=== PATIENT | female | born 1975 | race Caucasian/White ===

== ENCOUNTER 2018-05-22 18:12 | Observation (INO) | payer OTHER ==
--- OUTSIDE RECORDS SUMMARY | 2018-05-22 18:15 | XMS REPORT | Clinical Summary ---
:1975 Author Organization [facility] Address [address] [place] [address] Care Team Providers Name Role Phone Houston Sahu MD Primary Care Provider Allergies Active Allergy Reactions Severity Noted Date Comments Amoxicillin-Pot Clavulanate 01/27/2016 Clindamycin Hcl 01/27/2016 Codeine 01/27/2016 Current Medications Prescription Sig. Disp. Refills Start Date End Date Status nadolol (CORGARD) 40 Take 40 mg by 01/13/2016 Active MG tablet mouth daily. cholecalciferol, Take 2,000 Active vitamin D3, (VITAMIN Units by D3) 2,000 unit mouth daily. capsule capsule B complex with Take by mouth Active C#20-folic acid 1 mg daily. capsule levothyroxine 07/02/2017 Active (SYNTHROID, LEVOXYL) 125 mcg tablet rosuvastatin 07/04/2017 Active (CRESTOR) 10 MG tablet methotrexate 2.5 MG Take 8 32 tablet 2 08/27/2017 08/27/2018 Active tablet tablets (20 mg total) by mouth once a week. folic acid (FOLVITE) Take 1 tablet 30 tablet 1 09/10/2017 09/10/2018 Active 1 MG tablet (1 mg total) by mouth daily. meloxicam (MOBIC) 15 Take 1 tablet 30 tablet 3 10/31/2017 10/31/2018 Active mg tablet (15 mg total) by mouth daily. folic acid (FOLVITE) Take 1 tablet 30 tablet 2 06/16/2016 06/05/2017 Discontinued 1 MG tablet (1 mg total) by mouth daily. simvastatin (ZOCOR) Take 10 mg by 07/24/2017 Discontinued 10 MG tablet mouth nightly. levothyroxine Take 25 mcg 07/24/2017 Discontinued (SYNTHROID, LEVOXYL) by mouth 25 mcg tablet every morning. meloxicam (MOBIC) 15 Take 1 tablet 30 tablet 2 03/14/2017 06/27/2017 Discontinued mg tablet (15 mg total) by mouth daily. methotrexate 2.5 MG Take 8 24 tablet 5 03/14/2017 08/27/2017 Discontinued tablet tablets (20 mg total) by mouth once a week for 180 days. folic acid (FOLVITE) Take 1 tablet 30 tablet 2 06/05/2017 09/10/2017 Discontinued 1 MG tablet (1 mg total) by mouth daily. meloxicam (MOBIC) 15 Take 1 tablet 30 tablet 1 06/27/2017 09/03/2017 Discontinued mg tablet (15 mg total) by mouth daily. sulfaSALAzine Take 1 tablet 60 tablet 1 07/24/2017 09/10/2017 Discontinued (AZULFIDINE EN-TAB) ([address] tablet total) by mouth 2 (two) times a day for 90 days. meloxicam (MOBIC) 15 Take 1 tablet 30 tablet 1 09/03/2017 10/31/2017 Discontinued mg tablet (15 mg total) by mouth daily. sulfaSALAzine Take 1 tablet 60 tablet 1 09/10/2017 12/09/2017 (AZULFIDINE EN-TAB) ([address] tablet total) by mouth 2 (two) times a day for 90 days. 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 Hypothyroidism 01/27/2016 Migraines 01/27/2016 Fatigue Visual impairment Menstrual disorder Encounters Date Type Specialty Care Team Description 03/11/2018 Refill Rheumatology Angela Kent MD 11/01/2017 Refill Rheumatology Fallon Hernandez MA 10/31/2017 Refill Rheumatology Fallon Hernandez MA 09/10/2017 Refill Rheumatology Russel Brown MA 09/03/2017 Refill Rheumatology Russel Brown MA 08/27/2017 Refill Rheumatology Russel Brown MA 08/07/2017 Orders Only Rheumatology Provider, MD Art 07/24/2017 Office Visit Rheumatology Elizabeth Olivo Spondyloarthritis ( Primary Dx); MD Ritu Follow-up examination following treatment with high-risk medication; Hypothyroidism, unspecified type 06/27/2017 Refill Rheumatology Russel Brown MA 06/05/2017 Refill Rheumatology BrownRussel MA after 05/21/2017 Family History Medical History Relation Name Comments Multiple sclerosis Father Other Father vascular disease Hyperlipidemia Maternal Aunt Hypertension Maternal Aunt Psoriasis Maternal Aunt Breast cancer Maternal Grandmother Hyperlipidemia Maternal Grandmother Stroke Maternal Grandmother Lung cancer Mother Other Mother MGF, CAD Thyroid disease Mother Alzheimer's disease Paternal Aunt Diabetes Paternal Aunt Heart disease Paternal Grandfather Heart attack Sister age 42 Relation Name Status Comments Father Maternal Aunt Maternal Grandmother Mother Paternal Aunt Paternal Grandfather Sister Social History Tobacco Use Types Packs/Day Years Used Date Former Smoker Cigarettes Quit: 1995 Smokeless Tobacco: Never Used Alcohol Use Drinks/Week oz/Week Comments Yes 2 Glasses of wine 1.2 month Sex Assigned at Date Recorded Not on file Last Filed Vital Signs Vital Sign Reading Time Taken Blood Pressure 137/94 07/24/2017 2:25 PM [employer]EL[employer] Pulse 81 07/24/2017 2:25 PM [employer] INTER[employer]EL[employer] Temperature - - Respiratory Rate - - Oxygen Saturation - - Inhaled Oxygen Concentration - - Weight 114 kg (251 lb) 07/24/2017 2:25 PM [employer]EL[employer] Height 169.5 cm (5' 6.75") 07/24/2017 2:25 PM [employer] INTER[employer] DEVELOPER Body Mass Index 39.61 07/24/2017 2:25 PM 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 after 05/21/2017 Results Miscellaneous Lab Result (08/01/2017) Specimen Blood Narrative Performed At Comprehensive metabolic panel (06/02/2017 8:30 AM) Glucose 127 (H) 65 - 99 mg/dL [facility] Comment: [facility] Fasting reference interval For someone without known diabetes, a glucose value >125 mg/dL indicates that they may have diabetes and this should be confirmed with a follow-up test. BUN, whole blood 9 7 - 25 mg/dL [facility] Creatinine 0.67 0.50 - 1.10 mg/dL [facility] EGFR Non-Afr. Nauruan 107 > OR=60 [facility] mL/min/1.73m2 [facility] EGFR 124 > OR=60 [facility] mL/min/1.73m2 [facility] BUN/creatinine ratio NOT APPLICABLE 6 - 22 (calc) [facility] Sodium 139 135 - 146 mmol/L [facility] Potassium 4.6 3.5 - 5.3 mmol/L [facility] Chloride 101 98 - 110 mmol/L [facility] CO2 29 20 - 31 mmol/L [facility] Calcium 9.0 8.6 - 10.2 mg/dL [facility] Protein 6.3 6.1 - 8.1 g/dL [facility] Albumin, S 4.2 3.6 - 5.1 g/dL [facility] Globulin, total 2.1 1.9 - 3.7 g/dL [facility] (calc) [facility] Albumin/globulin ratio 2.0 1.0 - 2.5 (calc) [facility] Total bilirubin 0.5 0.2 - 1.2 mg/dL [facility] Alkaline phosphatase 51 33 - 115 U/L [facility] AST 25 10 - 30 U/L [facility] ALT 29 6 - 29 U/L [facility] Specimen Blood Narrative Performed At FASTING:[facility] Other Results Text Performing Organization Information: Site ID: [id number] Name: [facility] Address: [address] [place] [address] Director: Eulalia Alvarado MD Performing Organization Address City/State/Zipcode Phone Number [facility] [facility] [address] [phone] after 05/21/2017 Insurance Payer Benefit Plan / Group Subscriber ID Type Phone Address [facility] xxxxxxxxxxx Commercial AETNA AETNA HMO,POS,EPO, MC/EC xxxxxxxxx HMO [phone] [place] [address]
[2018-05-22] MEDS ORDERED: ONDANSETRON 4 MG/2 ML VIAL ONE ×2 (19:08→21:02)
[2018-05-22] MEDS ORDERED: MORPHINE 4 MG/ML SYR ONE ×2 (19:08→22:07)
[2018-05-22] MEDS ORDERED: NA CHLORIDE 0.9% 1,000 ML ONE (19:08)
[2018-05-22 19:26] LABS: Absolute Neutrophil 7.8 K/uL (1.8-8.0); Basophils % 0.9 % (0-1.3); Eosinophils % 2.2 % (0-4.4); Hematocrit 39.2 % (36.0-45.0); Lymphocytes % 24.5 % (15.3-44.8); MCH 31.9 pg (27.0-35.0); MCV 95.4 fL (80-100); MPV 8.8 fL (7.6-11.3); Monocytes % 7.8 % (3.3-12.3); RBC Red Blood Cell Count 4.11 M/uL (3.86-4.86)
--- NOTE | 2018-05-22 20:10 | RAD REPORT ---
EXAM DESCRIPTION: CT - Abdomen Pelvis W Contrast - 05/22/2018 7:56 pm CLINICAL HISTORY: Abdominal pain, left lower quadrant pain COMPARISON: CT imaging December 14, 2017 TECHNIQUE: Biphasic, helical CT imaging of the abdomen and pelvis was performed following 100 ml non -ionic IV contrast. Oral contrast was given. All CT scans are performed using dose optimization technique as appropriate and may include automated exposure control or mA/KV adjustment according to patient size. FINDINGS: No suspicious findings in the lung bases. Diffuse fatty infiltration of the liver is present. No focal liver lesion. Spleen and pancreas are un remarkable. Cholecystectomy clips are present. No biliary tree dilatation. Symmetric renal function is seen with no hydronephrosis or suspicious renal mass. No pyelonephritis o r acute renal parenchymal process. No adrenal abnormality. Contracted urinary bladder shows no suspic ious findings. Uterus is absent. No ovarian abnormality seen. No stomach or small bowel abnormality. Appendix is normal. Colon from cecum through mid descending co aspen shows no suspicious finding. In the proximal sigmoid colon left lower quadrant there is wall thic kening and edematous/inflammatory stranding present over a 4 centimeter long segment. There is additi onal sigmoid diverticulosis. No abscess, free air or surgically emergent finding. No free air or pne umatosis. No other inflammatory stranding. No mass or bulky lymphadenopathy. A 6 centimeter diameter infraumbilical hernia is present. Neck is 4 cm. Hernia size has enlarged minimally since December. No suspicious bony findings. IMPRESSION: Moderate acute diverticulitis proximal sigmoid colon. No abscess, free air or surgically emergent component. Diffuse fatty infiltration of the liver. Fat only infraumbilical hernia slightly enlarged from May examination.
[2018-05-22 20:44] LABS: Urine Blood TRACE (NEG); Urine Glucose 1+ (NEG); Urine Protein NEGATIVE (NEG)
[2018-05-22] MEDS ORDERED: CIPROFLOXACIN 400mg IV 400 MG/200 ML BAG IV ONE (21:02)
[2018-05-22] MEDS ORDERED: METRONIDAZOLE 500mg IVPB 500 MG/100 ML BAG IV ONE (21:02)
[2018-05-22 21:23] LABS: ALT/SGPT 70 U/L (12-78); AST/SGOT 49 U/L (15-37); Albumin 3.8 g/dL (3.4-5.0); Alkaline Phosphatase 68 U/L (45-117); BUN Blood Urea Nitrogen 9 mg/dL (7-18); Bicarbonate 28 mmol/L (21-32); Bilirubin Direct 0.2 mg/dL (0-0.2); Bilirubin Total 0.9 mg/dL (0.2-1.0); Glucose Level 98 mg/dL (74-106); Lipase 116 U/L (73-393); Potassium 3.8 mmol/L (3.5-5.1); Protein, Total 7.4 g/dL (6.4-8.2); Sodium Level 139 mmol/L (136-145)
--- NOTE | 2018-05-22 21:59 | ER ---
Nurse's Notes [facility] Name: Niki Martino Age: 43 yrs Sex: Female : 1975 Arrival Date: 05/22/2018 Time: 18:14 Bed 23 Private MD: Houston Sahu Diagnosis: Diverticulitis of large intestine without perforation or abscess without bleeding Presentation: 05/22 18:20 Presenting complaint: Patient states: Reports LLQ pain for 3-4 days with loose stools. aj Patient denies blood in stool. Transition of care: patient was not received from another setting of care. Onset of symptoms was May 22, 2018. Risk Assessment: Do you want to hurt yourself or someone else? Patient reports no desire to harm self or others. Initial Sepsis Screen: Does the patient meet any 2 criteria? No. Patient's initial sepsis screen is negative. Does the patient have a suspected source of infection? No. Patient's initial sepsis screen is negative. Care prior to arrival: None. 18:20 Method Of Arrival: Ambulatory aj 18:20 Acuity: LUZMARIA 3 aj Triage Assessment: 18:24 General: Appears in no apparent distress. comfortable, Behavior is calm, cooperative, aj appropriate for age. Pain: Complains of pain in left lower quadrant. Neuro: Level of Consciousness is awake, alert, obeys commands, Oriented to person, place, time, situation, Appropriate for age. Respiratory: Airway is patent Respiratory effort is even, unlabored, Respiratory pattern is regular, symmetrical. GI: Reports lower abdominal pain. Derm: Skin is intact, is healthy with good turgor, Skin is pink, warm \T\ dry. normal. 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:24 LMP N/A - Hysterectomy aj Historical: - Allergies: 18:24 Augmentin; aj 18:24 Cleocin; aj 18:24 Codeine; aj 18:24 BENZOYL PEROXIDE; aj - Home Meds: 18:24 Trulicity 0.75 mg/0.5 mL subcutaneous pnij 0.5 mL once wkly [Active]; Synjardy oral aj oral [Active]; levothyroxine 125 mcg tab 1 tab once daily [Active]; Crestor 10 mg oral tab 1 tab once daily [Active]; folic acid 1 mg Oral tab 1 tab once daily [Active]; nadolol oral oral [Active]; meloxicam 15 mg oral tab 1 tab once daily [Active]; Belsomra 15 mg oral tab 1 tab [Active]; methotrexate sodium 2.5 mg Oral tab 1 tab once wkly [Active]; - PMHx: 18:24 Migraines; Hyperlipidemia; Diabetes - NIDDM; Arthritis; Hypothyroidism; aj - PSHx: 18:24 Cholecystectomy; abdominal surgery; Tubal ligation; ablation; aj - Immunization history:: Adult Immunizations up to date. - Social history:: Smoking status: Patient/guardian denies using tobacco. - Ebola Screening: : Patient negative for fever greater than or equal to 101.5 degrees Fahrenheit, and additional compatible Ebola Virus Disease symptoms Patient denies exposure to infectious person Patient denies travel to an Ebola-affected area in the 21 days before illness onset No symptoms or risks identified at this time. Screenin:30 Abuse screen: Denies threats or abuse. Nutritional screening: No deficits noted. tl3 Tuberculosis screening: No symptoms or risk factors identified. Fall Risk None identified. Assessment: 18:30 General: Appears uncomfortable, well groomed, well developed, well nourished, Behavior tl3 is calm, cooperative, appropriate for age. Pain: Complains of pain in abdomen and left lower quadrant Pain currently is 6 out of 10 on a pain scale. at worst was 10 out of 10 on a pain scale. Neuro: No deficits noted. Level of Consciousness is awake, alert, obeys commands, Oriented to person, place, time, situation, Appropriate for age. Cardiovascular: Patient's skin is warm and dry. Respiratory: Airway is patent Respiratory effort is even, unlabored, Respiratory pattern is regular, symmetrical. GI: Bowel sounds present X 4 quads. Abdomen is tender to palpation. : No signs and/or symptoms were reported regarding the genitourinary system. EENT: No signs and/or symptoms were reported regarding the EENT system. Derm: No signs and/or symptoms reported regarding the dermatologic system. Musculoskeletal: No signs and/or symptoms reported regarding the musculoskeletal system. 19:38 Reassessment: Patient appears in no apparent distress at this time. Patient and/or tl3 family updated on plan of care and expected duration. Pain level reassessed. Patient is alert, oriented x 3, equal unlabored respirations, skin warm/dry/pink. pillow offered and pt position changed, pain has decreased. 21:06 Reassessment: Patient appears in no apparent distress at this time. Patient and/or tl3 family updated on plan of care and expected duration. Pain level reassessed. Patient is alert, oriented x 3, equal unlabored respirations, skin warm/dry/pink. pillow offered for comfort. Vital Signs: 18:24 BP 134 / 83; Pulse 74; Resp 18; Temp 97.2; Pulse Ox 99% on R/A; Weight 108.86 kg; aj Height 5 ft. 5 in. (165.10 cm); 18:30 BP 128 / 80; Pulse 68; Resp 18; Pulse Ox 98% on R/A; tl3 19:38 BP 112 / 58; Pulse 58; Resp 18; Pulse Ox 98% on R/A; tl3 21:06 BP 113 / 63; Pulse 62; Resp 18; Pulse Ox 99% on R/A; tl3 18:24 Body Mass Index 39.94 (108.86 kg, 165.10 cm) aj ED Course: 18:14 Patient arrived in ED. mr 18:15 Houston Sahu MD is Private Physician. mr 18:21 Triage completed. aj 18:24 Arm band placed on left wrist. Patient placed in an exam room. aj 18:26 Lia Barnes, [place] is Primary Nurse. tl3 18:30 Khai Dawson NP is PHCP. pm1 18:30 Jose Francisco Michaud MD is Attending Physician. pm1 18:30 Patient has correct armband on for positive identification. tl3 18:30 No provider procedures requiring assistance completed. tl3 19:23 Radiology exam delayed due to lab results not completed at this time. (BUN/Creatinine) mw3 test not completed at this time. 19:[address] mw3 19:55 CT completed. Patient tolerated procedure well. Patient moved back from CT. mw3 19:56 CT Abd/Pelvis - W/Contrast: IV contrast only In Process Unspecified. EDMS 21:58 Beto Jhaveri MD is Hospitalizing Provider. pm1 23:48 Patient admitted, IV remains in place. tl3 Administered Medications: 19:10 Drug: NS 0.9% 1000 ml Route: IV; Rate: 1000 ml; Site: left antecubital; Delivery: tl3 Primary tubing; 21:07 Follow up: IV Status: Completed infusion; IV Intake: 1000ml tl3 19:10 Drug: morphine 4 mg Route: IVP; Infused Over: 2 mins; Site: left antecubital; tl3 19:41 Follow up: Response: No adverse reaction; Pain is decreased tl3 19:10 Drug: Zofran 4 mg Route: IVP; Infused Over: 2 mins; Site: left antecubital; tl3 19:41 Follow up: Response: No adverse reaction tl3 21:05 Drug: Cipro 500 mg Route: PO; tl3 22:08 Follow up: Response: No adverse reaction tl3 21:05 Drug: Flagyl 500 mg Volume: 100 ml; Route: IVPB; Rate: 200 ml/hr; Infused Over: 30 tl3 mins; Site: left antecubital; 22:08 Follow up: IV Status: Completed infusion; IV Intake: 100ml tl3 21:34 Drug: Zofran 4 mg Route: IVP; Infused Over: 2 mins; Site: left antecubital; tl3 22:07 Follow up: Response: No adverse reaction tl3 22:07 Drug: morphine 4 mg Route: IVP; Infused Over: 2 mins; Site: left antecubital; tl3 23:49 Follow up: Response: No adverse reaction; Pain is decreased tl3 Intake: 21:07 IV: 1000ml; Total: 1000ml. tl3 22:08 IV: 100ml; Total: 1100ml. tl3 Outcome: 21:59 Decision to Hospitalize by Provider. pm1 23:47 Admitted to Med/surg accompanied by tech, via wheelchair, with chart, Report called to luis Garza RN 23:47 Condition: stable 23:47 Instructed on the need for admit, Demonstrated understanding of instructions. 05/23 00:41 Patient left the ED. tl3 Signatures: Dispatcher [employer] EDMS Cassia White RN RN aj Rivera, Khai Ho, [employer]OOFING PLANT SUPERVISOR [employer]OO[employer]ING PLANT SUPERVISOR pm1 Lia Barnes RN RN tl3 Nena Rodriguez mw3
--- NOTE | 2018-05-22 21:59 | EDPHYS ---
Physician Documentation [facility] Name: Niki Martino Age: 43 yrs Sex: Female : 1975 Arrival Date: 05/22/2018 Time: 18:14 Bed 23 Private MD: Houston Sahu ED Physician Jose Francisco Michaud HPI: 05/22 19:00 This 43 yrs old Female presents to ER via Ambulatory with complaints of pm1 Abdominal Pain, Nausea, Diarrhea. 19:00 The patient presents with abdominal pain in the left lower quadrant. Onset: The pm1 symptoms/episode began/occurred 5 day(s) ago. The symptoms do not radiate. Associated signs and symptoms: Pertinent positives: diarrhea, nausea, Pertinent negatives: chest pain, dysuria, fever, shortness of breath. The symptoms are described as achy, constant. Modifying factors: The symptoms are alleviated by nothing, the symptoms are aggravated by positioning. Severity of pain: in the emergency department the pain is actually worse. The patient has not experienced similar symptoms in the past. The patient has not recently seen a physician, the patient's primary care provider is Dr. Sona Wilcox, Dr. Jhaveri. 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 LMP N/A - Hysterectomy aj Historical: - Allergies: 18:24 Augmentin; aj 18:24 Cleocin; aj 18:24 Codeine; aj 18:24 BENZOYL PEROXIDE; aj - Home Meds: 18:24 Trulicity 0.75 mg/0.5 mL subcutaneous pnij 0.5 mL once wkly [Active]; Synjardy oral aj oral [Active]; levothyroxine 125 mcg tab 1 tab once daily [Active]; Crestor 10 mg oral tab 1 tab once daily [Active]; folic acid 1 mg Oral tab 1 tab once daily [Active]; nadolol oral oral [Active]; meloxicam 15 mg oral tab 1 tab once daily [Active]; Belsomra 15 mg oral tab 1 tab [Active]; methotrexate sodium 2.5 mg Oral tab 1 tab once wkly [Active]; - PMHx: 18:24 Migraines; Hyperlipidemia; Diabetes - NIDDM; Arthritis; Hypothyroidism; aj - PSHx: 18:24 Cholecystectomy; abdominal surgery; Tubal ligation; ablation; aj - Immunization history:: Adult Immunizations up to date. - Social history:: Smoking status: Patient/guardian denies using tobacco. - Ebola Screening: : Patient negative for fever greater than or equal to 101.5 degrees Fahrenheit, and additional compatible Ebola Virus Disease symptoms Patient denies exposure to infectious person Patient denies travel to an Ebola-affected area in the 21 days before illness onset No symptoms or risks identified at this time. ROS: 19:00 Constitutional: Negative for fever, chills, and weight loss, Eyes: Negative for injury, pm1 pain, redness, and discharge, ENT: Negative for injury, pain, and discharge, Neck: Negative for injury, pain, and swelling, Cardiovascular: Negative for chest pain, palpitations, and edema, Respiratory: Negative for shortness of breath, cough, wheezing, and pleuritic chest pain. 19:00 Back: Negative for injury and pain, : Negative for injury, bleeding, discharge, and swelling, MS/Extremity: Negative for injury and deformity, Skin: Negative for injury, rash, and discoloration, Neuro: Negative for headache, weakness, numbness, tingling, and seizure. 19:00 Abdomen/GI: Positive for abdominal pain, nausea, diarrhea, Negative for vomiting, rectal bleeding. Exam: 19:00 Constitutional: This is a well developed, well nourished patient who is awake, alert, pm1 and in no acute distress. Head/Face: Normocephalic, atraumatic. Eyes: Pupils equal round and reactive to light, extra-ocular motions intact. Lids and lashes normal. Conjunctiva and sclera are non-icteric and not injected. Cornea within normal limits. Periorbital areas with no swelling, redness, or edema. ENT: Nares patent. No nasal discharge, no septal abnormalities noted. Tympanic membranes are normal and external auditory canals are clear. Oropharynx with no redness, swelling, or masses, exudates, or evidence of obstruction, uvula midline. Mucous membranes moist. Neck: Trachea midline, no thyromegaly or masses palpated, and no cervical lymphadenopathy. Supple, full range of motion without nuchal rigidity, or vertebral point tenderness. No Meningismus. Chest/axilla: Normal chest wall appearance and motion. Nontender with no deformity. No lesions are appreciated. Cardiovascular: Regular rate and rhythm with a normal S1 and S2. No gallops, murmurs, or rubs. Normal PMI, no JVD. No pulse deficits. Respiratory: Lungs have equal breath sounds bilaterally, clear to auscultation and percussion. No rales, rhonchi or wheezes noted. No increased work of breathing, no retractions or nasal flaring. 19:00 Back: No spinal tenderness. No costovertebral tenderness. Full range of motion. Skin: Warm, dry with normal turgor. Normal color with no rashes, no lesions, and no evidence of cellulitis. MS/ Extremity: Pulses equal, no cyanosis. Neurovascular intact. Full, normal range of motion. 19:00 Abdomen/GI: Inspection: abdomen appears normal, Bowel sounds: normal, Palpation: soft, moderate abdominal tenderness, in the left lower quadrant, mass, is not appreciated, rebound tenderness, is not appreciated. 19:00 Neuro: Orientation: is normal, Motor: is normal, moves all fours, Sensation: is normal, no obvious gross deficits. Vital Signs: 18:24 BP 134 / 83; Pulse 74; Resp 18; Temp 97.2; Pulse Ox 99% on R/A; Weight 108.86 kg; aj Height 5 ft. 5 in. (165.10 cm); 18:30 BP 128 / 80; Pulse 68; Resp 18; Pulse Ox 98% on R/A; tl3 19:38 BP 112 / 58; Pulse 58; Resp 18; Pulse Ox 98% on R/A; tl3 21:06 BP 113 / 63; Pulse 62; Resp 18; Pulse Ox 99% on R/A; tl3 18:24 Body Mass Index 39.94 (108.86 kg, 165.10 cm) aj MDM: 18:30 Patient medically screened. pm1 21:46 Data reviewed: vital signs. Data interpreted: Pulse oximetry: on room air is 99 %. pm1 Interpretation: normal. Counseling: I had a detailed discussion with the patient and/or guardian regarding: the historical points, exam findings, and any diagnostic results supporting the discharge/admit diagnosis, lab results, radiology results. 21:47 Physician consultation: Beto Jhaveri MD was called at 21:48, left message. pm1 22:14 Physician consultation: Beto Jhaveri MD was called at 22:14, no answer. pm1 22:30 Physician consultation: Beto Jhaveri MD was called at 22:30, was contacted at 22:30, pm1 regarding admission, patient's condition, and will see patient Will admit patient to observation status if the patient desires to stay in the hospital versus outpatient therapy. 22:51 ED course: Patient wants to stay in the hospital for observation. pm1 05/22 18:41 Order name: Basic Metabolic Panel; Complete Time: 21:25 pm1 05/22 18:41 Order name: CBC with Diff; Complete Time: 19:58 pm1 05/22 18:41 Order name: Creatinine for Radiology; Complete Time: 19:58 pm1 05/22 18:41 Order name: Hepatic Function; Complete Time: 21:25 pm1 05/22 18:41 Order name: Lipase; Complete Time: 21:25 pm1 05/22 19:21 Order name: Urine Dipstick--Ancillary (enter results); Complete Time: 21:25 ms 05/22 18:41 Order name: CT Abd/Pelvis - W/Contrast: IV contrast only; Complete Time: 20:17 pm1 05/22 19:21 Order name: Urine --Ancillary (enter results); Complete Time: 21:25 ms 05/22 18:41 Order name: IV Saline Lock; Complete Time: 19:00 pm1 05/22 18:41 Order name: Labs collected and sent; Complete Time: 19:00 pm1 05/22 18:41 Order name: Urine Dipstick-Ancillary (obtain specimen); Complete Time: 19:20 pm1 05/22 18:41 Order name: Urine Test (obtain specimen); Complete Time: 19:20 pm1 Administered Medications: 19:10 Drug: NS 0.9% 1000 ml Route: IV; Rate: 1000 ml; Site: left antecubital; Delivery: tl3 Primary tubing; 21:07 Follow up: IV Status: Completed infusion; IV Intake: 1000ml tl3 19:10 Drug: morphine 4 mg Route: IVP; Infused Over: 2 mins; Site: left antecubital; tl3 19:41 Follow up: Response: No adverse reaction; Pain is decreased tl3 19:10 Drug: Zofran 4 mg Route: IVP; Infused Over: 2 mins; Site: left antecubital; tl3 19:41 Follow up: Response: No adverse reaction tl3 21:05 Drug: Cipro 500 mg Route: PO; tl3 22:08 Follow up: Response: No adverse reaction tl3 21:05 Drug: Flagyl 500 mg Volume: 100 ml; Route: IVPB; Rate: 200 ml/hr; Infused Over: 30 tl3 mins; Site: left antecubital; 22:08 Follow up: IV Status: Completed infusion; IV Intake: 100ml tl3 21:34 Drug: Zofran 4 mg Route: IVP; Infused Over: 2 mins; Site: left antecubital; tl3 22:07 Follow up: Response: No adverse reaction tl3 22:07 Drug: morphine 4 mg Route: IVP; Infused Over: 2 mins; Site: left antecubital; tl3 23:49 Follow up: Response: No adverse reaction; Pain is decreased tl3 Disposition: 05/23 07:20 Co-signature as Attending Physician, Jose Francisco Michaud MD. rn Disposition: 05/22/18 21:59 Hospitalization ordered by Beto Jhaveri for Observation. Preliminary diagnosis is Diverticulitis of large intestine without perforation or abscess without bleeding. - Bed requested for Telemetry/MedSurg (observation). - Status is Observation. tl3 - Condition is Stable. - Problem is new. - Symptoms have improved. UTI on Admission? No Signatures: Dispatcher [employer] EDMS Dayana Krishnamurthy RN RN mw Myers, Amanda RN Jose Francisco Bacon MD MD rn Marinas, Patrick, MARYA HARDWOOD FLOOR FINISHER pm1 Lia Barnes RN RN tl3 Corrections: (The following items were deleted from the chart) 05/22 22:32 21:59 Hospitalization Ordered by Beto Jhaveri MD for Observation. Preliminary diagnosis mw is Diverticulitis of large intestine without perforation or abscess without bleeding. Bed requested for Telemetry/MedSurg (observation). Status is Observation. Condition is Stable. Problem is new. Symptoms have improved. UTI on Admission? No. pm1 05/23 00:41 05/22 22:32 05/22/2018 21:59 Hospitalization Ordered by Beto Jhaveri MD for tl3 Observation. Preliminary diagnosis is Diverticulitis of large intestine without perforation or abscess without bleeding. Bed requested for Telemetry/MedSurg (observation). Status is Observation. Condition is Stable. Problem is new. Symptoms have improved. UTI on Admission? No. mw
[2018-05-23] MEDS ORDERED: MORPHINE 4 MG/ML SYR IV PRN (00:32)
[2018-05-23] MEDS ORDERED: ACETAMINOPHEN 500 MG TAB PO PRN (00:32)
[2018-05-23] MEDS: NA CHLORIDE 0.9% 1,000 ML IV SCH ×2 (00:49→10:51)
[2018-05-23] MEDS: ONDANSETRON 4 MG/2 ML VIAL IV PRN ×3 (00:59→09:51)
[2018-05-23] MEDS: METRONIDAZOLE 500mg IVPB 500 MG/100 ML BAG IV SCH ×2 (05:00→09:00)
[2018-05-23 05:16] LABS: Absolute Lymphocytes (CBC) 1.7 K/uL (0.7-4.9); Absolute Monocytes 0.8 K/uL (0.1-1.3); Absolute Neutrophil 8.1 K/uL (1.8-8.0); Basophils % 0.6 % (0-1.3); Eosinophils % 0.5 % (0-4.4); Hematocrit 37.3 % (36.0-45.0); Lymphocytes % 15.6 % (15.3-44.8); MCH 31.9 pg (27.0-35.0); MCV 94.9 fL (80-100); MPV 8.7 fL (7.6-11.3); Monocytes % 7.4 % (3.3-12.3); RBC Red Blood Cell Count 3.92 M/uL (3.86-4.86)
[2018-05-23 05:34] LABS: ALT/SGPT 77 U/L (12-78); AST/SGOT 66 U/L (15-37); Albumin 3.3 g/dL (3.4-5.0); Alkaline Phosphatase 73 U/L (45-117); BUN Blood Urea Nitrogen 7 mg/dL (7-18); Bicarbonate 28 mmol/L (21-32); Bilirubin Direct 0.3 mg/dL (0-0.2); Bilirubin Total 0.9 mg/dL (0.2-1.0); Glucose Level 117 mg/dL (74-106); Lipase 108 U/L (73-393); Potassium 3.9 mmol/L (3.5-5.1); Protein, Total 6.5 g/dL (6.4-8.2); Sodium Level 142 mmol/L (136-145)
[2018-05-23] MEDS ORDERED: CIPROFLOXACIN HCL 500 MG TAB PO SCH (09:00)
--- NOTE | 2018-05-23 09:40 | P.SSS ---
Patient History Date of Service: 05/23/18 Primary Care Provider: Sona Wilcox Reason for admission: Diverticulosis Allergies amoxicillin trihydrate [From Augmentin] Allergy (Verified 05/23/18 00:40) Unknown benzoyl peroxide Allergy (Verified 05/23/18 00:40) Rash clindamycin HCl [From Cleocin] Allergy (Verified 05/23/18 00:40) Rash clindamycin palmitate HCl [From Cleocin] Allergy (Verified 05/23/18 00:40) Rash clindamycin phosphate [From Cleocin] Allergy (Verified 05/23/18 00:40) Rash codeine Allergy (Verified 05/23/18 00:40) hallucination potassium clavulanate [From Augmentin] Allergy (Verified 05/23/18 00:40) Rash Home Medications: Dulaglutide [Trulicity] 0.75 mg SQ EVERY 7TH DAY 05/23/18 Empagliflozin/Metformin HCl [Synjardy 5-500 mg Tablet] 1 tab PO DAILY 05/23/18 Folic Acid 1 mg PO DAILY 05/23/18 Levothyroxine [Synthroid*] 1 tab PO DAILY 05/23/18 Meloxicam 15 mg PO BEDTIME 05/23/18 Methotrexate Sodium [Methotrexate] 8 tab PO EVERY 7TH DAY 05/23/18 Nadolol [Corgard*] 40 mg PO BEDTIME 05/23/18 Rosuvastatin [Crestor*] 20 mg PO BEDTIME 05/23/18 Suvorexant [Belsomra] 15 mg PO BEDTIME 05/23/18 - Past Medical/Surgical History Has patient received pneumonia vaccine in the past: Yes Diabetic: Yes -: DM -: HLD -: migraine -: hypothyroidism -: arthritis -: elisabeth -: abd sx -: tubal ligation -: ablation -: hysterectomy - Social History Smoking Status: Never smoker Alcohol use: Yes Place of Residence: Home Review of Systems 10-point ROS is otherwise unremarkable Gastrointestinal: Nausea, Abdominal Pain (left lower quadrant) Physical Examination - Vital Signs Temperature: 97.6 F Blood Pressure: 115/59 Pulse: 65 Respirations: 18 Pulse Ox (%): 96 - Physical Exam General: Alert, In no apparent distress HEENT: Atraumatic, PERRLA, Mucous membr. moist/pink, EOMI, Sclerae nonicteric Neck: Supple, 2+ carotid pulse no bruit, No LAD, Without JVD or thyroid abnormality Respiratory: Clear to auscultation bilaterally, Normal air movement Cardiovascular: Regular rate/rhythm, Normal S1 S2 Gastrointestinal: Normal bowel sounds, No tenderness Musculoskeletal: No tenderness Integumentary: No rashes Neurological: Normal gait, Normal speech, Normal strength at 5/5 x4 extr, Normal tone, Normal affect Lymphatics: No axilla or inguinal lymphadenopathy - Studies Laboratory Data (last 24 hrs) 05/22/18 18:50: Creatinine 0.70 05/22/18 18:50: WBC 12.1 H, Hgb 13.1, Hct 39.2, Plt Count 303 05/22/18 18:50: Sodium 139, Potassium 3.8, BUN 9, Creatinine 0.70, Glucose 98, Total Bilirubin 0.9, AST 49 H, ALT 70, Alkaline Phosphatase 68, Lipase 116 - Diagnosis (Problem(s)) (1) Diabetes 1.5, managed as type 2 Current Visit: Yes Status: Acute Plan: patient is not on insulin. Will need to hold her medications. Will see how she does when she starts using a normal diet (2) Rheumatoid arthritis Current Visit: Yes Status: Acute Plan: Patient can hold the meloxicam for now. Advised regular scheduled dosages of tylenol. She can resume her mtx when her improvement of symptoms Qualifiers: Rheumatoid arthritis location: unspecified site Rheumatoid factor presence : unspecified presence Qualified Code(s): M06.9 - Rheumatoid arthritis, unspecified (3) Diverticulitis Onset Date: 05/23/18 Current Visit: Yes Status: Acute Plan: mild symptoms. She is tolerating orals. Will advance her diet. If she can tolerate a soft diet. Will discharge her on oral antibiotics. - Disposition Disposition: ROUTINE DISCHARGE Diet: Big Bar Activity: Ad osman Physician Review: Patient Assessed, Agree with Above Assessment and Plan Critical Care: No Time Spent Managing Pts Care (In Minutes): 50
[2018-05-23] MEDS ORDERED: metroNIDAZOLE 500 MG TABLET PO SCH (14:00)
[2018-05-23] MEDS ORDERED: NADOLOL 40 MG TAB PO SCH (21:00)
[2018-05-24] MEDS ORDERED: LEVOTHYROXINE SOD 0.125 MG TAB PO SCH (06:30)
[2018-05-24] MEDS ORDERED: FOLIC ACID 1 MG TABLET PO SCH (09:00)
== END 2018-05-23 12:50 | disposition home or self-care (01) ==
LOC: ER 18:12 → ERHOLD 23:13 → 2ND 23:55
PROVIDERS: ADMIT Internal Medicine; ATTEND Internal Medicine
DX: K57.92 Diverticulitis of intestine, part unspecified, without perforation or abscess without bleeding (principal); E11.9 Type 2 diabetes mellitus without complications; E78.5 Hyperlipidemia, unspecified; E03.9 Hypothyroidism, unspecified; M06.9 Rheumatoid arthritis, unspecified; Z88.0 Allergy status to penicillin
CPT/HCPCS: 36415; 74177; 80048; 80076; 81003; 81025; 83690; 85025; 96361; 96365; 96375; 99285; G0378; J0744; J2405; J7030; Q9967

== ENCOUNTER 2018-09-17 13:31 | Emergency (ER) | payer OTHER ==
--- OUTSIDE RECORDS SUMMARY | 2018-09-17 13:41 | XMS REPORT | Clinical Summary ---
:1975 Author Organization [facility] Address [address] [place] [address] Care Team Providers Name Role Phone Houston Sahu MD Primary Care Provider Allergies Active Allergy Reactions Severity Noted Date Comments Amoxicillin-Pot Clavulanate 01/27/2016 Clindamycin Hcl 01/27/2016 Codeine 01/27/2016 Medications Medication Sig Dispensed Refills Start Date End Date Status nadolol (CORGARD) 40 Take 40 mg by 0 01/13/2016 Active MG tablet mouth daily. cholecalciferol, Take 2,000 0 Active vitamin D3, (VITAMIN Units by D3) 2,000 unit mouth daily. capsule capsule B complex with Take by mouth 0 Active C#20-folic acid 1 mg daily. capsule levothyroxine 0 07/02/2017 Active (SYNTHROID, LEVOXYL) 125 mcg tablet rosuvastatin 0 07/04/2017 Active (CRESTOR) 10 MG tablet meloxicam (MOBIC) 15 TAKE 1 TABLET 30 tablet 2 08/30/2018 Active mg tablet BY MOUTH DAILY methotrexate 2.5 MG Take 8 32 tablet 2 08/27/2017 08/27/2018 tablet tablets (20 mg total) by mouth once a week. meloxicam (MOBIC) 15 Take 1 tablet 30 tablet 1 09/03/2017 10/31/2017 Discontinued mg tablet (15 mg total) by mouth daily. sulfaSALAzine Take 1 tablet 60 tablet 1 09/10/2017 12/09/2017 (AZULFIDINE EN-TAB) ([address] tablet total) by mouth 2 (two) times a day for 90 days. folic acid (FOLVITE) Take 1 tablet 30 tablet 1 09/10/2017 09/10/2018 1 MG tablet (1 mg total) by mouth daily. meloxicam (MOBIC) 15 Take 1 tablet 30 tablet 3 10/31/2017 06/25/2018 Discontinued mg tablet (15 mg total) by mouth daily. 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 Hypothyroidism 01/27/2016 Migraines 01/27/2016 Fatigue Visual impairment Menstrual disorder Encounters Date Type Specialty Care Team Description 08/29/2018 Refill Rheumatology Angela Kent MD 07/01/2018 Telephone Rheumatology Angela Kent MD 06/25/2018 Refill Rheumatology Angela Kent MD 03/11/2018 Refill Rheumatology Angela Kent MD 11/01/2017 Refill Rheumatology Fallon Hernandez MA 10/31/2017 Refill Rheumatology Fallon Hernandez MA after 09/16/2017 Family History Medical History Relation Name Comments [...] Assigned at Date Recorded Not on file Job Start Date Occupation Industry Not on file Not on file Not on file Travel History Travel Start Travel End No recent travel history available. Last Filed Vital Signs Not on file Plan of Treatment Health Maintenance Due Date Last Done Comments CERVICAL CANCER SCREENING 1994 INFLUENZA VACCINE 03/06/2018 Results Not on fileafter 09/16/2017 Insurance Payer Benefit Plan / Group Subscriber ID Type Phone Address [facility] xxxxxxxxxxx Commercial AETNA AETNA HMO,POS,EPO, MC/EC xxxxxxxxx HMO Advance Directives Patient has advance care planning documents on file. For more information, please contact:Sahil Malin[address] [place] [address]
--- NOTE | 2018-09-17 14:37 | RAD REPORT ---
EXAM DESCRIPTION: CT - Head Brain Wo Cont - 09/17/2018 2:32 pm CLINICAL HISTORY: Headache;Numbness Headache COMPARISON: Sinus Wo Cont dated 09/03/2018; Sinuses W/Wo Cont dated 07/02/2018 TECHNIQUE: All CT scans are performed using dose optimization technique as appropriate and may inclu de automated exposure control or mA/KV adjustment according to patient size. FINDINGS: No intracranial hemorrhage, hydrocephalus or extra-axial fluid collection.No areas of brai n edema or evidence of midline shift. The paranasal sinuses and mastoids are clear. The calvarium is intact. IMPRESSION: No acute intracranial abnormality.
[2018-09-17] MEDS ORDERED: KETOROLAC 30 MG/ML INJ ONE (14:40)
[2018-09-17] MEDS ORDERED: NA CHLORIDE 0.9% 1,000 ML ONE (14:40)
[2018-09-17] MEDS ORDERED: METOCLOPRAMIDE 10 MG/2mL INJ ONE (14:40)
[2018-09-17] MEDS ORDERED: DIPHENHYDRAMINE 50 MG/ML VIAL ONE (14:40)
--- NOTE | 2018-09-17 15:52 | ER ---
Nurse's Notes [facility] Name: Niki Martino Age: 43 yrs Sex: Female : 1975 Arrival Date: 09/17/2018 Time: 13:33 Bed 26 Private MD: EDNA CASTRO Diagnosis: Migraine without aura, intractable, with status migrainosus Presentation: 09/17 13:38 Presenting complaint: Migraine and nausea x 1 week. Transition of care: patient was not hb received from another setting of care. Onset of symptoms was September 12, 2018. Risk Assessment: Do you want to hurt yourself or someone else? Patient reports no desire to harm self or others. Initial Sepsis Screen: Does the patient meet any 2 criteria? No. Patient's initial sepsis screen is negative. Does the patient have a suspected source of infection? No. Patient's initial sepsis screen is negative. Care prior to arrival: None. 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:36 LMP N/A - Hysterectomy hb Historical: - Allergies: 13:39 Augmentin; hb 13:39 BENZOYL PEROXIDE; hb 13:39 Cleocin; hb 13:39 Codeine; hb - Home Meds: 13:39 Belsomra 15 mg Oral tab 1 tab [Active]; Crestor 10 mg Oral tab 1 tab once daily hb [Active]; folic acid 1 mg Oral tab 1 tab once daily [Active]; levothyroxine 125 mcg tab 1 tab once daily [Active]; meloxicam 15 mg Oral tab 1 tab once daily [Active]; methotrexate sodium 2.5 mg Oral tab 1 tab once wkly [Active]; nadolol Oral [Active]; Synjardy Oral [Active]; Trulicity 0.75 mg/0.5 mL subcutaneous pnij 0.5 mL once wkly [Active]; - PMHx: 13:39 Arthritis; Diabetes - NIDDM; Hyperlipidemia; Hypothyroidism; Migraines; hb - PSHx: 13:39 Cholecystectomy; abdominal surgery; Tubal ligation; ablation; Hysterectomy; hb - Immunization history:: Adult Immunizations up to date. - Social history:: Smoking status: Patient/guardian denies using tobacco. - Ebola Screening: : No symptoms or risks identified at this time. Screenin:52 Abuse screen: Denies threats or abuse. Nutritional screening: No deficits noted. tl3 Tuberculosis screening: No symptoms or risk factors identified. Fall Risk None identified. Assessment: 13:52 General: Appears uncomfortable, slender, well groomed, well developed, Behavior is tl3 calm, cooperative, appropriate for age. Pain: Complains of pain in right side of head. 13:52 Neuro: Level of Consciousness is awake, alert, obeys commands, Oriented to person, tl3 place, time, situation, Appropriate for age. Cardiovascular: Patient's skin is warm and dry. Respiratory: Airway is patent Respiratory effort is even, unlabored, Respiratory pattern is regular, symmetrical. GI: No signs and/or symptoms were reported involving the gastrointestinal system. 14:50 Reassessment: No changes from previously documented assessment. Patient and/or family tl3 updated on plan of care and expected duration. Pain level reassessed. Patient is alert, oriented x 3, equal unlabored respirations, skin warm/dry/pink. lights dimmed and door closed for pt comfort. 15:58 Reassessment: Patient appears in no apparent distress at this time. No changes from tl3 previously documented assessment. Patient and/or family updated on plan of care and expected duration. Pain level reassessed. Patient is alert, oriented x 3, equal unlabored respirations, skin warm/dry/pink. pt being discharged. Vital Signs: 13:36 BP 140 / 86; Pulse 61; Resp 16; Temp 98.2; Pulse Ox 100% ; Pain 10/10; hb 14:50 BP 115 / 80; Pulse 57; Resp 18; Pulse Ox 100% ; tl3 15:58 BP 120 / 75; Pulse 53; Resp 18; Pulse Ox 99% ; tl3 ED Course: 13:33 Patient arrived in ED. sb2 13:34 EDNA CASTRO is Private Physician. sb2 13:38 Triage completed. hb 13:39 Arm band placed on. hb 13:45 Lia Barnes, [place] is Primary Nurse. tl3 13:52 Patient has correct armband on for positive identification. tl3 13:52 No provider procedures requiring assistance completed. tl3 14:06 Saman Garcia PA is PHCP. jr8 14:06 Jose Francisco Michaud MD is Attending Physician. jr8 14:20 Urine collected: clean catch specimen, clear, dalila colored, Amount Voided: 80mL. jp3 14:[address] via wheelchair. tl3 14:32 CT Head Brain wo Cont In Process Unspecified. EDMS 14:50 Inserted saline lock: 22 gauge in right hand, using aseptic technique. tl3 15:50 Adrian Quick MD is Referral Physician. jr8 15:58 IV discontinued, intact, bleeding controlled, No redness/swelling at site. Pressure tl3 dressing applied. Administered Medications: 14:45 Drug: Reglan 10 mg Route: IVP; Infused Over: 2 mins; Site: right hand; tl3 15:44 Follow up: Response: No adverse reaction tl3 14:45 Drug: Benadryl 25 mg Route: IVP; Infused Over: 2 mins; Site: right hand; tl3 15:44 Follow up: Response: No adverse reaction tl3 14:45 Drug: TORadol 30 mg Route: IVP; Infused Over: 1 mins; Site: right hand; tl3 15:44 Follow up: Response: No adverse reaction tl3 14:45 Drug: NS 0.9% 1000 ml Route: IV; Rate: 1000 ml; Site: right hand; Delivery: Primary tl3 tubing; 15:43 Follow up: IV Status: Completed infusion; IV Intake: 1000ml tl3 Intake: 15:43 IV: 1000ml; Total: 1000ml. tl3 Outcome: 15:51 Discharge ordered by . jr8 15:58 Discharged to home ambulatory. tl3 15:58 Condition: improved 15:58 Discharge instructions given to patient, Instructed on discharge instructions, follow up and referral plans. Demonstrated understanding of instructions, follow-up care. 16:00 Patient left the ED. tl3 Signatures: Dispatcher [employer] EDMS Saman Garcia PA PA jr8 Feli Montes De Oca RN RN Kim Cuellar sb2 Lia Barnes RN RN tl3 Roberto Sosa jp3
--- NOTE | 2018-09-17 15:53 | EDPHYS ---
Physician Documentation [facility] Name: Niki Martino Age: 43 yrs Sex: Female : 1975 Arrival Date: 09/17/2018 Time: 13:33 Bed 26 Private MD: EDNA CASTRO ED Physician Jose Francisco Michaud HPI: 09/17 14:41 This 43 yrs old Female presents to ER via Ambulatory with complaints of jr8 MIGRAINE. 14:41 The patient complains of pain to the right side of the back of head and right occipital jr8 area. The patient describes the headache as constant. Onset: The symptoms/episode began/occurred acutely, 1 week(s) ago. Associated signs and symptoms: Pertinent positives: nausea, Photophobia blurred vision. Severity of symptoms: At its worst the pain was moderate, in the emergency department the pain is unchanged. Headache History: The patient has had previous headaches and this one is different than previous episodes. The symptoms are alleviated by nothing. the symptoms are aggravated by lights, movement, noise, stress. The patient has not experienced similar symptoms in the past. The patient has not recently seen a physician. Patient with history of migraines and is on abortive and preventative. Stated that she has had a migraine that has continued for over a week now. Saw PCP and was given a Toradol shot with some relief but then came back after it wore off. Has never had a migraine last this long in past. [place] some numbness to lower lip. Denies any other s/s or deficits . 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:36 LMP N/A - Hysterectomy hb Historical: - Allergies: 13:39 Augmentin; hb 13:39 BENZOYL PEROXIDE; hb 13:39 Cleocin; hb 13:39 Codeine; hb - Home Meds: 13:39 Belsomra 15 mg Oral tab 1 tab [Active]; Crestor 10 mg Oral tab 1 tab once daily hb [Active]; folic acid 1 mg Oral tab 1 tab once daily [Active]; levothyroxine 125 mcg tab 1 tab once daily [Active]; meloxicam 15 mg Oral tab 1 tab once daily [Active]; methotrexate sodium 2.5 mg Oral tab 1 tab once wkly [Active]; nadolol Oral [Active]; Synjardy Oral [Active]; Trulicity 0.75 mg/0.5 mL subcutaneous pnij 0.5 mL once wkly [Active]; - PMHx: 13:39 Arthritis; Diabetes - NIDDM; Hyperlipidemia; Hypothyroidism; Migraines; hb - PSHx: 13:39 Cholecystectomy; abdominal surgery; Tubal ligation; ablation; Hysterectomy; hb - Immunization history:: Adult Immunizations up to date. - Social history:: Smoking status: Patient/guardian denies using tobacco. - Ebola Screening: : No symptoms or risks identified at this time. ROS: 14:41 Eyes: Negative for injury, pain, redness, and discharge, ENT: Negative for injury, jr8 pain, and discharge, Neck: Negative for injury, pain, and swelling, Cardiovascular: Negative for chest pain, palpitations, and edema, Respiratory: Negative for shortness of breath, cough, wheezing, and pleuritic chest pain, Abdomen/GI: Negative for abdominal pain, nausea, vomiting, diarrhea, and constipation, Back: Negative for injury and pain, MS/Extremity: Negative for injury and deformity, Skin: Negative for injury, rash, and discoloration. 14:41 Neuro: Positive for headache, visual changes. Exam: 14:41 Eyes: Pupils equal round and reactive to light, extra-ocular motions intact. Lids and jr8 lashes normal. Conjunctiva and sclera are non-icteric and not injected. Cornea within normal limits. Periorbital areas with no swelling, redness, or edema. ENT: Nares patent. No nasal discharge, no septal abnormalities noted. Tympanic membranes are normal and external auditory canals are clear. Oropharynx with no redness, swelling, or masses, exudates, or evidence of obstruction, uvula midline. Mucous membranes moist. Neck: Trachea midline, no thyromegaly or masses palpated, and no cervical lymphadenopathy. Supple, full range of motion without nuchal rigidity, or vertebral point tenderness. No Meningismus. Cardiovascular: Regular rate and rhythm with a normal S1 and S2. No gallops, murmurs, or rubs. Normal PMI, no JVD. No pulse deficits. Respiratory: Lungs have equal breath sounds bilaterally, clear to auscultation and percussion. No rales, rhonchi or wheezes noted. No increased work of breathing, no retractions or nasal flaring. Abdomen/GI: Soft, non-tender, with normal bowel sounds. No distension or tympany. No guarding or rebound. No evidence of tenderness throughout. Back: No spinal tenderness. No costovertebral tenderness. Full range of motion. Skin: Warm, dry with normal turgor. Normal color with no rashes, no lesions, and no evidence of cellulitis. MS/ Extremity: Pulses equal, no cyanosis. Neurovascular intact. Full, normal range of motion. Neuro: Awake and alert, GCS 15, oriented to person, place, time, and situation. Cranial nerves II-XII grossly intact. Motor strength 5/5 in all extremities. Sensory grossly intact. Cerebellar exam normal. Normal gait. Vital Signs: 13:36 BP 140 / 86; Pulse 61; Resp 16; Temp 98.2; Pulse Ox 100% ; Pain 10/10; hb 14:50 BP 115 / 80; Pulse 57; Resp 18; Pulse Ox 100% ; tl3 15:58 BP 120 / 75; Pulse 53; Resp 18; Pulse Ox 99% ; tl3 MDM: 14:15 Patient medically screened. [facility] 15:50 Data reviewed: vital signs, nurses notes, radiologic studies, CT scan, and as a result, [facility] I will discharge patient. Data interpreted: Pulse oximetry: on room air is 100 %. Interpretation: normal. Counseling: I had a detailed discussion with the patient and/or guardian regarding: the historical points, exam findings, and any diagnostic results supporting the discharge/admit diagnosis, radiology results, the need for outpatient follow up, a neurologist, to return to the emergency department if symptoms worsen or persist or if there are any questions or concerns that arise at home. Response to treatment: the patient's symptoms have markedly improved after treatment. 09/17 15:48 Order name: Urine Dipstick--Ancillary (enter results) 09/17 15:48 Order name: Urine --Ancillary (enter results) 09/17 14:16 Order name: CT Head Brain wo Cont; Complete Time: 14:40 8 09/17 14:16 Order name: IV; Complete Time: 15:06 8 Administered Medications: 14:45 Drug: Reglan 10 mg Route: IVP; Infused Over: 2 mins; Site: right hand; tl3 15:44 Follow up: Response: No adverse reaction tl3 14:45 Drug: Benadryl 25 mg Route: IVP; Infused Over: 2 mins; Site: right hand; tl3 15:44 Follow up: Response: No adverse reaction tl3 14:45 Drug: TORadol 30 mg Route: IVP; Infused Over: 1 mins; Site: right hand; tl3 15:44 Follow up: Response: No adverse reaction tl3 14:45 Drug: NS 0.9% 1000 ml Route: IV; Rate: 1000 ml; Site: right hand; Delivery: Primary tl3 tubing; 15:43 Follow up: IV Status: Completed infusion; IV Intake: 1000ml tl3 Disposition: 18:21 Co-signature as Attending Physician, Jose Francisco Michaud MD. rn Disposition: 09/17/18 15:51 Discharged to Home. Impression: Migraine without aura, intractable, with status migrainosus. - Condition is Stable. - Discharge Instructions: Migraine Headache, Recurrent Migraine Headache. - Medication Reconciliation Form, Thank You Letter, Antibiotic Education, Prescription Opioid Use form. - Follow up: Adrian Quick MD; When: 2 - 3 days; Reason: Recheck today's complaints, Continuance of care, Re-evaluation by your physician. - Problem is new. - Symptoms have improved. Signatures: Dispatcher [employer] EDMS Jose Francisco Michaud MD MD rn Roszak, Josh, PA PA jr8 Feli Montes De Oca RN RN hb Lowrey, Tammy, RN RN tl3 Corrections: (The following items were deleted from the chart) 16:00 15:51 09/17/2018 15:51 Discharged to Home. Impression: Migraine without aura, tl3 intractable, with status migrainosus. Condition is Stable. Forms are Medication Reconciliation Form, Thank You Letter, Antibiotic Education, Prescription Opioid Use. Follow up: Adrian Quick; When: 2 - 3 days; Reason: Recheck today's complaints, Continuance of care, Re-evaluation by your physician. Problem is new. Symptoms have improved. jr8
[2018-09-17 16:35] LABS: Urine Blood NEGATIVE (NEG); Urine Glucose 2+ (NEG); Urine Protein NEGATIVE (NEG); Urine pH 5.5 (5.0-7.0)
== END 2018-09-17 16:00 | disposition home or self-care (01) ==
LOC: ER 13:31
DX: G43.011 Migraine without aura, intractable, with status migrainosus (principal); E11.9 Type 2 diabetes mellitus without complications; E78.5 Hyperlipidemia, unspecified; E03.9 Hypothyroidism, unspecified; Z88.1 Allergy status to other antibiotic agents; Z88.5 Allergy status to narcotic agent; Z88.0 Allergy status to penicillin
CPT/HCPCS: 70450; 81003; 81025; 96361; 96374; 96375; 99284; J2765; J7030

== ENCOUNTER 2019-06-20 11:57 | Emergency (ER) | payer OTHER ==
--- OUTSIDE RECORDS SUMMARY | 2019-06-20 11:58 | XMS REPORT ---
:1975 [facility] Address [address] [place] [address] Care Team Providers Name Role Phone Unavailable Unavailable Unavailable Problems This patient has no known problems. Allergies, Adverse Reactions, Alerts This patient has no known allergies or adverse reactions. Medications This patient has no known medications.
[2019-06-20 12:35] LABS: Absolute Lymphocytes (CBC) 2.7 K/uL (0.7-4.9); Basophils % 1.3 % (0-1.3); Hematocrit 41.2 % (36.0-45.0); Lymphocytes % 34.9 % (15.3-44.8); MPV 8.1 fL (7.6-11.3); RBC Red Blood Cell Count 4.36 M/uL (3.86-4.86)
[2019-06-20 12:40] LABS: Protime INR 1.05
[2019-06-20] MEDS ORDERED: NA CHLORIDE 0.9% 1,000 ML ONE ×2 (13:27→15:48)
[2019-06-20] MEDS ORDERED: DIAZEPAM 10 MG/2 ML INJ SYRINGE ONE (13:27)
[2019-06-20 13:35] LABS: ALT/SGPT 30 U/L (12-78); AST/SGOT 21 U/L (15-37); Albumin 4.1 g/dL (3.4-5.0); Alkaline Phosphatase 64 U/L (45-117); BUN Blood Urea Nitrogen 9 mg/dL (7-18); Bicarbonate 30 mmol/L (21-32); Bilirubin Direct 0.2 mg/dL (0-0.2); Bilirubin Total 0.7 mg/dL (0.2-1.0); Glucose Level 111 mg/dL (74-106); Magnesium 2.1 mg/dL (1.8-2.4); NT PRO-BNP 190 pg/mL (<125); Potassium 4.3 mmol/L (3.5-5.1); Protein, Total 7.4 g/dL (6.4-8.2); Sodium Level 140 mmol/L (136-145); Thyroid Stimulating Hormone 0.065 uIU/mL (0.360-3.740); Troponin (Emerg Dept Use Only) < 0.02 ng/mL (0.0-0.045)
--- NOTE | 2019-06-20 14:07 | RAD REPORT ---
EXAM DESCRIPTION: RAD - Chest Single View - 06/20/2019 2:00 pm CLINICAL HISTORY: CHEST PAIN Chest pain. COMPARISON: CHEST SINGLE VIEW dated 09/04/2014 FINDINGS: Portable technique limits examination quality. The lungs are grossly clear. The heart is normal in size. No displaced fractures. IMPRESSION: No acute intrathoracic process suspected.
--- NOTE | 2019-06-20 16:50 | EKG ---
Test Date: 2019-06-20 Test Time: 12:07:12 Tumblers Supervisor: ANDREAS MEASUREMENT RESULTS: Intervals: Rate: 89 VT: 158 QRSD: 80 QT: 350 QTc: 425 [place]: P: 60 VT: 158 QRS: 67 T: 54 INTERPRETIVE STATEMENTS: Normal sinus rhythm Normal ECG Compared to ECG 12/16/2018 12:37:03 No significant changes Electronically Signed On 06-20-19 16:49:30 ACCOUNTS EXECUTIVE by Kenny Philip
--- NOTE | 2019-06-20 17:21 | EDPHYS ---
Physician Documentation [facility] Name: Niki Martino Age: 44 yrs Sex: Female : 1975 Arrival Date: 06/20/2019 Time: 11:57 Bed 25 Private MD: ED Physician Alex Watts HPI: 06/20 13:55 This 44 yrs old Female presents to ER via Ambulatory with complaints of Chest snw Pain. 13:55 Onset: The symptoms/episode began/occurred suddenly. Associated signs and symptoms: snw Pertinent positives: shortness of breath. Modifying factors: The patient symptoms are alleviated by nothing. It is unknown whether or not the patient has had similar symptoms in the past. The patient has been recently seen by a physician:. 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: 12:06 LMP N/A - Hysterectomy tw2 Historical: - Allergies: 12:06 Augmentin; tw2 12:06 BENZOYL PEROXIDE; tw2 12:06 Cleocin; tw2 12:06 Codeine; tw2 - Home Meds: 12:06 folic acid 1 mg Oral tab 1 tab once daily [Active]; escitalopram oxalate 10 mg oral tab tw2 1 tab once daily [Active]; nadolol 40 mg oral tab [Active]; rosuvastatin 10 mg oral tab 1 tab once daily [Active]; magnesium oxide 400 mg Oral tab [Active]; montelukast 10 mg oral tab 1 tab once daily [Active]; Trulicity 0.75 mg/0.5 mL subcutaneous pnij 0.5 mL once wkly [Active]; methotrexate sodium 20 mg Oral tab 1 tab once wkly [Active]; alprazolam 0.5 mg Oral tab 1 tab 3 times per day [Active]; emgality [Active]; Vyvanse 40 mg oral cap 1 cap once daily [Active]; Synthroid 125 mcg Oral tab 1 tab once daily [Active]; - PMHx: 12:06 Migraines; Hypothyroidism; Hyperlipidemia; Arthritis; Diabetes - NIDDM; tw2 - PSHx: 12:06 Cholecystectomy; Tubal ligation; abdominal surgery; ablation; Hysterectomy; Uterine tw2 ablation; - Immunization history:: Adult Immunizations. - Social history:: Smoking status: . - Ebola Screening: : Patient denies exposure to infectious person. ROS: 13:53 Eyes: Negative for injury, pain, redness, and discharge, ENT: Negative for injury, snw pain, and discharge, Neck: Negative for injury, pain, and swelling, Cardiovascular: Positive for chest pain, palpitations, negative for edema. 13:53 Back: Negative for injury and pain, : Negative for injury, bleeding, discharge, and swelling, MS/Extremity: Negative for injury and deformity, Skin: Negative for injury, rash, and discoloration. 13:53 Constitutional: Positive for poor sleep, hyperventilating, palpitations. 13:53 Respiratory: Positive for shortness of breath, at rest. 13:53 Abdomen/GI: Positive for nausea. 13:53 Neuro: Positive for lightheadedness. 13:53 Psych: Positive for insomnia. Exam: 13:52 Head/Face: Normocephalic, atraumatic. Eyes: Pupils equal round and reactive to light, snw extra-ocular motions intact. Lids and lashes normal. Conjunctiva and sclera are non-icteric and not injected. Cornea within normal limits. Periorbital areas with no swelling, redness, or edema. ENT: Nares patent. No nasal discharge, no septal abnormalities noted. Tympanic membranes are normal and external auditory canals are clear. Oropharynx with no redness, swelling, or masses, exudates, or evidence of obstruction, uvula midline. Mucous membranes moist. Neck: Trachea midline, no thyromegaly or masses palpated, and no cervical lymphadenopathy. Supple, full range of motion without nuchal rigidity, or vertebral point tenderness. No Meningismus. Chest/axilla: Normal chest wall appearance and motion. Nontender with no deformity. No lesions are appreciated. Cardiovascular: Regular rate and rhythm with a normal S1 and S2. No gallops, murmurs, or rubs. Normal PMI, no JVD. No pulse deficits. 13:52 Abdomen/GI: Soft, non-tender, with normal bowel sounds. No distension or tympany. No guarding or rebound. No evidence of tenderness throughout. Back: No spinal tenderness. No costovertebral tenderness. Full range of motion. Skin: Warm, dry with normal turgor. Normal color with no rashes, no lesions, and no evidence of cellulitis. MS/ Extremity: Pulses equal, no cyanosis. Neurovascular intact. Full, normal range of motion. Neuro: Awake and alert, GCS 15, oriented to person, place, time, and situation. Cranial nerves II-XII grossly intact. Motor strength 5/5 in all extremities. Sensory grossly intact. Cerebellar exam normal. Normal gait. 13:52 Constitutional: The patient appears alert, awake, anxious, restless, dry appearing, + hyperventilation 13:52 Respiratory: the patient does not display signs of respiratory distress, Respirations: normal, shallow respirations, tachypnea, Breath sounds: are clear throughout, hyperventilating. 13:52 Psych: Behavior/mood is pleasant, anxious, Affect is animated, Oriented to person, place, time, Patient has no thoughts/intents to harm self or others. Vital Signs: 12:06 BP 143 / 105; Pulse 93; Resp 17; Temp 97.7(O); Pulse Ox 100% on R/A; Weight 90.26 kg tw2 (R); Pain 8/10; 13:30 BP 150 / 96; Pulse 54; Resp 18; Pulse Ox 96% on R/A; wh 15:17 BP 134 / 82; Pulse 52; Resp 16; Pulse Ox 100% on R/A; wh 16:45 BP 157 / 86; Pulse 49; Resp 18; Pulse Ox 100% on R/A; wh MDM: 12:37 Patient medically screened. snw 17:22 Data reviewed: vital signs, nurses notes. Data interpreted: Pulse oximetry: on room air snw is 100 %. Interpretation: normal. Counseling: I had a detailed discussion with the patient and/or guardian regarding: the historical points, exam findings, and any diagnostic results supporting the discharge/admit diagnosis, the presence of at least one elevated blood pressure reading (>120/80) during this emergency department visit, lab results, radiology results, the need for outpatient follow up, to return to the emergency department if symptoms worsen or persist or if there are any questions or concerns that arise at home. Special discussion: I have referred the patient to see his PCP for further evaluation of high blood pressure. Based on the history and exam findings, there is no indication for further emergent testing or inpatient evaluation. I discussed with the patient/guardian the need to see the primary care provider for further evaluation of the symptoms. 06/20 12:11 Order name: Basic Metabolic Panel; Complete Time: 13:36 06/20 12:11 Order name: CBC with Diff; Complete Time: 12:42 06/20 12:11 Order name: LFT's; Complete Time: 13:36 06/20 12:11 Order name: Magnesium; Complete Time: 13:36 06/20 12:11 Order name: NT PRO-BNP; Complete Time: 13:36 06/20 12:11 Order name: PT-INR; Complete Time: 12:42 06/20 12:11 Order name: Troponin (emerg Dept Use Only); Complete Time: 13:36 06/20 12:11 Order name: XRAY Chest (1 view); Complete Time: 14:16 06/20 12:11 Order name: EKG; Complete Time: 12:19 06/20 12:55 Order name: Add On-Lab snw 06/20 13:14 Order name: Thyroid Stimulating Hormone; Complete Time: 13:36 EDMS 06/20 12:11 Order name: Cardiac monitoring; Complete Time: 12:24 06/20 12:11 Order name: EKG - Nurse/Tech; Complete Time: 12:24 06/20 12:11 Order name: IV Saline Lock; Complete Time: 12:24 06/20 12:11 Order name: Labs collected and sent; Complete Time: 12:24 06/20 12:11 Order name: O2 Per Protocol; Complete Time: 12:24 06/20 12:11 Order name: O2 Sat Monitoring; Complete Time: 12:24 Administered Medications: 13:30 Drug: NS 0.9% 1000 ml Route: IV; Rate: 1 bolus; Site: right antecubital; 15:07 Follow up: Response: No adverse reaction; IV Status: Completed infusion 13:31 Drug: Valium 5 mg Route: IVP; Site: right antecubital; 15:08 Follow up: Response: No adverse reaction; Anxiety decreased; RASS: Alert and Calm (0) 15:53 Drug: NS 0.9% 1000 ml Route: IV; Rate: 1 bolus; Site: right antecubital; 17:30 Follow up: Response: No adverse reaction; IV Status: Completed infusion Disposition: 06/20/19 17:21 Discharged to Home. Impression: Thyrotoxicosis [hyperthyroidism]. - Condition is Stable. - Discharge Instructions: Hyperthyroidism, Palpitations, Rehydration, Adult. - Work release form, Medication Reconciliation Form, Thank You Letter, Antibiotic Education, Prescription Opioid Use form. - Follow up: Private Physician; When: 2 - 3 days; Reason: Recheck today's complaints, Continuance of care, Re-evaluation by your physician. Follow up: Emergency Department; When: As needed; Reason: Worsening of condition. - Notes: Please do not take Levothyroxine x 3 days. Addendum: 06/24/2019 06:39 Co-signature as Attending Physician, Alex Watts MD I agree with the assessment and k dr plan of care. Signatures: Dispatcher [employer] EDMS Alex Watts MD MD [facility] Lois Borden, PHYSICIAN SUPPORT COORDINATOR-C PHYSICIAN SUPPORT COORDINATOR-Csnw Bharati Saldaña RN RN tw2 Scotty Fitzgerald Corrections: (The following items were deleted from the chart) 06/20 17:31 17:21 06/20/2019 17:21 Discharged to Home. Impression: Thyrotoxicosis wh [hyperthyroidism]. Condition is Stable. Forms are Medication Reconciliation Form, Thank You Letter, Antibiotic Education, Prescription Opioid Use. Follow up: Private Physician; When: 2 - 3 days; Reason: Recheck today's complaints, Continuance of care, Re-evaluation by your physician. Follow up: Emergency Department; When: As needed; Reason: Worsening of condition. snw
--- NOTE | 2019-06-20 17:21 | ER ---
Nurse's Notes [facility] Name: Niki Martino Age: 44 yrs Sex: Female : 1975 Arrival Date: 06/20/2019 Time: 11:57 Bed 25 Private MD: Diagnosis: Thyrotoxicosis [hyperthyroidism] Presentation: 06/20 12:01 Presenting complaint: Patient states: i woke up at 1 am with my heart beating fast and tw2 a headache, i took a xanax at 3, i havent slept since then, i came to work, i felt like i couldn't breathe and my chest is hurting. Transition of care: patient was not received from another setting of care. Onset of symptoms was June 20, 2019. Risk Assessment: Do you want to hurt yourself or someone else? Patient reports no desire to harm self or others. Initial Sepsis Screen: Does the patient meet any 2 criteria? No. Patient's initial sepsis screen is negative. Does the patient have a suspected source of infection? No. Patient's initial sepsis screen is negative. Care prior to arrival: None. 12:01 Method Of Arrival: Ambulatory tw2 12:01 Acuity: LUZMARIA 3 tw2 Triage Assessment: 12:07 General: Appears in no apparent distress. Behavior is crying. Pain: Complains of pain tw2 in chest. Cardiovascular: Reports chest pain, shortness of breath. COMMERCIAL COORDINATOR: 12:06 LMP N/A - Hysterectomy tw2 Historical: - Allergies: 12:06 Augmentin; tw2 12:06 BENZOYL PEROXIDE; tw2 12:06 Cleocin; tw2 12:06 Codeine; tw2 - Home Meds: 12:06 folic acid 1 mg Oral tab 1 tab once daily [Active]; escitalopram oxalate 10 mg oral tab tw2 1 tab once daily [Active]; nadolol 40 mg oral tab [Active]; rosuvastatin 10 mg oral tab 1 tab once daily [Active]; magnesium oxide 400 mg Oral tab [Active]; montelukast 10 mg oral tab 1 tab once daily [Active]; Trulicity 0.75 mg/0.5 mL subcutaneous pnij 0.5 mL once wkly [Active]; methotrexate sodium 20 mg Oral tab 1 tab once wkly [Active]; alprazolam 0.5 mg Oral tab 1 tab 3 times per day [Active]; emgality [Active]; Vyvanse 40 mg oral cap 1 cap once daily [Active]; Synthroid 125 mcg Oral tab 1 tab once daily [Active]; - PMHx: 12:06 Migraines; Hypothyroidism; Hyperlipidemia; Arthritis; Diabetes - NIDDM; tw2 - PSHx: 12:06 Cholecystectomy; Tubal ligation; abdominal surgery; ablation; Hysterectomy; Uterine tw2 ablation; - Immunization history:: Adult Immunizations. - Social history:: Smoking status: . - Ebola Screening: : Patient denies exposure to infectious person. Screenin:38 Abuse screen: Denies threats or abuse. Denies injuries from another. Nutritional wh screening: No deficits noted. Tuberculosis screening: No symptoms or risk factors identified. Fall Risk None identified. Assessment: 12:20 General: Appears in no apparent distress. Behavior is cooperative, anxious, crying. wh Pain: Complains of pain in chest Pain radiates to right arm Pain currently is 8 out of 10 on a pain scale. Quality of pain is described as squeezing, Pain began this morning. Neuro: Level of Consciousness is awake, alert, obeys commands, Oriented to person, place, time, situation, Appropriate for age. Cardiovascular: Heart tones S1 S2 Rhythm is regular. Respiratory: Airway is patent Respiratory effort is even, unlabored, Respiratory pattern is regular, symmetrical, Breath sounds are clear bilaterally. GI: Abdomen is flat, non-distended. : No signs and/or symptoms were reported regarding the genitourinary system. EENT: No signs and/or symptoms were reported regarding the EENT system. Derm: Skin is intact, is healthy with good turgor, Skin is pink, warm \T\ dry. normal. Musculoskeletal: Circulation, motion, and sensation intact. 13:30 Reassessment: Patient appears in no apparent distress at this time. No changes from previously documented assessment. Patient and/or family updated on plan of care and expected duration. Pain level reassessed. Patient is alert, oriented x 3, equal unlabored respirations, skin warm/dry/pink. 14:25 Reassessment: Patient appears in no apparent distress at this time. No changes from previously documented assessment. Patient and/or family updated on plan of care and expected duration. Pain level reassessed. Patient is alert, oriented x 3, equal unlabored respirations, skin warm/dry/pink. 15:15 Reassessment: Patient appears in no apparent distress at this time. No changes from previously documented assessment. Patient and/or family updated on plan of care and expected duration. Pain level reassessed. Patient is alert, oriented x 3, equal unlabored respirations, skin warm/dry/pink. Patient states feeling better. Patient states symptoms have improved. 16:45 Reassessment: Patient appears in no apparent distress at this time. No changes from previously documented assessment. Patient and/or family updated on plan of care and expected duration. Pain level reassessed. Patient is alert, oriented x 3, equal unlabored respirations, skin warm/dry/pink. Patient states feeling better. Patient states symptoms have improved. Vital Signs: 12:06 BP 143 / 105; Pulse 93; Resp 17; Temp 97.7(O); Pulse Ox 100% on R/A; Weight 90.26 kg tw2 (R); Pain 8/10; 13:30 BP 150 / 96; Pulse 54; Resp 18; Pulse Ox 96% on R/A; wh 15:17 BP 134 / 82; Pulse 52; Resp 16; Pulse Ox 100% on R/A; wh 16:45 BP 157 / 86; Pulse 49; Resp 18; Pulse Ox 100% on R/A; ED Course: 11:57 Patient arrived in ED. as 12:02 Triage completed. tw2 12:07 Scotty Fitzgerald is Primary Nurse. 12:07 Arm band placed on. EKG completed in triage. Results shown to MD. tw2 12:14 EKG done, by technical marketing engineer. reviewed by Luanne SHIN. tc 12:20 Patient has correct armband on for positive identification. Placed in gown. Bed in low wh position. Call light in reach. Side rails up X 1. private tutor on. Pulse ox on. NIBP on. 12:20 Inserted saline lock: 20 gauge in right antecubital area, using aseptic technique. Blood collected. Patient maintains SpO2 saturation greater than 95% on room air. 12:37 [facility]C [facility]. snw 12:37 Alex Watts MD is Attending Physician. snw 14:01 XRAY Chest (1 view) In Process Unspecified. EDMS 17:29 No provider procedures requiring assistance completed. IV discontinued, intact, bleeding controlled, No redness/swelling at site. Administered Medications: 13:30 Drug: NS 0.9% 1000 ml Route: IV; Rate: 1 bolus; Site: right antecubital; 15:07 Follow up: Response: No adverse reaction; IV Status: Completed infusion 13:31 Drug: Valium 5 mg Route: IVP; Site: right antecubital; 15:08 Follow up: Response: No adverse reaction; Anxiety decreased; RASS: Alert and Calm (0) 15:53 Drug: NS 0.9% 1000 ml Route: IV; Rate: 1 bolus; Site: right antecubital; 17:30 Follow up: Response: No adverse reaction; IV Status: Completed infusion Outcome: 17:21 Discharge ordered by MD. snw 17:29 Discharged to home ambulatory, with family. 17:29 Condition: stable 17:29 Discharge instructions given to patient, Instructed on discharge instructions, follow up and referral plans. POC Hyperthyroidism and Palpitations Demonstrated understanding of instructions, follow-up care, POC 17:31 Patient left the ED. Signatures: Dispatcher [employer] EDMS Lois Borden, STRAP CUTTING MACHINE OPERATOR-C STRAP CUTTING MACHINE OPERATOR-Csnw Isabela Weber Tiffany, merchandise handler EKG Ttc Bharati Saldaña RN RN tw2 Scotty Fitzgerald
[2019-06-20 17:47] VITALS: TEMP 97.7
[2019-06-20 17:49] VITALS: O2SAT 100
[2019-06-20 17:50] VITALS: BP 157/86
== END 2019-06-20 17:31 | disposition home or self-care (01) ==
LOC: ER 11:57
DX: E05.90 Thyrotoxicosis, unspecified without thyrotoxic crisis or storm (principal); Z88.6 Allergy status to analgesic agent; Z88.1 Allergy status to other antibiotic agents; Z88.8 Allergy status to other drugs, medicaments and biological substances; E03.9 Hypothyroidism, unspecified; E11.9 Type 2 diabetes mellitus without complications; E78.5 Hyperlipidemia, unspecified; G43.909 Migraine, unspecified, not intractable, without status migrainosus
CPT/HCPCS: 93005; 85025; 80048; 36415; 83735; 85610; 80076; 84443; 84484; 83880; 71045; J3360; J7030 ×2

== ENCOUNTER 2019-09-14 15:50 | Emergency (ER) | payer OTHER ==
--- OUTSIDE RECORDS SUMMARY | 2019-09-14 15:52 | XMS REPORT ---
:1975 [facility] Address [address] [place] [address] Care Team Providers Name Role Phone Unavailable Unavailable Unavailable Problems This patient has no known problems. Allergies, Adverse Reactions, Alerts This patient has no known allergies or adverse reactions. Medications This patient has no known medications.
[2019-09-14 16:50] LABS: Absolute Lymphocytes (CBC) 3.1 K/uL (0.7-4.9); Hematocrit 38.7 % (36.0-45.0); Lymphocytes % 29.9 % (15.3-44.8); MPV 7.7 fL (7.6-11.3); RBC Red Blood Cell Count 4.02 M/uL (3.86-4.86)
[2019-09-14 16:59] LABS: Protime INR 0.93
[2019-09-14 17:07] LABS: Urine Glucose NEGATIVE (NEG)
[2019-09-14 17:08] LABS: Urine Blood NEGATIVE (NEG); Urine Protein NEGATIVE (NEG); Urine pH 5.5 (5.0-7.0)
[2019-09-14 17:18] LABS: ALT/SGPT 23 U/L (12-78); AST/SGOT 14 U/L (15-37); Albumin 3.2 g/dL (3.4-5.0); Alkaline Phosphatase 67 U/L (45-117); BUN Blood Urea Nitrogen 9 mg/dL (7-18); Bicarbonate 30 mmol/L (21-32); Bilirubin Direct < 0.1 mg/dL (0-0.2); Bilirubin Total 0.4 mg/dL (0.2-1.0); Glucose Level 126 mg/dL (74-106); Magnesium 2.1 mg/dL (1.8-2.4); NT PRO-BNP 60 pg/mL (<125); Potassium 3.5 mmol/L (3.5-5.1); Protein, Total 6.4 g/dL (6.4-8.2); Sodium Level 143 mmol/L (136-145); Troponin (Emerg Dept Use Only) < 0.02 ng/mL (0.0-0.045)
--- NOTE | 2019-09-14 17:58 | ER ---
Nurse's Notes [facility] Name: Niki Martino Age: 44 yrs Sex: Female : 1975 Arrival Date: 09/14/2019 Time: 15:51 Bed 13 Private MD: Diagnosis: Palpitations Presentation: 09/14 16:00 Presenting complaint: Patient states: Left chest pain x 1 week, and palpitations. rb1 Denies fever. Transition of care: patient was not received from another setting of care. Onset of symptoms was September 07, 2019. Risk Assessment: Do you want to hurt yourself or someone else? Patient reports no desire to harm self or others. 16:00 Method Of Arrival: Ambulatory rb1 16:00 Acuity: LUZMARIA 3 rb1 16:00 Initial Sepsis Screen: Does the patient meet any 2 criteria? No. Patient's initial vc sepsis screen is negative. Does the patient have a suspected source of infection? No. Patient's initial sepsis screen is negative. Care prior to arrival: None. Triage Assessment: 16:00 General: Reports fatigue for Denies fever. Pain: Complains of pain in anterior aspect rb1 of left upper chest. Neuro: Level of Consciousness is awake, alert, obeys commands, Oriented to person, place, time, situation. Neuro: Reports dizziness. Cardiovascular: Reports palpitations. Respiratory: Reports shortness of breath at rest on exertion Airway is patent Respiratory effort is even, unlabored, Respiratory pattern is regular, symmetrical. Derm: Skin is pink, warm \T\ dry. Historical: - Allergies: 16:07 Augmentin; rb1 16:07 BENZOYL PEROXIDE; rb1 16:07 Cleocin; rb1 16:07 Codeine; rb1 - PMHx: 16:07 Arthritis; Diabetes - NIDDM; Hyperlipidemia; Hypothyroidism; Migraines; rb1 - PSHx: 16:07 Cholecystectomy; Tubal ligation; abdominal surgery; ablation; Hysterectomy; Uterine rb1 ablation; - Immunization history:: Adult Immunizations up to date. - Coronavirus screen:: The patient has NOT traveled to [place], [place], or [place] in the past 14 days. The patient has NOT had contact with known/suspected case of Coronavirus?. - Social history:: Smoking status: Patient/guardian denies using. - Ebola Screening: : Patient negative for fever greater than or equal to 101.5 degrees Fahrenheit, and additional compatible Ebola Virus Disease symptoms. Screenin:00 Abuse screen: Denies threats or abuse. Nutritional screening: No deficits noted. vc Tuberculosis screening: No symptoms or risk factors identified. Fall Risk None identified. Assessment: 16:30 General: Appears in no apparent distress. uncomfortable, Behavior is calm, cooperative, vc appropriate for age. Pain: Complains of pain in chest and anterior aspect of left upper chest Pain does not radiate. Pain began gradually, 2-3 days ago. Neuro: Level of Consciousness is awake, alert, obeys commands, Oriented to person, place, time, situation, Appropriate for age. Cardiovascular: Patient's skin is warm and dry. Respiratory: Respiratory effort is even, unlabored, Respiratory pattern is regular, symmetrical. Respiratory: Reports shortness of breath. GI: No signs and/or symptoms were reported involving the gastrointestinal system. : No signs and/or symptoms were reported regarding the genitourinary system. EENT: No signs and/or symptoms were reported regarding the EENT system. Derm: Skin temperature is warm. Musculoskeletal: Circulation, motion, and sensation intact. Range of motion: intact in all extremities. 17:30 Reassessment: Patient and/or family updated on plan of care and expected duration. Pain vc level reassessed. Patient is alert, oriented x 3, equal unlabored respirations, skin warm/dry/pink. 18:00 Reassessment: Patient and/or family updated on plan of care and expected duration. Pain vc level reassessed. Patient is alert, oriented x 3, equal unlabored respirations, skin warm/dry/pink. Patient states feeling better. Vital Signs: 16:00 BP 121 / 87; Pulse 86; Resp 18; Temp 98.1(TE); Pulse Ox 100% on R/A; Weight 92.99 kg rb1 (R); Height 5 ft. 6 in. (167.64 cm) (R); Pain 5/10; 17:00 BP 107 / 61; Pulse 76; Resp 12; Pulse Ox 97% on R/A; vc 17:30 BP 111 / 69; Pulse 77; Resp 16; Pulse Ox 95% on R/A; vc 16:00 Body Mass Index 33.09 (92.99 kg, 167.64 cm) rb1 ED Course: 15:51 Patient arrived in ED. as 16:00 Arm band placed on right wrist. rb1 16:00 Patient has correct armband on for positive identification. Placed in gown. Call light vc in reach. Side rails up X 1. website project manager on. Pulse ox on. NIBP on. 16:00 No provider procedures requiring assistance completed. Patient maintains SpO2 vc saturation greater than 95% on room air. 16:03 Triage completed. rb1 16:17 Khai Dawson NP is PHCP. pm1 16:17 Jose Francisco Michaud MD is Attending Physician. pm1 16:33 Natasha Marks, RN is Primary Nurse. vc 18:12 IV discontinued, intact, bleeding controlled, No redness/swelling at site. Pressure vc dressing applied. Administered Medications: No medications were administered Outcome: 17:57 Discharge ordered by . pm1 18:12 Discharged to home ambulatory, with family. vc 18:12 Condition: good 18:12 Discharge instructions given to patient, Instructed on discharge instructions, follow up and referral plans. Demonstrated understanding of instructions, follow-up care. 18:14 Patient left the ED. vc Signatures: Isabela Weber Rebecca, RN RN rb1 Khai Dawson, MARYA DRIER HELPER pm1 Natasha Marks RN RN vc
--- NOTE | 2019-09-14 17:59 | EDPHYS ---
Physician Documentation [facility] Name: Niki Martino Age: 44 yrs Sex: Female : 1975 Arrival Date: 09/14/2019 Time: 15:51 Bed 13 Private MD: ED Physician Jose Francisco Michaud HPI: 09/14 16:25 This 44 yrs old Female presents to ER via Ambulatory with complaints of Chest pm1 Pain. 16:25 The patient presents with a history of irregular heart beat. Context: The symptoms pm1 occur without known cause. Onset: The symptoms/episode began/occurred 1 week(s) ago. Duration: The patient or guardian reports multiple episodes. Modifying factors: The symptoms are aggravated by nothing. The symptoms are alleviated by nothing. Associated signs and symptoms: Pertinent positives: chest pain. Severity of symptoms: in the emergency department the symptoms are unchanged. The patient has experienced similar episodes in the past, a few times. Patient with palpitations, sensation of irregular beat for the past 1 week. Reports sensation of chest pain when the irregular beat occurs. No shortness of breath. She has had a recent cold and was taking cough and cold medications with pseudoephedrine and she stopped taking it due to it being a possible cause for her palpitations. Also stopped taking her Vyvanse as a possible cause. 16:25 Patient is due to see Dr. Diallo for lab draw for her TSH. pm1 Historical: - Allergies: 16:07 Augmentin; rb1 16:07 BENZOYL PEROXIDE; rb1 16:07 Cleocin; rb1 16:07 Codeine; rb1 - PMHx: 16:07 Arthritis; Diabetes - NIDDM; Hyperlipidemia; Hypothyroidism; Migraines; rb1 - PSHx: 16:07 Cholecystectomy; Tubal ligation; abdominal surgery; ablation; Hysterectomy; Uterine rb1 ablation; - Immunization history:: Adult Immunizations up to date. - Coronavirus screen:: The patient has NOT traveled to [place], [place], or [place] in the past 14 days. The patient has NOT had contact with known/suspected case of Coronavirus?. - Social history:: Smoking status: Patient/guardian denies using. - Ebola Screening: : Patient negative for fever greater than or equal to 101.5 degrees Fahrenheit, and additional compatible Ebola Virus Disease symptoms. ROS: 16:25 Constitutional: Negative for fever, chills, and weight loss, Eyes: Negative for injury, pm1 pain, redness, and discharge, ENT: Negative for injury, pain, and discharge, Neck: Negative for injury, pain, and swelling. 16:25 Respiratory: Negative for shortness of breath, cough, wheezing, and pleuritic chest pain, Abdomen/GI: Negative for abdominal pain, nausea, vomiting, diarrhea, and constipation, Back: Negative for injury and pain, MS/Extremity: Negative for injury and deformity, Skin: Negative for injury, rash, and discoloration, Neuro: Negative for headache, weakness, numbness, tingling, and seizure. 16:25 Cardiovascular: Positive for chest pain, palpitations, Negative for edema, orthopnea. Exam: 16:25 Constitutional: This is a well developed, well nourished patient who is awake, alert, pm1 and in no acute distress. Head/Face: Normocephalic, atraumatic. Neck: Trachea midline, no thyromegaly or masses palpated, and no cervical lymphadenopathy. Supple, full range of motion without nuchal rigidity, or vertebral point tenderness. No Meningismus. Chest/axilla: Normal chest wall appearance and motion. Nontender with no deformity. No lesions are appreciated. 16:25 Respiratory: Lungs have equal breath sounds bilaterally, clear to auscultation and percussion. No rales, rhonchi or wheezes noted. No increased work of breathing, no retractions or nasal flaring. Abdomen/GI: Soft, non-tender, with normal bowel sounds. No distension or tympany. No guarding or rebound. No evidence of tenderness throughout. Back: No spinal tenderness. No costovertebral tenderness. Full range of motion. Skin: Warm, dry with normal turgor. Normal color with no rashes, no lesions, and no evidence of cellulitis. MS/ Extremity: Pulses equal, no cyanosis. Neurovascular intact. Full, normal range of motion. 16:25 Cardiovascular: Rate: normal, Rhythm: regular, Pulses: no pulse deficits are appreciated, Heart sounds: normal, Edema: is not appreciated. 16:25 Neuro: Orientation: is normal, Motor: is normal, moves all fours. Vital Signs: 16:00 BP 121 / 87; Pulse 86; Resp 18; Temp 98.1(TE); Pulse Ox 100% on R/A; Weight 92.99 kg rb1 (R); Height 5 ft. 6 in. (167.64 cm) (R); Pain 5/10; 17:00 BP 107 / 61; Pulse 76; Resp 12; Pulse Ox 97% on R/A; vc 17:30 BP 111 / 69; Pulse 77; Resp 16; Pulse Ox 95% on R/A; vc 16:00 Body Mass Index 33.09 (92.99 kg, 167.64 cm) rb1 MDM: 16:18 Patient medically screened. pm1 17:56 Data reviewed: vital signs. Data interpreted: Pulse oximetry: on room air is 97 %. pm1 Interpretation: normal. Counseling: I had a detailed discussion with the patient and/or guardian regarding: the historical points, exam findings, and any diagnostic results supporting the discharge/admit diagnosis, lab results, radiology results, the need for outpatient follow up, for definitive care, a molder setter, to return to the emergency department if symptoms worsen or persist or if there are any questions or concerns that arise at home. 09/14 16:25 Order name: Basic Metabolic Panel; Complete Time: 17:42 pm1 09/14 16:25 Order name: CBC with Diff; Complete Time: 17:02 pm09/14 16:25 Order name: LFT's; Complete Time: 17:42 pm1 09/14 16:25 Order name: Magnesium; Complete Time: 17:42 pm09/14 16:25 Order name: NT PRO-BNP; Complete Time: 17:42 pm1 09/14 16:25 Order name: PT-INR; Complete Time: 17:22 pm09/14 16:25 Order name: Troponin (emerg Dept Use Only); Complete Time: 17:42 pm09/14 16:25 Order name: XRAY Chest (1 view) pm1 09/14 16:25 Order name: EKG; Complete Time: 16:29 pm1 09/14 16:25 Order name: Cardiac monitoring; Complete Time: 18:00 pm1 09/14 16:25 Order name: TSH; Complete Time: 17:42 pm1 09/14 16:42 Order name: Urine Dipstick--Ancillary (enter results); Complete Time: 17:22 ms 09/14 16:42 Order name: Urine --Ancillary (enter results); Complete Time: 17:22 ms 09/14 17:19 Order name: T4 Free; Complete Time: 17:42 EDMS 09/14 16:25 Order name: EKG - Nurse/Tech; Complete Time: 17:59 pm1 09/14 16:25 Order name: IV Saline Lock; Complete Time: 17:59 pm1 09/14 16:25 Order name: Labs collected and sent; Complete Time: 17:59 pm1 09/14 16:25 Order name: O2 Per Protocol; Complete Time: 17:59 pm1 09/14 16:25 Order name: O2 Sat Monitoring; Complete Time: 17:59 pm1 Administered Medications: No medications were administered Disposition: 18:31 Co-signature as Attending Physician, Jose Francisco Michaud MD. rn Disposition: 09/14/19 17:57 Discharged to Home. Impression: Palpitations. - Condition is Stable. - Discharge Instructions: Palpitations. - Medication Reconciliation Form, Thank You Letter, Antibiotic Education, Prescription Opioid Use form. - Follow up: Emergency Department; When: As needed; Reason: Worsening of condition. Follow up: Private Physician; When: 2 - 3 days; Reason: Recheck today's complaints, Continuance of care, Re-evaluation by your physician. - Problem is new. - Symptoms have improved. Signatures: Dispatcher [employer] Jose Francisco Hodgson MD MD rn Barber, Rebecca, RN RN Khai Ramirez NP ADHESION TESTER pm1 Natasha Marks RN RN vc Corrections: (The following items were deleted from the chart) 18:14 17:57 09/14/2019 17:57 Discharged to Home. Impression: Palpitations. Condition is vc Stable. Forms are Medication Reconciliation Form, Thank You Letter, Antibiotic Education, Prescription Opioid Use. Follow up: Emergency Department; When: As needed; Reason: Worsening of condition. Follow up: Private Physician; When: 2 - 3 days; Reason: Recheck today's complaints, Continuance of care, Re-evaluation by your physician. Problem is new. Symptoms have improved. pm1
--- NOTE | 2019-09-14 18:14 | RAD REPORT ---
EXAM DESCRIPTION: RAD - Chest Single View - 09/14/2019 6:06 pm CLINICAL HISTORY: PALPITATIONS Chest pain. COMPARISON: Chest Single View dated 06/20/2019; CHEST SINGLE VIEW dated 09/04/2014 FINDINGS: Portable technique limits examination quality. The lungs are grossly clear. The heart is normal in size. No displaced fractures. IMPRESSION: No acute intrathoracic process suspected.
[2019-09-14 18:22] VITALS: TEMP 98.1
[2019-09-14 18:25] VITALS: BP 111/69; O2SAT 95
--- NOTE | 2019-09-15 06:15 | EKG ---
Test Date: 2019-09-14 Test Time: 16:27:06 Chief Service Dispatcher: LIAM MEASUREMENT RESULTS: Intervals: Rate: 84 WV: 152 QRSD: 82 QT: 360 QTc: 425 [place]: P: 45 WV: 152 QRS: 40 T: 41 INTERPRETIVE STATEMENTS: Normal sinus rhythm Normal ECG Compared to ECG 06/20/2019 12:07:12 No significant changes Electronically Signed On 09-15-19 06:14:06 SPECIALTY MANUFACTURING SUPERVISOR by Kenny Philip
== END 2019-09-14 18:14 | disposition home or self-care (01) ==
LOC: ER 15:50
DX: R00.2 Palpitations (principal); Z88.1 Allergy status to other antibiotic agents; Z88.6 Allergy status to analgesic agent
CPT/HCPCS: 36415; 71045; 80048; 80076; 81003; 81025; 83735; 83880; 84439; 84443; 84484; 85025; 85610; 93005; 99284

== ENCOUNTER 2019-09-23 13:42 | Emergency (ER) | payer OTHER ==
--- OUTSIDE RECORDS SUMMARY | 2019-09-23 13:44 | XMS REPORT | Summary of Care ---
:1975 Author Organization [facility] Address [address] [place] [address] Care Team Providers Name Role Phone Mojgan Diallo Primary Care Provider Reason for Referral Consult, Test & Treat (Routine) Status Reason Specialty Diagnoses / Referred By Referred To Procedures Contact Contact Pending Consult, Test, Dermatology Diagnoses Psoriasis Encounter for long-term (current) use of high-risk medication Encounter for long-term use of non-steroidal anti-inflammatory medication Reed Paiz Dermatology and Treat Procedures LA OFFICE OUTPATIENT NEW 30 MINUTES Pricilla Canales MD [address] [place] [address] [place] [address] [id number] [place] [phone] Phone: Reason for Visit Reason Comments Disease Management Encounter Details Date Type Department Care Team Description 09/02/2019 Office Visit [facility] arlin Paiz, Disease Management Medicine Rheumatology Pricilla Canales MD [address] [place] [address] [address] [facility], [address] [place] [address] [place] [address] Allergies Active Allergy Reactions Severity Noted Date Comments Amoxicillin-Pot Clavulanate 11/23/2017 Benzyl Benzoate 11/23/2017 Clindamycin/Lincomycin 11/23/2017 Codeine 11/23/2017 documented as of this encounter (statuses as of 09/03/2019) Medications Medication Sig Dispensed Refills Start Date End Date Status levothyroxine (SYNTHROID) 75 mcg daily. 0 11/07/2017 Active 125 MCG tablet rosuvastatin (CRESTOR) 10 Take 10 mg by 0 Active MG tablet mouth daily. folic acid (FOLVITE) 1 MG daily. 0 10/19/2017 Active tablet nadolol (CORGARD) 40 MG daily. 0 10/31/2017 Active tablet meloxicam (MOBIC) 15 MG daily. 0 10/31/2017 Active tablet methotrexate (RHEUMATREX) Take 8 Tabs by 32 Tab 2 12/25/2017 Active 2.5 MG tabletIndications: mouth every 7 8 tabs weekly days. Indications: 8 tabs weekly alprazolam (XANAX) 0.5 MG Take 0.5 mg by 0 Active tablet mouth as needed. EMGALITY 120 MG/ML SOAJ Inject 120 mg 1 04/29/2019 Active into the skin every 30 days. Dulaglutide (TRULICITY) Inject into 0 Active 0.75 MG/0.5ML SOPN the skin. montelukast (SINGULAIR) Take 10 mg by 0 Active 10 MG tablet mouth daily. escitalopram (LEXAPRO) 10 Take 10 mg by 0 Active MG tablet mouth daily. Lisdexamfetamine Take by mouth. 0 Active Dimesylate (VYVANSE) 50 MG CAPS eszopiclone (LUNESTA) 3 Take 3 mg by 2 06/16/2019 Active MG TABS mouth daily. Magnesium Oxide (MAGOX Take by mouth. 0 Active 400 OR) etanercept (ENBREL Inject 50 mg 2 Syringe 11 09/02/2019 Active SURECLICK) 50 MG/ML into the skin injection every 7 days. documented as of this encounter (statuses as of 09/03/2019) Active Problems Not on filedocumented as of this encounter (statuses as of 09/03/2019) Social History Tobacco Use Types Packs/Day Years Used Date Former Smoker Quit: 2005 Smokeless Tobacco: Never Used Alcohol Use Drinks/Week oz/Week Comments Yes less than 1 a week Sex Assigned at Date Recorded Not on file Job Start Date Occupation Industry Not on file Not on file Not on file Travel History Travel Start Travel End No recent travel history available. documented as of this encounter Last Filed Vital Signs Vital Sign Reading Time Taken Comments Blood Pressure 155/84 09/02/2019 10:53 AM [employer]GAN[employer] Pulse 59 09/02/2019 10:53 AM [employer]ATIONAL ORGAN[employer] Temperature 36.9 C (98.4 F) 09/02/2019 10:53 AM [employer]NATIONAL ORGAN[employer]ER Respiratory Rate 16 09/02/2019 10:53 AM INTERNATIONAL ORGANIZER Oxygen Saturation 99% 09/02/2019 10:53 AM INTERNATIONAL ORGAN[employer]ER Inhaled Oxygen Concentration - - Weight 94 kg (207 lb 3.2 oz) 09/02/2019 10:53 AM [employer]NATIONAL ORGAN[employer] Height 167.6 cm (5' 6") 09/02/2019 10:53 AM INTERNATIONAL ORGANIZER Body Mass Index 33.44 09/02/2019 10:53 AM INTERNATIONAL ORGANIZER documented in this encounter Patient Instructions Patient InstructionsPricilla Paiz MD - 09/02/2019 11:00 AM CSTenbrel teaching today Update labs in 1 month and 2 months Mammogram update Schedule dermatology appointment After mammogram and over current episode of cough cold - is resolved can start enbrel 50 mg under skin once a week Continue methotrexate 25 mg once A week Folic acid 2 mg daily ( increase from 1mg ) Continue meloxicam 15 mg daily Thank you Pricilla Paiz MD RNATIONAL ORGANIZER documented in this encounter Progress Notes Lni Barker MA - 09/02/2019 11:30 AM CST2 samples enbrel 05/26 [id number] signed by Lin Barker MA at 09/03/2019 8:58 PM CSTPricilla Paiz MD - 09/02/2019 11:00 AM CST HISTORY OF PRESENT ILLNESS: Niki Martino is a 44 y.o. year old female who's here for follow up on seronegative rheumatoid arthritis She is here today accompained by her spouse She has had issues with rash - on her elbows knees hands and states this has been bothering her for a while - she states she has noticed some changes in her joints as well As discussed via mychart she has increased her mtx to 25 mg once a week and is tolerating same ok Past disease course She has hypothyroidism, hypertension, migraine and mild psoriasis. She has been following Dr. Pérez, Started to see her about 3 years ago. She saw one senior business broker before but she did not like the physician's personality. She was diagnosed with spondylitis. Patient does not know what kind of spondylitis she has. She was on Sulfasalzine for more than year. Stopped as she was not doing better. Methotrexate started in 2017 and she still takes it. Last seen in our clinic in 2018. Initially her symptoms resolved with MTX, however over the last 8-9 months she has had progressive symptoms. She notes pain over most of her joints but specifically the 1st tarsals bilaterally, all of her fingers (paticularily her thumb), her bilateral knees, back, and elbows. She does not notice the pain vary throughout the day. She has about 5-10 minutes of morning stiffness in herhands but several hours in her back, shoulders, and knees. She endorses some swelling/warmth of the bilateral elbows and MCPS that is intermittent. She has fatigue which she attributes to changes in her thyroid medications. She denies fevers, chills, Her joint pain has not improved despite continuation of methotrexate and adding sulfasalzine is not helping at all. Her symptom hasn't changed that much. She continues to have pain in the hands, even painful to grab a handle. REVIEW OF SYSTEMS positive in bold. No fevers, chills, sweats, rigors No weight change , anorexia, fatigue, malaise No headache, alopecia, eye redness, photophobia, burning, dry eyes No nasal congestion, sores, oral sores, sore throat, dry mouth No cough or sputum No swollen LN in neck or axilla No pleurisy, SOB, HUSSEIN, PND. No chest pain or palpitations No abdominal pain, nausea, emesis, diarrhea No lower extremity swelling No paresthesias No muscle weakness or pain. No joint pain or swelling No skin rash, no psoriatic like lesions, no nodules, no livedoid rash, nail pitting, no digital ulcers No Raynauds No heat/cold intolerance No depression or anxiety PAST MEDICAL HISTORY Past Medical History: Diagnosis Date Arthritis Hypertension Hypothyroidism Migraine PAST SURGICAL HISTORY Past Surgical History: Procedure Laterality Date HX ABDOMINAL EXPLORATION SURGERY for endometriosis HX CHOLECYSTECTOMY HX HYSTERECTOMY MEDICATIONS Current Outpatient Medications on File Prior to Visit Medication Sig Dispense Refill alprazolam (XANAX) 0.5 MG tablet Take 0.5 mg by mouth as needed. Dulaglutide (TRULICITY) 0.75 MG/0.5ML SOPN Inject into the skin. EMGALITY 120 MG/ML SOAJ Inject 120 mg into the skin every 30 days. 1 escitalopram (LEXAPRO) 10 MG tablet Take 10 mg by mouth daily. eszopiclone (LUNESTA) 3 MG TABS Take 3 mg by mouth daily. 2 folic acid (FOLVITE) 1 MG tablet daily. levothyroxine (SYNTHROID) 125 MCG tablet 75 mcg daily. Lisdexamfetamine Dimesylate (VYVANSE) 50 MG CAPS Take by mouth. Magnesium Oxide (MAGOX 400 OR) Take by mouth. meloxicam (MOBIC) 15 MG tablet daily. methotrexate (RHEUMATREX) 2.5 MG tablet Take 8 Tabs by mouth every 7 days. Indications: 8 tabs weekly 32 Tab 2 montelukast (SINGULAIR) 10 MG tablet Take 10 mg by mouth daily. nadolol (CORGARD) 40 MG tablet daily. rosuvastatin (CRESTOR) 10 MG tablet Take 10 mg by mouth daily. No current facility-administered medications on file prior to visit. ALLERGIES Allergies as of 09/02/2019 - Reviewed 07/08/2019 Allergen Reaction Noted Augmentin [amoxicillin-pot clavulanate] 11/23/2017 Benzyl benzoate 11/23/2017 Clindamycin/lincomycin 11/23/2017 Codeine 11/23/2017 FAMILY HISTORY FH: Family History Problem Relation Name Age of Onset Arthritis-Osteo Mother Rheumatoid Arthritis Maternal Grandmother SOCIAL HISTORY Social History Tobacco Use Smoking status: Former Smoker Last attempt to quit: 2006 Years since quittin.0 Smokeless tobacco: Never Used Substance Use Topics Alcohol use: Yes Comment: less than 1 a week Drug use: Not on file PHYSICAL EXAM BP 155/84 (BP Location: left arm, Patient Position: Sitting, Cuff Size: regular ) | Pulse 59 | Temp98.4 F (36.9 C) (Oral) | Resp 16 | Ht 5' 6" (1.676 m ) | Wt 207 lb 3.2 oz (94 kg) | SpO2 99%| BMI 33.44 kg/m GENERAL: NAD, pleasant, obese HEENT: sclera anicteric, OP clear, PERRL NECK: supple no LAD, no TM, FROM CV: RRR no mgr CHEST: CTA bilateral with no rales no wheezes, equal inspiratory movement bilaterally ABD: soft NT ND BS+ no HSM EXT: no cce Neuro: grossly intact, normal gait, motor exam with nl strength in UE and LE symmetrically. Skin + rash,- appearance of psoriatic patch on her elbows - and arms - no nail pits, no onycholysis,no nodules MUSCULOSKELETAL EXAM : DIP- no Heberdens nodes, no synovitis, nontender (bilateral) PIP - no Bouchards nodes, synovitis, nontender (bilateral) MCP - neg squeeze, no synovitis or effusion, Bunel's test neg, tender (bilateral ) WRIST - FROM to palmar and dorsi flexion, no effusion, no synovitis, neg Tinels and Phalens (bilateral) ELBOWS - no effusion, no synovitis, no nodules or tophi, FROM, no flexion contracture, nontender, notendonitis(bilateral) SHOULDERS - FROM nontender (bilateral) HIPS - FROM nontender, neg for trochanteric bursitis (bilateral) KNEES - no effusion, no synovitis, nontender, no crepitus, no patellar clicking , neg prepatellar bursa tenderness, neg anserine bursa tenderness (bilateral) ANKLES achilles tendinitis MTPs neg squeeze tenderness, no synovitis (bilateral) BACK : tender over midline and paraspinal muscle of C spine and midline over L spine, normal curvature, neg SLR, neg EHL. LONA negative. Fibromyalgia Trigger points negative ADDITIONAL DATA Labs and Xrays were reviewed. IMPRESSION AND PLAN Niki Martino is a 44 y.o. female who was seen today in follow-up for seronegative rheumatoid arthritis, likely psoriatic arthiritis. Patient has elevated inflammatory markers and signs of mild synovitis on exam. Overall, symptoms improved but not totally controlled on MTX. Other than mild URI symptoms she has no signs of infection Risk of using enbrel discussed and same taught and sample given Given her achilles enthesitis and past treatment failures its probably best to start tnf inhibitor Advise avoid other nsaids while on meloxicam Plan enbrel teaching today Update labs in 1 month and 2 months Mammogram update Schedule dermatology appointment After mammogram and over current episode of cough cold - is resolved can start enbrel 50 mg under skin once a week Continue methotrexate 25 mg once A week Folic acid 2 mg daily ( increase from 1mg ) Continue meloxicam 15 mg daily Thank you Pricilla Paiz MD documented in this encounter Plan of Treatment Name Type Priority Associated Order Schedule Diagnoses AMB REF TO Outpatient Referral Routine Psoriasis Ordered: DERMATOLOGY [facility] Encounter for 09/02/2019 long-term (current) use of high-risk medication Encounter for long-term use of non-steroidal anti-inflammatory medication Health Maintenance Due Date Last Done Comments MAMMOGRAM ANNUAL 1975 TETANUS SHOT (ADULT) 1988 BMI FOLLOW UP PLAN 1991 HIV SCREENING 1991 CERVICAL CANCER SCREENING 3 YEAR FOLLOW UP 1994 FLU VACCINE > 6 MONTHS 03/06/2019 documented as of this encounter Results Not on filedocumented in this encounter Visit Diagnoses Diagnosis Psoriasis - Primary Other psoriasis Encounter for long-term (current) use of high-risk medication Encounter for long-term (current) use of other medications Encounter for long-term use of non-steroidal anti-inflammatory medication documented in this encounter Insurance Payer Benefit Plan / Subscriber ID Effective Dates Phone Address Type Group [facility] OPEN xxxxxxxxxxx 2019-[address] PPO ACCESS - JEAN Peoples [phone] documented as of this encounter
--- OUTSIDE RECORDS SUMMARY | 2019-09-23 13:44 | XMS REPORT ---
:1975 [facility] Address [address] [place] [address] Care Team Providers Name Role Phone Unavailable Unavailable Unavailable Problems This patient has no known problems. Allergies, Adverse Reactions, Alerts This patient has no known allergies or adverse reactions. Medications This patient has no known medications.
[2019-09-23] MEDS ORDERED: NA CHLORIDE 0.9% 1,000 ML ONE (14:59)
[2019-09-23] MEDS ORDERED: KETOROLAC 30 MG/ML INJ ONE (14:59)
[2019-09-23] MEDS ORDERED: ONDANSETRON 4 MG/2 ML VIAL ONE ×2 (14:59→17:24)
--- NOTE | 2019-09-23 15:17 | RAD REPORT ---
EXAM DESCRIPTION: CT - Head Brain Wo Cont - 09/23/2019 3:01 pm CLINICAL HISTORY: HEADACHE COMPARISON: Head Brain Wo Cont dated 09/17/2018 TECHNIQUE: Axial 5 mm thick images of the head were obtained without IV contrast. All CT scans are performed using dose optimization technique as appropriate and may include automated exposure control or mA/KV adjustment according to patient size. FINDINGS: No intracranial hemorrhage, mass, edema or shift of mid-line structures. No acute infarcti on changes seen. No abnormal extra-axial fluid collections. Ventricles are normal. Mastoid air cells and visualized portions of the paranasal sinuses are clear. No acute bony findings. IMPRESSION: Negative non-contrast CT head examination.
[2019-09-23] MEDS ORDERED: MORPHINE 2 MG/ML SYR ONE (16:57)
--- NOTE | 2019-09-23 17:02 | ER ---
Nurse's Notes [facility] Name: Niki Martino Age: 44 yrs Sex: Female : 1975 Arrival Date: 09/23/2019 Time: 13:43 Bed 7 Private MD: Diagnosis: Migraine with aura, intractable, without status migrainosus Presentation: 09/23 14:27 Presenting complaint: Patient states: left sided headache since yesterday, feels like iw stabbing pain, +hx of migraines, has been battling a sinus infection, today she got very dizzy while walking her dog and thinks she passed out on the couch. Transition of care: patient was not received from another setting of care. Onset of symptoms was September 22, 2019. Risk Assessment: Do you want to hurt yourself or someone else? Patient reports no desire to harm self or others. Initial Sepsis Screen: Does the patient meet any 2 criteria? No. Patient's initial sepsis screen is negative. Does the patient have a suspected source of infection? No. Patient's initial sepsis screen is negative. Care prior to arrival: None. 14:27 Method Of Arrival: Ambulatory iw 14:27 Acuity: LUZMARIA 3 iw Triage Assessment: 14:35 General: Appears in no apparent distress. comfortable, Behavior is cooperative, bp appropriate for age, anxious. Pain: Complains of pain in head. EENT: No deficits noted. Neuro: Reports dizziness, headache. Cardiovascular: No deficits noted. Respiratory: No deficits noted. GI: No signs and/or symptoms were reported involving the gastrointestinal system. : No signs and/or symptoms were reported regarding the genitourinary system. Derm: No deficits noted. Musculoskeletal: No deficits noted. 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: 14:35 LMP N/A - Hysterectomy iw Historical: - Allergies: 14:34 Augmentin; iw 14:34 BENZOYL PEROXIDE; iw 14:34 Cleocin; iw 14:34 Codeine; iw - Home Meds: 14:34 alprazolam 0.5 mg Oral tab 1 tab 3 times per day [Active]; emgality monthly injections iw [Active]; escitalopram oxalate 10 mg Oral tab 1 tab once daily [Active]; folic acid 1 mg Oral tab 1 tab once daily [Active]; magnesium oxide 400 mg Oral tab [Active]; methotrexate sodium 20 mg Oral tab 1 tab once wkly [Active]; montelukast 10 mg Oral tab 1 tab once daily [Active]; nadolol 40 mg Oral tab [Active]; rosuvastatin 10 mg Oral tab 1 tab once daily [Active]; Synthroid 125 mcg Oral tab 1 tab once daily [Active]; Trulicity 0.75 mg/0.5 mL subcutaneous pnij 0.5 mL once wkly [Active]; Vyvanse 40 mg Oral cap 1 cap once daily [Active]; - PMHx: 14:34 Arthritis; Diabetes - NIDDM; Hyperlipidemia; Hypothyroidism; Migraines; iw - PSHx: 14:34 Cholecystectomy; Tubal ligation; abdominal surgery; Hysterectomy; Uterine ablation; iw - Immunization history:: Adult Immunizations up to date. - Coronavirus screen:: The patient has NOT traveled to [place] in the past 14 days. Proceed with normal triage process as indicated. - Social history:: Smoking status: Patient/guardian denies using tobacco, the patient reports quitting approximately 14 years ago. - Ebola Screening: : Patient negative for fever greater than or equal to 101.5 degrees Fahrenheit, and additional compatible Ebola Virus Disease symptoms Patient denies exposure to infectious person Patient denies travel to an Ebola-affected area in the 21 days before illness onset No symptoms or risks identified at this time. Screenin:35 Abuse screen: Denies threats or abuse. Denies injuries from another. Nutritional bp screening: No deficits noted. Tuberculosis screening: No symptoms or risk factors identified. Fall Risk None identified. Assessment: 14:35 General: SEE TRIAGE NOTE. bp 14:57 Reassessment: PT TO CT. NO NEURO DEFICITS NOTED, NO S/S ACUTE DISTRESS. bp 15:58 Reassessment: ALL CURRENT ORDERS COMPLETE. NO S/S ACUTE DISTRESS. bp 17:30 Reassessment: PT D/C HOME AMBULATORY WITH FAMILY, DX WITH MIGRAINE. bp Vital Signs: 14:35 BP 125 / 73; Pulse 79; Resp 16; Temp 97.3; Pulse Ox 97% on R/A; Weight 95.25 kg; Height iw 5 ft. 6 in. (167.64 cm); Pain 9/10; 14:42 BP 118 / 73; Pulse 70; Resp 16; Pulse Ox 99% on R/A; mh5 15:58 BP 112 / 72; Pulse 58; Resp 15; Pulse Ox 100% ; bp 17:00 BP 126 / 81; Pulse 67; Resp 17; Temp 98; Pulse Ox 100% ; bp 14:35 Body Mass Index 33.89 (95.25 kg, 167.64 cm) ED Course: 13:43 Patient arrived in ED. rg4 14:30 Triage completed. iw 14:32 Alessandro Joel MD is Attending Physician. tw4 14:35 Arm band placed on. iw 14:43 Patient has correct armband on for positive identification. Bed in low position. Call 5 light in reach. Pulse ox on. NIBP on. 14:51 [place] Rey, [place] is Primary Nurse. bp 14:55 Inserted saline lock: 22 gauge in right antecubital area, using aseptic technique. 5 17:30 No provider procedures requiring assistance completed. IV discontinued, intact, bp bleeding controlled, No redness/swelling at site. Pressure dressing applied. Administered Medications: 15:00 Drug: TORadol 30 mg Route: IVP; Site: right antecubital; bp 17:03 Follow up: Response: Pain is decreased bp 15:00 Drug: Zofran 4 mg Route: IVP; Site: right antecubital; bp 17:04 Follow up: Response: Pain is decreased bp 15:00 Drug: NS 0.9% 1000 ml Route: IV; Rate: 1 bolus; Site: right antecubital; bp 17:36 Follow up: IV Status: Completed infusion; IV Intake: 1000ml bp 17:03 Drug: morphine 2 mg Route: IVP; Site: right forearm; bp 17:06 Follow up: Response: Pain is decreased bp 17:25 Drug: Zofran 4 mg Route: IVP; Site: right forearm; bp 17:25 Follow up: Response: No adverse reaction; Nausea is decreased bp Intake: 17:36 IV: 1000ml; Total: 1000ml. bp Outcome: 17:01 Discharge ordered by . tw4 17:32 Discharged to home ambulatory, with family. bp 17:32 Condition: stable 17:32 Discharge instructions given to patient, Instructed on discharge instructions, follow up and referral plans. medication usage, Demonstrated understanding of instructions, follow-up care, medications, Prescriptions given X 3. 17:37 Patient left the ED. bp Signatures: Irene Bernabe RN RN dEith Ponce 4 Kristen Weber [facility] Houston Rey, [place] RN bp Alessandro Joel, MD RIVERA tw4
--- NOTE | 2019-09-23 17:03 | EDPHYS ---
Physician Documentation [facility] Name: Niki Martino Age: 44 yrs Sex: Female : 1975 Arrival Date: 09/23/2019 Time: 13:43 Bed 7 Private MD: ED Physician Alessandro Joel HPI: 09/23 14:47 This 44 yrs old Female presents to ER via Ambulatory with complaints of tw4 Dizziness, Facial Pain. 14:47 The patient presents with dizziness. Onset: The symptoms/episode began/occurred today. tw4 Context: occurred at home. Modifying factors: The symptoms are alleviated by nothing, the symptoms are aggravated by nothing. Associated signs and symptoms: The patient has no apparent associated signs or symptoms. Severity of symptoms: At their worst the symptoms were moderate in the emergency department the symptoms are unchanged. The patient has not experienced similar symptoms in the past. 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 N/A - Hysterectomy iw Historical: - Allergies: 14:34 Augmentin; iw 14:34 BENZOYL PEROXIDE; iw 14:34 Cleocin; iw 14:34 Codeine; iw - Home Meds: 14:34 alprazolam 0.5 mg Oral tab 1 tab 3 times per day [Active]; emgality monthly injections iw [Active]; escitalopram oxalate 10 mg Oral tab 1 tab once daily [Active]; folic acid 1 mg Oral tab 1 tab once daily [Active]; magnesium oxide 400 mg Oral tab [Active]; methotrexate sodium 20 mg Oral tab 1 tab once wkly [Active]; montelukast 10 mg Oral tab 1 tab once daily [Active]; nadolol 40 mg Oral tab [Active]; rosuvastatin 10 mg Oral tab 1 tab once daily [Active]; Synthroid 125 mcg Oral tab 1 tab once daily [Active]; Trulicity 0.75 mg/0.5 mL subcutaneous pnij 0.5 mL once wkly [Active]; Vyvanse 40 mg Oral cap 1 cap once daily [Active]; - PMHx: 14:34 Arthritis; Diabetes - NIDDM; Hyperlipidemia; Hypothyroidism; Migraines; iw - PSHx: 14:34 Cholecystectomy; Tubal ligation; abdominal surgery; Hysterectomy; Uterine ablation; iw - Immunization history:: Adult Immunizations up to date. - Coronavirus screen:: The patient has NOT traveled to [place] in the past 14 days. Proceed with normal triage process as indicated. - Social history:: Smoking status: Patient/guardian denies using tobacco, the patient reports quitting approximately 14 years ago. - Ebola Screening: : Patient negative for fever greater than or equal to 101.5 degrees Fahrenheit, and additional compatible Ebola Virus Disease symptoms Patient denies exposure to infectious person Patient denies travel to an Ebola-affected area in the 21 days before illness onset No symptoms or risks identified at this time. ROS: 14:47 Constitutional: Negative for fever, chills, and weight loss, Eyes: Negative for injury, tw4 pain, redness, and discharge, Cardiovascular: Negative for chest pain, palpitations, and edema, Respiratory: Negative for shortness of breath, cough, wheezing, and pleuritic chest pain, Abdomen/GI: Negative for abdominal pain, nausea, vomiting, diarrhea, and constipation, Back: Negative for injury and pain, MS/Extremity: Negative for injury and deformity, Skin: Negative for injury, rash, and discoloration. 14:47 Neuro: Positive for dizziness, Negative for altered mental status, gait disturbance, headache, hearing loss, numbness, seizure activity, speech changes, syncope, tinnitus, tremor. Exam: 14:47 Constitutional: This is a well developed, well nourished patient who is awake, alert, tw4 and in no acute distress. Head/Face: Normocephalic, atraumatic. Chest/axilla: Normal chest wall appearance and motion. Nontender with no deformity. No lesions are appreciated. Cardiovascular: Regular rate and rhythm with a normal S1 and S2. No gallops, murmurs, or rubs. Normal PMI, no JVD. No pulse deficits. Respiratory: Lungs have equal breath sounds bilaterally, clear to auscultation and percussion. No rales, rhonchi or wheezes noted. No increased work of breathing, no retractions or nasal flaring. Abdomen/GI: Soft, non-tender, with normal bowel sounds. No distension or tympany. No guarding or rebound. No evidence of tenderness throughout. Back: No spinal tenderness. No costovertebral tenderness. Full range of motion. MS/ Extremity: Pulses equal, no cyanosis. Neurovascular intact. Full, normal range of motion. Vital Signs: 14:35 BP 125 / 73; Pulse 79; Resp 16; Temp 97.3; Pulse Ox 97% on R/A; Weight 95.25 kg; Height iw 5 ft. 6 in. (167.64 cm); Pain 9/10; 14:42 BP 118 / 73; Pulse 70; Resp 16; Pulse Ox 99% on R/A; mh5 15:58 BP 112 / 72; Pulse 58; Resp 15; Pulse Ox 100% ; bp 17:00 BP 126 / 81; Pulse 67; Resp 17; Temp 98; Pulse Ox 100% ; bp 14:35 Body Mass Index 33.89 (95.25 kg, 167.64 cm) iw MDM: 14:32 Patient medically screened. tw4 18:52 Differential diagnosis: generalized weakness, idiopathic dizziness, near-syncope, TIA, tw4 vertigo. Data reviewed: vital signs, nurses notes. Data interpreted: Pulse oximetry: Interpretation: normal. Counseling: I had a detailed discussion with the patient and/or guardian regarding: the historical points, exam findings, and any diagnostic results supporting the discharge/admit diagnosis, radiology results. Medication response: morphine relieved the patient's pain. Symptoms have resolved, Toradol relieved patient's pain. The symptoms have resolved. Special discussion: I discussed with the patient/guardian in detail that at this point there is no indication for admission to the hospital. It is understood, however, that if the symptoms persist or worsen the patient needs to return immediately for re-evaluation. 09/23 14:47 Order name: CT Head Brain wo Cont tw4 09/23 16:27 Order name: CT EDMS 09/23 14:56 Order name: Saline Lock; Complete Time: 14:56 [facility] Administered Medications: 15:00 Drug: TORadol 30 mg Route: IVP; Site: right antecubital; bp 17:03 Follow up: Response: Pain is decreased bp 15:00 Drug: Zofran 4 mg Route: IVP; Site: right antecubital; bp 17:04 Follow up: Response: Pain is decreased bp 15:00 Drug: NS 0.9% 1000 ml Route: IV; Rate: 1 bolus; Site: right antecubital; bp 17:36 Follow up: IV Status: Completed infusion; IV Intake: 1000ml bp 17:03 Drug: morphine 2 mg Route: IVP; Site: right forearm; bp 17:06 Follow up: Response: Pain is decreased bp 17:25 Drug: Zofran 4 mg Route: IVP; Site: right forearm; bp 17:25 Follow up: Response: No adverse reaction; Nausea is decreased bp Disposition: 09/23/19 17:01 Discharged to Home. Impression: Migraine with aura, intractable, without status migrainosus. - Condition is Stable. - Discharge Instructions: Migraine Headache, Recurrent Migraine Headache. - Prescriptions for Fiorinal 50- 325-40 mg Oral Capsule - take 1 capsule by ORAL route every 4 hours As needed - not to exceed 6 capsules per day; 20 capsule. Ibuprofen 800 mg Oral Tablet - take 1 tablet by ORAL route every 8 hours As needed take with food; 30 tablet. Zofran 4 mg Oral Tablet - take 1 tablet by ORAL route every 12 hours As needed; 6 tablet. - Medication Reconciliation Form, Thank You Letter, Antibiotic Education, Prescription Opioid Use form. - Follow up: Private Physician; When: Upon discharge from the Emergency Department; Reason: If symptoms return, Recheck today's complaints, Continuance of care, Re-evaluation by your physician. - Problem is new. - Symptoms have improved. Signatures: Dispatcher [employer] EDMS Irene Bernabe, RN RN Kristen Hudson [facility] [place] Rey RN RN Alessandro Piedra MD MD tw4 Corrections: (The following items were deleted from the chart) 17:37 17:01 09/23/2019 17:01 Discharged to Home. Impression: Migraine with aura, intractable, bp without status migrainosus. Condition is Stable. Forms are Medication Reconciliation Form, Thank You Letter, Antibiotic Education, Prescription Opioid Use. Follow up: Private Physician; When: Upon discharge from the Emergency Department; Reason: If symptoms return, Recheck today's complaints, Continuance of care, Re-evaluation by your physician. Problem is new. Symptoms have improved. tw4
[2019-09-23 19:10] VITALS: BP 118/73; O2SAT 99
== END 2019-09-23 17:37 | disposition home or self-care (01) ==
LOC: ER 13:42
DX: G43.119 Migraine with aura, intractable, without status migrainosus (principal); E78.5 Hyperlipidemia, unspecified; E11.9 Type 2 diabetes mellitus without complications; E03.9 Hypothyroidism, unspecified; Z79.4 Long term (current) use of insulin; Z88.1 Allergy status to other antibiotic agents; Z88.5 Allergy status to narcotic agent; Z88.8 Allergy status to other drugs, medicaments and biological substances
CPT/HCPCS: 96361; 70450; 96375; 96374; 99284; J2270; J7030; J2405 ×2

== ENCOUNTER 2019-09-23 18:36 | Emergency (ER) | payer OTHER ==
--- OUTSIDE RECORDS SUMMARY | 2019-09-23 18:39 | XMS REPORT ---
:1975 [facility] Address [address] [place] [address] Care Team Providers Name Role Phone Unavailable Unavailable Unavailable Problems This patient has no known problems. Allergies, Adverse Reactions, Alerts This patient has no known allergies or adverse reactions. Medications This patient has no known medications.
[2019-09-23] MEDS ORDERED: ONDANSETRON 4 MG/2 ML VIAL ONE (19:54)
[2019-09-23] MEDS ORDERED: NA CHLORIDE 0.9% 1,000 ML ONE (19:54)
[2019-09-23] MEDS ORDERED: FENTANYL CITR 100 MCG/2 ML ONE (19:54)
[2019-09-23] MEDS ORDERED: FAMOTIDINE 20 MG/2 ML VIAL IV ONE (19:54)
[2019-09-23 20:17] LABS: Absolute Lymphocytes (CBC) 2.8 K/uL (0.7-4.9); Basophils % 0.9 % (0-1.3); Hematocrit 40.8 % (36.0-45.0); Lymphocytes % 25.1 % (15.3-44.8); MPV 7.7 fL (7.6-11.3); RBC Red Blood Cell Count 4.17 M/uL (3.86-4.86)
[2019-09-23 20:24] LABS: Protime INR 1.08
[2019-09-23 20:42] LABS: ALT/SGPT 104 U/L (12-78); AST/SGOT 179 U/L (15-37); Albumin 3.8 g/dL (3.4-5.0); Alkaline Phosphatase 76 U/L (45-117); BUN Blood Urea Nitrogen 16 mg/dL (7-18); Bicarbonate 28 mmol/L (21-32); Bilirubin Direct 0.4 mg/dL (0-0.2); Bilirubin Total 1.2 mg/dL (0.2-1.0); Glucose Level 82 mg/dL (74-106); Lipase 89 U/L (73-393); Magnesium 2.2 mg/dL (1.8-2.4); NT PRO-BNP 59 pg/mL (<125); Potassium 3.8 mmol/L (3.5-5.1); Protein, Total 7.3 g/dL (6.4-8.2); Sodium Level 140 mmol/L (136-145); Troponin (Emerg Dept Use Only) < 0.02 ng/mL (0.0-0.045)
--- NOTE | 2019-09-23 20:55 | RAD REPORT ---
EXAM DESCRIPTION: RAD - Chest Single View - 09/23/2019 8:02 pm CLINICAL HISTORY: ABDOMINAL DISTENTION COMPARISON: Chest Single View dated 09/14/2019; Chest Single View dated 06/20/2019 TECHNIQUE: AP portable chest image was obtained 09/23/2019 8:02 pm . FINDINGS: Lungs are clear. Heart and vasculature are normal. No measurable pleural effusion and no p neumothorax. No acute bony abnormality seen. No acute aortic findings suspected. IMPRESSION: No acute cardiopulmonary process. No significant change from comparison.
[2019-09-23 22:22] LABS: Urine Blood NEGATIVE (NEG); Urine Glucose NEGATIVE (NEG); Urine Protein NEGATIVE (NEG); Urine Specific Gravity 1.015 (1.005-1.030)
--- NOTE | 2019-09-23 22:25 | EDPHYS ---
Physician Documentation [facility] Name: Niki Martino Age: 44 yrs Sex: Female : 1975 Arrival Date: 09/23/2019 Time: 18:39 Bed 26 Private MD: Humza Schneider HPI: 09/23 19:38 This 44 yrs old Female presents to ER via Wheelchair with complaints of brittni Abdominal Pain, Back Pain. 19:38 The patient presents with pain that is acute, with no known mechanism of injury. brittni 19:39 The patient presents with abdominal pain in the upper abdomen, in the left upper brittni quadrant. Onset: The symptoms/episode began/occurred today. The symptoms do not radiate. Associated signs and symptoms: none. The symptoms are described as crampy. Modifying factors: The symptoms are alleviated by nothing, the symptoms are aggravated by alcohol. Severity of pain: At its worst the pain was moderate in the emergency department the pain is unchanged. The patient has not experienced similar symptoms in the past. Historical: - Allergies: 18:47 Augmentin; ca1 18:47 BENZOYL PEROXIDE; ca1 18:47 Cleocin; ca1 18:47 Codeine; ca1 - Home Meds: 19:00 alprazolam 0.5 mg Oral tab 1 tab 3 times per day [Active]; emgality monthly injections ca1 [Active]; escitalopram oxalate 10 mg Oral tab 1 tab once daily [Active]; folic acid 1 mg Oral tab 1 tab once daily [Active]; magnesium oxide 400 mg Oral tab [Active]; methotrexate sodium 20 mg Oral tab 1 tab once wkly [Active]; montelukast 10 mg Oral tab 1 tab once daily [Active]; nadolol 40 mg Oral tab [Active]; rosuvastatin 10 mg Oral tab 1 tab once daily [Active]; Synthroid 125 mcg Oral tab 1 tab once daily [Active]; Trulicity 0.75 mg/0.5 mL subcutaneous pnij 0.5 mL once wkly [Active]; Vyvanse 40 mg Oral cap 1 cap once daily [Active]; - PMHx: 18:47 Arthritis; Diabetes - NIDDM; Hyperlipidemia; Migraines; Hypothyroidism; ca1 - PSHx: 18:47 Cholecystectomy; Tubal ligation; abdominal surgery; Uterine ablation; Hysterectomy; ca1 - Immunization history:: Adult Immunizations up to date. - Coronavirus screen:: The patient has NOT traveled to [place] in the past 14 days. The patient has NOT had contact with known/suspected case of Coronavirus?. - Social history:: Smoking status: Patient denies any tobacco usage or history of. - Ebola Screening: : Patient negative for fever greater than or equal to 101.5 degrees Fahrenheit, and additional compatible Ebola Virus Disease symptoms Patient denies exposure to infectious person Patient denies travel to an Ebola-affected area in the 21 days before illness onset No symptoms or risks identified at this time. ROS: 19:39 Constitutional: Negative for fever, chills, and weight loss, Eyes: Negative for injury, brittni pain, redness, and discharge, ENT: Negative for injury, pain, and discharge, Neck: Negative for injury, pain, and swelling, Cardiovascular: Negative for chest pain, palpitations, and edema, Respiratory: Negative for shortness of breath, cough, wheezing, and pleuritic chest pain, Back: Negative for injury and pain, : Negative for injury, bleeding, discharge, and swelling, MS/Extremity: Negative for injury and deformity, Skin: Negative for injury, rash, and discoloration, Neuro: Negative for headache, weakness, numbness, tingling, and seizure, Psych: Negative for depression, anxiety, suicide ideation, homicidal ideation, and hallucinations, Allergy/Immunology: Negative for hives, rash, and allergies, Endocrine: Negative for neck swelling, polydipsia, polyuria, polyphagia, and marked weight changes, Hematologic/Lymphatic: Negative for swollen nodes, abnormal bleeding, and unusual bruising. 19:39 Abdomen/GI: Positive for abdominal pain, of the epigastric area and left upper quadrant. Exam: 19:39 Constitutional: This is a well developed, well nourished patient who is awake, alert, brittni and in no acute distress. Head/Face: Normocephalic, atraumatic. Eyes: Pupils equal round and reactive to light, extra-ocular motions intact. Lids and lashes normal. Conjunctiva and sclera are non-icteric and not injected. Cornea within normal limits. Periorbital areas with no swelling, redness, or edema. ENT: Nares patent. No nasal discharge, no septal abnormalities noted. Tympanic membranes are normal and external auditory canals are clear. Oropharynx with no redness, swelling, or masses, exudates, or evidence of obstruction, uvula midline. Mucous membranes moist. Neck: Trachea midline, no thyromegaly or masses palpated, and no cervical lymphadenopathy. Supple, full range of motion without nuchal rigidity, or vertebral point tenderness. No Meningismus. Chest/axilla: Normal chest wall appearance and motion. Nontender with no deformity. No lesions are appreciated. Cardiovascular: Regular rate and rhythm with a normal S1 and S2. No gallops, murmurs, or rubs. Normal PMI, no JVD. No pulse deficits. Respiratory: Lungs have equal breath sounds bilaterally, clear to auscultation and percussion. No rales, rhonchi or wheezes noted. No increased work of breathing, no retractions or nasal flaring. Back: No spinal tenderness. No costovertebral tenderness. Full range of motion. Pelvic Exam: Normal external genitalia. Speculum exam with closed cervical os, no discharge or bleeding noted. Bimanual exam with normal adnexa, no adnexal or cervical motion tenderness. Normal uterus. Female : Normal external genitalia. Skin: Warm, dry with normal turgor. Normal color with no rashes, no lesions, and no evidence of cellulitis. MS/ Extremity: Pulses equal, no cyanosis. Neurovascular intact. Full, normal range of motion. Neuro: Awake and alert, GCS 15, oriented to person, place, time, and situation. Cranial nerves II-XII grossly intact. Motor strength 5/5 in all extremities. Sensory grossly intact. Cerebellar exam normal. Normal gait. Psych: Awake, alert, with orientation to person, place and time. Behavior, mood, and affect are within normal limits. 19:39 Abdomen/GI: Inspection: abdomen appears normal, Bowel sounds: normal, Palpation: mild abdominal tenderness, moderate abdominal tenderness, in the epigastric area and left upper quadrant, Liver: no appreciated palpable abnormalities, Hernia: not appreciated. Vital Signs: 18:47 BP 139 / 79; Pulse 67; Resp 16 S; Temp 97.3(TE); Pulse Ox 100% on R/A; Weight 95.25 kg ca1 (R); Height 5 ft. 6 in. (167.64 cm) (R); 20:10 BP 136 / 74; Pulse 66; Resp 16; Pulse Ox 99% on R/A; Pain 8/10; ls4 21:00 BP 128 / 70; Pulse 64; Resp 14; Pulse Ox 99% on R/A; Pain 5/10; ls4 22:00 BP 132 / 74; Pulse 67; Resp 14; Pulse Ox 99% on R/A; Pain 4/10; ls4 18:47 Body Mass Index 33.89 (95.25 kg, 167.64 cm) ca1 NIH Stroke Scale Scores: 20:19 NIHSS Score: 0 brittni MDM: 19:11 Patient medically screened. [facility] 19:42 Data reviewed: vital signs, nurses notes, lab test result(s), EKG, radiologic studies, [facility] CT scan, plain films. 09/23 19:37 Order name: Basic Metabolic Panel; Complete Time: 21:11 [facility] 09/23 19:37 Order name: CBC with Diff; Complete Time: 21:11 [facility] 09/23 19:37 Order name: LFT's; Complete Time: 21:11 [facility] 09/23 19:37 Order name: Magnesium; Complete Time: 21:11 [facility] 09/23 19:37 Order name: NT PRO-BNP; Complete Time: 21:11 [facility] 09/23 19:37 Order name: PT-INR; Complete Time: 21:11 [facility] 09/23 19:37 Order name: Troponin (emerg Dept Use Only); Complete Time: 21:11 [facility] 09/23 19:37 Order name: XRAY Chest (1 view); Complete Time: 21:11 [facility] 09/23 19:37 Order name: Lipase; Complete Time: 21:11 [facility] 09/23 19:38 Order name: CT Abd/Pelvis - PO and IV Contrast [facility] 09/23 22:14 Order name: Urine Dipstick--Ancillary (enter results) [facility] 09/23 22:14 Order name: Urine --Ancillary (enter results) [facility] 09/23 19:37 Order name: EKG; Complete Time: 19:40 [facility] 09/23 19:37 Order name: Cardiac monitoring; Complete Time: 19:47 [facility] 09/23 19:37 Order name: EKG - Nurse/Tech; Complete Time: 19:47 [facility] 09/23 19:37 Order name: IV Saline Lock; Complete Time: 19:47 [facility] 09/23 19:37 Order name: Labs collected and sent; Complete Time: 19:47 [facility] 02/18 19:37 Order name: O2 Per Protocol; Complete Time: 19:47 brittni 09/23 19:37 Order name: O2 Sat Monitoring; Complete Time: 19:47 brittni Administered Medications: 20:10 Drug: NS 0.9% 1000 ml Route: IV; Rate: 1 bolus; Site: right antecubital; ls4 21:10 Follow up: IV Status: Completed infusion; IV Intake: 1000ml ls4 20:10 Drug: Pepcid 20 mg Route: IVP; Site: right antecubital; ls4 20:30 Follow up: Response: No adverse reaction ls4 20:10 Drug: fentaNYL (PF) 25 mcg Route: IVP; Site: right antecubital; ls4 20:40 Follow up: Response: No adverse reaction; Marked relief of symptoms ls4 20:51 Follow up: Response: No adverse reaction; Marked relief of symptoms ls4 20:10 Drug: Zofran 4 mg Route: IVP; Site: right antecubital; ls4 20:51 Follow up: Response: No adverse reaction; Marked relief of symptoms ls4 22:20 Drug: fentaNYL (PF) 25 mcg Route: IVP; Site: right antecubital; ls4 23:00 Follow up: Response: No adverse reaction; Pain is decreased ls4 Disposition: 09/23/19 22:24 Discharged to Home. Impression: Abdominal tenderness, Gastritis, unspecified, Type 2 diabetes mellitus. - Condition is Stable. - Discharge Instructions: Abdominal Pain, Adult, Type 2 Diabetes Mellitus, Diagnosis, Adult, Nausea and Vomiting, Adult, Abdominal Pain, Adult, [id number], Type 2 Diabetes Mellitus, Diagnosis, Adult, [id number]. - Prescriptions for Bentyl 20 mg Oral Tablet - take 1 tablet by ORAL route every 6 hours As needed; 20 tablet. Pepcid 20 mg Oral Tablet - take 1 tablet by ORAL route every 12 hours for 10 days; 20 tablet. Zofran 4 mg Oral Tablet - take 1 tablet by ORAL route every 12 hours As needed; 20 tablet. - Work release form, Medication Reconciliation Form, Thank You Letter, Antibiotic Education, Prescription Opioid Use form. - Follow up: Private Physician; When: 2 - 3 days; Reason: Recheck today's complaints, Continuance of care, Re-evaluation by your physician. Follow up: Liliana Strange; When: 2 - 3 days; Reason: Recheck today's complaints, Continuance of care, Re-evaluation by your physician. - Problem is new. - Symptoms have improved. NIH Stroke Scale - NIH Stroke Score Date: 09/23/2019 Time: 20:19 Total Score = 0 1a. Level of Consciousness (LOC) - 0(Alert) 1b. Level of Consciousness (LOC) (Year \T\ Age) - 0(Both) 1c. LOC Commands (Open \T\ Closes Eyes/[employer]) - 0(Both) 2. Best Gaze (Lateral Gaze Paresis) - 0(Normal) 3. Visual Field Loss - 0(No visual loss) 4. Facial Palsy - 0(Normal) 5a. Left Arm: Motor (10-second hold) - 0(No drift) 5b. Right Arm: Motor (10-second hold) - 0(No drift) 6a. Left Leg: Motor (5-second hold - always test supine) - 0(No drift) 6b. Right Leg: Motor (5-second hold - always test supine) - 0(No drift) 7. Limb Ataxia (finger/nose \T\ heel/villegas - test with eyes open) - 0(Absent) 8. Sensory Loss (pinprick arms/legs/face) - 0(Normal) 9. Best Language: Aphasia (description/naming/reading) - 0(No aphasia) 10. Dysarthria (speech clarity - read or repeat words) - 0(Normal) 11. Extinction and Inattention (visual/tactile/auditory/spatial/personal) - 0(No abnormality) Initials: brittni Signatures: Dispatcher [employer] EDMS Humza Hill MD MD cha Stewart, Lisa, RN RN ls4 Monica Beatty RN RN ca1 Natasha Marks RN RN vc Corrections: (The following items were deleted from the chart) 23:24 22:24 09/23/2019 22:24 Discharged to Home. Impression: Abdominal tenderness; vc Gastritis, unspecified; Type 2 diabetes mellitus. Condition is Stable. Discharge Instructions: Abdominal Pain, Adult, Type 2 Diabetes Mellitus, Diagnosis, Adult, Nausea and Vomiting, Adult, Abdominal Pain, Adult, [id number], Type 2 Diabetes Mellitus, Diagnosis, Adult, [id number]. Prescriptions for Bentyl 20 mg Oral Tablet - take 1 tablet by ORAL route every 6 hours As needed; 20 tablet, Pepcid 20 mg Oral Tablet - take 1 tablet by ORAL route every 12 hours for 10 days; 20 tablet, Zofran 4 mg Oral Tablet - take 1 tablet by ORAL route every 12 hours As needed; 20 tablet. and Forms are Medication Reconciliation Form, Thank You Letter, Antibiotic Education, Prescription Opioid Use. Follow up: Private Physician; When: 2 - 3 days; Reason: Recheck today's complaints, Continuance of care, Re-evaluation by your physician. Follow up: Liliana Strange; When: 2 - 3 days; Reason: Recheck today's complaints, Continuance of care, Re-evaluation by your physician. Problem is new. Symptoms have improved. brittni
--- NOTE | 2019-09-23 22:25 | ER ---
Nurse's Notes [facility] Name: Niki Martino Age: 44 yrs Sex: Female : 1975 Arrival Date: 09/23/2019 Time: 18:39 Bed 26 Private MD: Diagnosis: Abdominal tenderness;Gastritis, unspecified;Type 2 diabetes mellitus Presentation: 09/23 18:45 Presenting complaint: states: She was here early today for Migraines. We were ca1 on our way home, when she started c/o of abdominal pain and back. Reports nausea, denies vomiting. Transition of care: patient was not received from another setting of care. Onset of symptoms was September 23, 2019. Risk Assessment: Do you want to hurt yourself or someone else? Patient reports no desire to harm self or others. Initial Sepsis Screen: Does the patient meet any 2 criteria? No. Patient's initial sepsis screen is negative. Does the patient have a suspected source of infection? No. Patient's initial sepsis screen is negative. Care prior to arrival: None. 18:45 Method Of Arrival: Wheelchair ca1 18:45 Acuity: LUZMARIA 3 ca1 Triage Assessment: 19:50 General: Appears uncomfortable, Behavior is anxious, fussy. Pain: Complains of pain in ls4 left upper quadrant and epigastric area Pain currently is 10 out of 10 on a pain scale. 19:50 Neuro: No deficits noted. Cardiovascular: No deficits noted. Respiratory: No deficits ls4 noted. GI: Abdomen is obese, Bowel sounds present X 4 quads. Abd is soft Abdomen is tender to palpation in left upper quadrant. : No deficits noted. Derm: No deficits noted. Musculoskeletal: No deficits noted. Historical: - Allergies: 18:47 Augmentin; ca1 18:47 BENZOYL PEROXIDE; ca1 18:47 Cleocin; ca1 18:47 Codeine; ca1 - Home Meds: 19:00 alprazolam 0.5 mg Oral tab 1 tab 3 times per day [Active]; emgality monthly injections ca1 [Active]; escitalopram oxalate 10 mg Oral tab 1 tab once daily [Active]; folic acid 1 mg Oral tab 1 tab once daily [Active]; magnesium oxide 400 mg Oral tab [Active]; methotrexate sodium 20 mg Oral tab 1 tab once wkly [Active]; montelukast 10 mg Oral tab 1 tab once daily [Active]; nadolol 40 mg Oral tab [Active]; rosuvastatin 10 mg Oral tab 1 tab once daily [Active]; Synthroid 125 mcg Oral tab 1 tab once daily [Active]; Trulicity 0.75 mg/0.5 mL subcutaneous pnij 0.5 mL once wkly [Active]; Vyvanse 40 mg Oral cap 1 cap once daily [Active]; - PMHx: 18:47 Arthritis; Diabetes - NIDDM; Hyperlipidemia; Migraines; Hypothyroidism; ca1 - PSHx: 18:47 Cholecystectomy; Tubal ligation; abdominal surgery; Uterine ablation; Hysterectomy; ca1 - Immunization history:: Adult Immunizations up to date. - Coronavirus screen:: The patient has NOT traveled to [place] in the past 14 days. The patient has NOT had contact with known/suspected case of Coronavirus?. - Social history:: Smoking status: Patient denies any tobacco usage or history of. - Ebola Screening: : Patient negative for fever greater than or equal to 101.5 degrees Fahrenheit, and additional compatible Ebola Virus Disease symptoms Patient denies exposure to infectious person Patient denies travel to an Ebola-affected area in the 21 days before illness onset No symptoms or risks identified at this time. Screenin:57 Abuse screen: Denies threats or abuse. Denies injuries from another. Nutritional ls4 screening: No deficits noted. Tuberculosis screening: No symptoms or risk factors identified. Fall Risk None identified. Assessment: 20:00 Reassessment: Patient appears in no apparent distress at this time. Patient and/or ls4 family updated on plan of care and expected duration. Pain level reassessed. Patient is alert, oriented x 3, equal unlabored respirations, skin warm/dry/pink. 21:11 Reassessment: Patient to CT via stretcher. vc 22:00 Reassessment: Patient appears in no apparent distress at this time. Patient and/or ls4 family updated on plan of care and expected duration. Pain level reassessed. Patient is alert, oriented x 3, equal unlabored respirations, skin warm/dry/pink. Vital Signs: 18:47 BP 139 / 79; Pulse 67; Resp 16 S; Temp 97.3(TE); Pulse Ox 100% on R/A; Weight 95.25 kg ca1 (R); Height 5 ft. 6 in. (167.64 cm) (R); 20:10 BP 136 / 74; Pulse 66; Resp 16; Pulse Ox 99% on R/A; Pain 8/10; ls4 21:00 BP 128 / 70; Pulse 64; Resp 14; Pulse Ox 99% on R/A; Pain 5/10; ls4 22:00 BP 132 / 74; Pulse 67; Resp 14; Pulse Ox 99% on R/A; Pain 4/10; ls4 18:47 Body Mass Index 33.89 (95.25 kg, 167.64 cm) ca1 NIH Stroke Scale Scores: 20:19 NIHSS Score: 0 brittni ED Course: 18:39 Patient arrived in ED. rg4 18:46 Triage completed. ca1 18:47 Arm band placed on right wrist. ca1 18:57 Natasha Schwarz, CY is Primary Nurse. ls4 18:57 Patient has correct armband on for positive identification. Bed in low position. Call ls4 light in reach. Side rails up X 1. Warm blanket given. 18:57 No provider procedures requiring assistance completed. ls4 19:11 Humza Hill MD is Attending Physician. brittni 20:08 XRAY Chest (1 view) In Process Unspecified. EDMS 21:31 CT Abd/Pelvis - PO and IV Contrast In Process Unspecified. EDMS 22:21 Urine --Ancillary (enter results) Sent. ls4 22:21 Urine Dipstick--Ancillary (enter results) Sent. ls4 22:24 Liliana Strange MD is Referral Physician. brittni 22:30 IV discontinued, intact, bleeding controlled, No redness/swelling at site. Pressure ls4 dressing applied. Administered Medications: 20:10 Drug: NS 0.9% 1000 ml Route: IV; Rate: 1 bolus; Site: right antecubital; ls4 21:10 Follow up: IV Status: Completed infusion; IV Intake: 1000ml ls4 20:10 Drug: Pepcid 20 mg Route: IVP; Site: right antecubital; ls4 20:30 Follow up: Response: No adverse reaction ls4 20:10 Drug: fentaNYL (PF) 25 mcg Route: IVP; Site: right antecubital; ls4 20:40 Follow up: Response: No adverse reaction; Marked relief of symptoms ls4 20:51 Follow up: Response: No adverse reaction; Marked relief of symptoms ls4 20:10 Drug: Zofran 4 mg Route: IVP; Site: right antecubital; ls4 20:51 Follow up: Response: No adverse reaction; Marked relief of symptoms ls4 22:20 Drug: fentaNYL (PF) 25 mcg Route: IVP; Site: right antecubital; ls4 23:00 Follow up: Response: No adverse reaction; Pain is decreased ls4 Intake: 21:10 IV: 1000ml; Total: 1000ml. ls4 Outcome: 22:24 Discharge ordered by MD. elkins 23:20 Discharged to home ambulatory. ls4 23:20 Condition: good 23:20 Discharge instructions given to patient, family, Instructed on discharge instructions, ls4 follow up and referral plans. medication usage, Demonstrated understanding of instructions, follow-up care, medications, Prescriptions given X 3. 23:24 Patient left the ED. vc NIH Stroke Scale - NIH Stroke Score Date: 09/23/2019 Time: 20:19 Total Score = 0 1a. Level of Consciousness (LOC) - 0(Alert) 1b. Level of Consciousness (LOC) (Year \T\ Age) - 0(Both) 1c. LOC Commands (Open \T\ Closes Eyes/Emr Implementation Specialist) - 0(Both) 2. Best Gaze (Lateral Gaze Paresis) - 0(Normal) 3. Visual Field Loss - 0(No visual loss) 4. Facial Palsy - 0(Normal) 5a. Left Arm: Motor (10-second hold) - 0(No drift) 5b. Right Arm: Motor (10-second hold) - 0(No drift) 6a. Left Leg: Motor (5-second hold - always test supine) - 0(No drift) 6b. Right Leg: Motor (5-second hold - always test supine) - 0(No drift) 7. Limb Ataxia (finger/nose \T\ heel/villegas - test with eyes open) - 0(Absent) 8. Sensory Loss (pinprick arms/legs/face) - 0(Normal) 9. Best Language: Aphasia (description/naming/reading) - 0(No aphasia) 10. Dysarthria (speech clarity - read or repeat words) - 0(Normal) 11. Extinction and Inattention (visual/tactile/auditory/spatial/personal) - 0(No abnormality) Initials: brittni Signatures: Dispatcher [employer] Humza Dunbar MD MD cha Garcia, Edith wesley4 Natasha Schwarz, RN RN ls4 Monica Beatty, RN RN ca1 Natasha Marks, RN RN vc
[2019-09-24 00:36] VITALS: BP 139/79; TEMP 97.3; O2SAT 100
--- NOTE | 2019-09-24 07:50 | EKG ---
Test Date: 2019-09-23 Test Time: 20:09:14 Assistant Professor Of Religion: LAWRENCE MEASUREMENT RESULTS: Intervals: Rate: 68 SC: 168 QRSD: 88 QT: 388 QTc: 412 [place]: P: 64 SC: 168 QRS: 53 T: 52 INTERPRETIVE STATEMENTS: Normal sinus rhythm Normal ECG Compared to ECG 09/14/2019 16:27:06 No significant changes Electronically Signed On 09-24-19 07:49:56 SLIP COVER SEWER by Kenny Philip
--- NOTE | 2019-09-24 11:41 | RAD REPORT ---
EXAM DESCRIPTION: CT Abdomen and Pelvis With Intravenous Contrast CLINICAL HISTORY: The patient is 44 years old and is Female; ABD PAIN TECHNIQUE: Axial computed tomography images of the abdomen and pelvis with intravenous contrast. S agittal and coronal reformatted images were created and reviewed. This CT exam was performed using one or more of the following dose reduction techniques: automated exposure control, adjustment of t he mA and/or kV according to patient size, and/or use of iterative reconstruction technique. Oral contrast was administered. Delayed images were obtained. DLP: 2331 mGy*cm COMPARISON: None. FINDINGS: LUNG BASES: Lung bases are clear. HEART: Visualized heart is normal. ABDOMEN: LIVER: Unremarkable. No mass. GALLBLADDER AND BILE DUCTS: Prior cholecystectomy with intrahepatic ductal dilatation. PANCREAS: Unremarkable. No mass. No ductal dilation. SPLEEN: Unremarkable. No splenomegaly. ADRENALS: Unremarkable. No mass. KIDNEYS AND URETERS: Unremarkable. No solid mass. No hydronephrosis. STOMACH AND BOWEL: Enteric contrast in the stomach and small bowel. No obstruction or perforation. Mild to moderate stool burden. No mucosal thickening. PELVIS: APPENDIX: The appendix is seen and is within normal limits. BLADDER: Bladder is decompressed. REPRODUCTIVE: Prior hysterectomy. ABDOMEN and PELVIS: INTRAPERITONEAL SPACE: Unremarkable. No free air. No significant fluid collection. BONES/JOINTS: No acute fracture. No dislocation. SOFT TISSUES: Fat-containing umbilical hernia. VASCULATURE: Unremarkable. No abdominal aortic aneurysm. LYMPH NODES: Unremarkable. No enlarged lymph nodes. IMPRESSION: 1. No acute abdominal or pelvic abnormality. 2. Fat-containing umbilical hernia. 3. Prior cholecystectomy with ductal dilatation. Electronically signed by: [place] Flynn DO 09/23/2019 10:03 PM DIGITAL ASSET MANAGER Due to temporary technical issues with the PACS/Fluency reporting system, reports are being signed by the in house radiologist as a courtesy to ensure prompt reporting. The interpreting radiologist is f ully responsible for the content of the report.
== END 2019-09-23 23:24 | disposition home or self-care (01) ==
LOC: ER 18:36
DX: K29.70 Gastritis, unspecified, without bleeding (principal); E11.9 Type 2 diabetes mellitus without complications; E03.9 Hypothyroidism, unspecified; E78.5 Hyperlipidemia, unspecified; Z88.1 Allergy status to other antibiotic agents; Z88.5 Allergy status to narcotic agent; Z88.8 Allergy status to other drugs, medicaments and biological substances
CPT/HCPCS: 96361; 93005; 85025; 80048; 36415; 83735; 81025; 85610; 80076; 81003; 84484; 83690; 83880; 74177; 71045; 96375; 96374; 99284; Q9967; J3010; J7030; J2405

== ENCOUNTER 2020-09-30 21:11 | Emergency (ER) | payer OTHER ==
--- OUTSIDE RECORDS SUMMARY | 2020-09-30 21:14 | XMS REPORT | Continuity of Care Document ---
:1975 Author Organization [facility] t Address [address] [place] [address] Care Team Providers Name Role Phone Silverio Sahu MD Primary Care Physician Parker Paiz MD Attending Clinician Problems Condition Condition Condition Status Onset Resolution Last Treating Co mments Source Name Details Category Date Date Treatment Clinician Date Vitamin D Vitamin D Disease Active [facility]j [facility]on deficiency deficiency 03-14 [place] thodi disease disease 00:00: st 00 Hip Hip Disease Active [place] bursitis bursitis 03-14 [facility] i 00:00: st 00 Spondyloar Spondyloar Disease Active 2015-08 [place] thritis thritis 08-16 [facility] 00:00: st 00 Hypothyroi Hypothyroi Disease Active [place] dism dism 01-26 [facility] 00:00: st 00 Migraines Migraines Disease Active Rj ston 01-26 [facility] 00:00: st 00 Fatigue Fatigue Disease Active [place] [facility] Visual Visual Disease Active [place] impairment impairment [facility] st Menstrual Menstrual Disease Active [facility] ston disorder disorder [facility] i st Allergies, Adverse Reactions, Alerts Allergy Allergy Status Severity Reaction(s) Onset Inactive Treating Comm ents Source Name Type Date Date Clinician Amoxicil Propensi Active [place] pri[place] ty to 01-26 [facility] Clavulan adverse 00:00: st ate reaction 00 s to drug Clindamy Propensi Active [place] [facility] ty to 01-26 [facility] adverse 00:00: st reaction 00 s to drug Codeine Propensi Active [place] ty to 01-26 [facility] adverse 00:00: st reaction 00 s to drug Family History Family Member Diagnosis Comments Start Date Stop Date Source Maternal Breast cancer [place] grandmother Yarsani Maternal Hyperlipidemia [place] grandmother Yarsani Maternal Stroke [place] grandmother Yarsani Natural mother Lung cancer [place] Yarsani Natural mother Other [place] Yarsani Natural mother Thyroid disease [place] Paternal aunt Alzheimer's disease [place] Paternal aunt Diabetes [place] Yarsani Paternal Heart disease [place] Yarsani Natural sister Heart attack [place]arsani Natural father Multiple sclerosis [place] Yarsani Natural father Other [place] Yarsani Maternal aunt Hyperlipidemia [place] Yarsani Maternal aunt Hypertension [place] Yarsani Maternal aunt Psoriasis [place] Yarsani Social History Social Habit Start Date Stop Date Quantity Comments Source History of Current smoker [facility] tobacco use Sex Assigned At [facility] Tobacco use and 2016-06-16 2016-06-16 Never used [facility] exposure 00:00:00 00:00:00 Alcohol intake 2016-06-16 2016-06-16 Current drinker [place] [facility] 00:00:00 00:00:00 of alcohol (finding) Alcohol Comment 2016-06-16 2016-06-16 month [facility] 00:00:00 00:00:00 Smoking Status Start Date Stop Date Source Former smoker 2016-06-16 00:00:00 2016-06-16 00:00:00 [place] Yarsani Medications Ordered Filled Start Stop Current Ordering Indication Dosage Frequency Signature Comments Components Source Medication Medication Date Date Medication? Clinician (SIG) Name Name meloxicam Yes TAKE 1 Jeff n (MOBIC) 15 1-25 TABLET BY Meth star mg tablet 00:00: MOUTH st 00 DAILY cholecalcif 2016-08 Yes 2000U QD Take 2,000 [facility] martha, 2-19 Units by [facility] vitamin D3, 14:23: mouth st (VITAMIN 28 daily. D3) 2,000 unit capsule capsule B complex 2016-08 Yes QD Take by Martine on with 2-19 mouth [facility] C#20-folic 14:23: daily. st acid 1 mg 28 capsule rosuvastati 2016-08 Yes Jeff n n (CRESTOR) 1-29 [facility] 10 MG 00:00: st tablet 00 levothyroxi 2016-08 Yes [place] 09-01 [facility] (SYNTHROID, 00:00: st LEVOXYL) 00 125 mcg tablet nadolol Yes 40mg QD Take 40 mg [place] ([place]GARD) 01-12 by mouth [facility] i 40 MG 00:00: daily. st tablet 00 Procedures This patient has no known procedures. Plan of Care Planned Activity Planned Date Details Comments Source Future Scheduled 2020-03-06 INFLUENZA VACCINE [place] [facility] Test 00:00:00 [code = INFLUENZA VACCINE] Future Scheduled 1994 Screening for [facility] Test 00:00:00 malignant neoplasm of cervix (procedure) [code = 380791058] Future Scheduled 1989 COVID-19 VACCINE (1 [place] [facility] Test 00:00:00 of 2) [code = COVID-19 VACCINE (1 of 2)] Encounters Start End Encounter Admission Attending Care Care Encounter Source Date/Time Date/Time Type Type Clinicians Facility Department ID 2020-09-08 2020-09-08 Office [facility] [id number] 12:48:29 16:15:07 Visit uNeoa AMBULATOR [id number] [place] [id number] 2020-04-07 2020-04-07 Office [facility] [id number] 13:05:16 13:35:16 Visit uNeoa AMBULATOR [id number] [place] [id number] 2019-09-02 2019-09-02 Office [facility] [id number] 10:34:12 11:59:44 Visit u, P[place] AMBULATOR [id number] [place] [id number] Results This patient has no known results.
[2020-10-01] MEDS ORDERED: MECLIZINE HCL 12.5 MG TAB ONE (01:28)
[2020-10-01] MEDS ORDERED: NA CHLORIDE 0.9% 1,000 ML ONE (01:29)
[2020-10-01] MEDS ORDERED: ONDANSETRON 4 MG/2 ML VIAL ONE (01:29)
[2020-10-01 02:06] LABS: Absolute Lymphocytes (CBC) 2.7 K/uL (0.7-4.9); Basophils % 0.9 % (0-1.3); Hematocrit 39.6 % (36.0-45.0); Lymphocytes % 29.3 % (15.3-44.8); MPV 8.4 fL (7.6-11.3); RBC Red Blood Cell Count 4.06 M/uL (3.86-4.86)
[2020-10-01 02:19] LABS: ALT/SGPT 53 U/L (12-78); AST/SGOT 28 U/L (15-37); Albumin 3.7 g/dL (3.4-5.0); Alkaline Phosphatase 59 U/L (45-117); BUN Blood Urea Nitrogen 12 mg/dL (7-18); Bicarbonate 30 mmol/L (21-32); Bilirubin Direct 0.1 mg/dL (0-0.2); Bilirubin Total 0.5 mg/dL (0.2-1.0); Glucose Level 135 mg/dL (74-106); Magnesium 2.1 mg/dL (1.8-2.4); NT PRO-BNP 36 pg/mL (<125); Potassium 3.8 mmol/L (3.5-5.1); Protein, Total 7.3 g/dL (6.4-8.2); Sodium Level 141 mmol/L (136-145); Troponin (Emerg Dept Use Only) < 0.02 ng/mL (0.0-0.045)
[2020-10-01 03:36] LABS: Urine Blood NEGATIVE (NEG); Urine Glucose NEGATIVE (NEG); Urine Protein NEGATIVE (NEG); Urine Specific Gravity >1.030 (1.005-1.030); Urine pH 5.5 (5.0-7.0)
--- NOTE | 2020-10-01 04:27 | EDPHYS ---
Physician Documentation [facility] Name: Niki Martino Age: 45 yrs Sex: Female : 1975 Arrival Date: 09/30/2020 Time: 21:14 Bed 5 Private MD: MAKENZIE Physician Humza Hill HPI: 10/01 00:59 This 45 yrs old Female presents to ER via Wheelchair with complaints of brittni Dizziness. 00:59 The patient presents with dizziness. Onset: The symptoms/episode began/occurred 2 brittni day(s) ago. Context: occurred at home. Modifying factors: The symptoms are alleviated by closing eyes, holding head still, the symptoms are aggravated by movement of head. Associated signs and symptoms: The patient has no apparent associated signs or symptoms. Severity of symptoms: At their worst the symptoms were mild in the emergency department the symptoms are unchanged. Patient's baseline: Neuro: alert and fully oriented. The patient has experienced similar episodes in the past, a few times. 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:29 LMP N/A - Hysterectomy ca1 Historical: - Allergies: 21:29 Augmentin; ca1 21:29 BENZOYL PEROXIDE; ca1 21:29 Cleocin; ca1 21:29 Codeine; ca1 - Home Meds: 21:29 Synthroid 88 mcg oral tab 1 tab once daily [Active]; amitriptyline 25 mg Oral tab 1 tab ca1 once daily [Active]; montelukast 10 mg Oral tab 1 tab once daily [Active]; propranolol 40 mg Oral tab [Active]; Lunesta 3 mg oral tab [Active]; meloxicam 15 mg oral tab [Active]; methotrexate sodium 20 mg Oral tab 1 tab once wkly [Active]; emgality monthly injections [Active]; Trulicity 0.75 mg/0.5 mL subcutaneous pnij 0.5 mL once wkly [Active]; rosuvastatin 10 mg Oral tab 1 tab once daily [Active]; folic acid 1 mg Oral tab 1 tab once daily [Active]; Reanna 40 mg [Active]; alprazolam 0.5 mg Oral tab 1 tab nightly [Active]; Adderall XR 30 mg Oral cp24 [Active]; Viibryd 20 mg oral tab [Active]; - PMHx: 21:29 Arthritis; Diabetes - NIDDM; Hyperlipidemia; Hypothyroidism; Migraines; ca1 - Immunization history:: Flu vaccine is up to date. - Social history:: Smoking status: Patient/guardian denies using tobacco, the patient reports quitting approximately 15 years ago. - Family history:: not pertinent. ROS: 10/01 00:59 Constitutional: Negative for fever, chills, and weight loss, Eyes: Negative for injury, brittni pain, redness, and discharge, ENT: Negative for injury, pain, and discharge, Neck: Negative for injury, pain, and swelling, Cardiovascular: Negative for chest pain, palpitations, and edema, Respiratory: Negative for shortness of breath, cough, wheezing, and pleuritic chest pain, Abdomen/GI: Negative for abdominal pain, nausea, vomiting, diarrhea, and constipation, Back: Negative for injury and pain, : Negative for injury, bleeding, discharge, and swelling, MS/Extremity: Negative for injury and deformity, Skin: Negative for injury, rash, and discoloration, Psych: Negative for depression, anxiety, suicide ideation, homicidal ideation, and hallucinations, Allergy/Immunology: Negative for hives, rash, and allergies, Endocrine: Negative for neck swelling, polydipsia, polyuria, polyphagia, and marked weight changes, Hematologic/Lymphatic: Negative for swollen nodes, abnormal bleeding, and unusual bruising. Neuro: Positive for dizziness. Exam: 00:59 Constitutional: This is a well developed, well nourished patient who is awake, alert, brittni and in no acute distress. Head/Face: Normocephalic, atraumatic. Eyes: Pupils equal round and reactive to light, extra-ocular motions intact. Lids and lashes normal. Conjunctiva and sclera are non-icteric and not injected. Cornea within normal limits. Periorbital areas with no swelling, redness, or edema. ENT: Nares patent. No nasal discharge, no septal abnormalities noted. Tympanic membranes are normal and external auditory canals are clear. Oropharynx with no redness, swelling, or masses, exudates, or evidence of obstruction, uvula midline. Mucous membranes moist. Neck: Trachea midline, no thyromegaly or masses palpated, and no cervical lymphadenopathy. Supple, full range of motion without nuchal rigidity, or vertebral point tenderness. No Meningismus. Chest/axilla: Normal chest wall appearance and motion. Nontender with no deformity. No lesions are appreciated. Cardiovascular: Regular rate and rhythm with a normal S1 and S2. No gallops, murmurs, or rubs. Normal PMI, no JVD. No pulse deficits. Respiratory: Lungs have equal breath sounds bilaterally, clear to auscultation and percussion. No rales, rhonchi or wheezes noted. No increased work of breathing, no retractions or nasal flaring. Abdomen/GI: Soft, non-tender, with normal bowel sounds. No distension or tympany. No guarding or rebound. No evidence of tenderness throughout. Back: No spinal tenderness. No costovertebral tenderness. Full range of motion. Skin: Warm, dry with normal turgor. Normal color with no rashes, no lesions, and no evidence of cellulitis. MS/ Extremity: Pulses equal, no cyanosis. Neurovascular intact. Full, normal range of motion. Neuro: Awake and alert, GCS 15, oriented to person, place, time, and situation. Cranial nerves II-XII grossly intact. Motor strength 5/5 in all extremities. Sensory grossly intact. Cerebellar exam normal. Normal gait. Psych: Awake, alert, with orientation to person, place and time. Behavior, mood, and affect are within normal limits. 02:16 ECG was reviewed by the Attending Physician. [facility] Vital Signs: 09/30 21:23 BP 140 / 91; Pulse 70; Resp 16 S; Temp 97.8(TE); Pulse Ox 97% on R/A; Weight 115.21 kg ca1 (R); Height 5 ft. 6 in. (167.64 cm) (R); Pain 4/10; 10/01 02:20 BP 143 / 89; Pulse 64; Resp 16; Pulse Ox 97% on R/A; ea 03:20 BP 135 / 80; Pulse 69; Resp 16; Pulse Ox 98% ; rr5 04:26 BP 141 / 93; Pulse 60; Resp 18; Pulse Ox 98% ; ea 09/30 21:23 Body Mass Index 41.00 (115.21 kg, 167.64 cm) ca1 MDM: 00:43 Patient medically screened. brittni 01:05 Differential diagnosis: cardiac arrhythmia, CVA, generalized weakness, head injury, brittni hypovolemia, idiopathic dizziness, TIA, vertigo. Data reviewed: vital signs, nurses notes, lab test result(s), EKG, radiologic studies, CT scan, plain films. Data interpreted: web development consultant: rate is 70 beats/min, rhythm is regular, Pulse oximetry: on room air is 97 %. Test interpretation: by ED physician or midlevel provider: ECG, plain radiologic studies. Counseling: I had a detailed discussion with the patient and/or guardian regarding: the historical points, exam findings, and any diagnostic results supporting the discharge/admit diagnosis, lab results, radiology results, the need for outpatient follow up, for definitive care, a family practitioner, a neurologist. 10/01 00:58 Order name: Basic Metabolic Panel [facility] 10/01 00:58 Order name: CBC with Diff; Complete Time: 02:16 [facility] 10/01 00:58 Order name: LFT's; Complete Time: 04:24 [facility] 10/01 00:58 Order name: Magnesium; Complete Time: 04:24 [facility] 10/01 00:58 Order name: NT PRO-BNP; Complete Time: 04:24 [facility] 10/01 00:58 Order name: PT-INR; Complete Time: 02:16 [facility] 10/01 00:58 Order name: Troponin (emerg Dept Use Only); Complete Time: 04:24 [facility] 10/01 00:58 Order name: XRAY Chest (1 view) [facility] 10/01 00:58 Order name: CT Head Brain wo Cont [facility] 10/01 00:58 Order name: Urine Culture [facility] 10/01 00:58 Order name: Basic Metabolic Panel; Complete Time: 04:24 EDMS 10/01 02:17 Order name: Urine --Ancillary (enter results); Complete Time: 04:24 tt3 10/01 02:17 Order name: Urine Dipstick--Ancillary (enter results); Complete Time: 04:24 tt3 09/30 21:30 Order name: EKG; Complete Time: 21:35 [facility] 09/30 21:30 Order name: EKG - Nurse/Tech; Complete Time: 21:36 [facility] 10/01 00:58 Order name: Cardiac monitoring; Complete Time: :25 [facility] 10/01 00:58 Order name: IV Saline Lock; Complete Time: :25 [facility] 10/01 00:58 Order name: Labs collected and sent; Complete Time: :25 brittni 10/01 00:58 Order name: O2 Per Protocol; Complete Time: : [facility] 10/01 00:58 Order name: O2 Sat Monitoring; Complete Time: : brittni 10/01 00:58 Order name: Urine Dipstick-Ancillary (obtain specimen); Complete Time: :16 brittni 10/01 00:58 Order name: Urine Test (obtain specimen); Complete Time: :16 brittni EC: Rate is 68 beats/min. Rhythm is regular. QRS [place] is Normal. AL interval is normal. QRS brittni interval is normal. QT interval is normal. No Q waves. T waves are Normal. No ST changes noted. Clinical impression: NSR w/ Non-specific ST/T Changes and No evidence of ischemia. Interpreted by me. Reviewed by me. Administered Medications: 01:24 Drug: NS 0.9% 1000 ml Route: IV; Rate: 1 bolus; Site: right antecubital; rr5 02:40 Follow up: Response: No adverse reaction; IV Status: Completed infusion; IV Intake: rr5 1000ml 01:24 Drug: Zofran (Ondansetron) 4 mg Route: IVP; Site: right antecubital; rr5 02:20 Follow up: Response: No adverse reaction rr5 01:25 Drug: Meclizine 50 mg Route: PO; rr5 02:25 Follow up: Response: No adverse reaction rr5 Disposition: 10/01/20 04:26 Discharged to Home. Impression: Dizziness and giddiness, Type 2 diabetes mellitus, Vertiginous syndromes in diseases classified elsewhere, unspecified ear. - Condition is Stable. - Discharge Instructions: Benign Positional Vertigo, Dizziness, Vertigo, Vertigo, [id number], Aspirin and Your Heart, Dizziness, [id number]. - Prescriptions for Meclizine 25 mg Oral Tablet - take 1 tablet by ORAL route every 8 hours As needed; 30 tablet. Zofran 4 mg Oral Tablet - take 1 tablet by ORAL route every 12 hours As needed; 20 tablet. - Medication Reconciliation Form, Thank You Letter, Antibiotic Education, Prescription Opioid Use, Work release form form. - Follow up: Private Physician; When: 2 - 3 days; Reason: Recheck today's complaints, Continuance of care, Re-evaluation by your physician. Follow up: Adrian Quick; When: 2 - 3 days; Reason: Recheck today's complaints, Continuance of care, Re-evaluation by your physician. - Problem is new. - Symptoms have improved. Signatures: Dispatcher [employer] Humza Dunbar MD MD cha Roque, Raymond, RN RN rr5 Monica Beatty RN RN ca1 Corrections: (The following items were deleted from the chart) 04:40 04:26 10/01/2020 04:26 Discharged to Home. Impression: Dizziness and giddiness; Type 2 rr5 diabetes mellitus; Vertiginous syndromes in diseases classified elsewhere, unspecified ear. Condition is Stable. Discharge Instructions: Benign Positional Vertigo, Dizziness, Vertigo, Vertigo, [id number], Aspirin and Your Heart, Dizziness, [id number]. Prescriptions for Meclizine 25 mg Oral Tablet - take 1 tablet by ORAL route every 8 hours As needed; 30 tablet, Zofran 4 mg Oral Tablet - take 1 tablet by ORAL route every 12 hours As needed; 20 tablet. and Forms are Medication Reconciliation Form, Thank You Letter, Antibiotic Education, Prescription Opioid Use. Follow up: Private Physician; When: 2 - 3 days; Reason: Recheck today's complaints, Continuance of care, Re-evaluation by your physician. Follow up: Adrian Quick; When: 2 - 3 days; Reason: Recheck today's complaints, Continuance of care, Re-evaluation by your physician. Problem is new. Symptoms have improved. brittni
--- NOTE | 2020-10-01 04:27 | ER ---
Nurse's Notes [facility] Name: Niki Martino Age: 45 yrs Sex: Female : 1975 Arrival Date: 09/30/2020 Time: 21:14 Bed 5 Private MD: Diagnosis: Dizziness and giddiness;Type 2 diabetes mellitus;Vertiginous syndromes in diseases classified elsewhere, unspecified ear Presentation: 09/30 21:23 Chief complaint: Patient states: Dizziness x 3 days. BP high 147/97. Am dizzy enough to ca1 make me stumble and get really nauseous. Upper abdominal pain x 3 weeks, scheduled for Sunday. Coronavirus screen: Client denies travel out of the [place] in the last 14 days. At this time, the client does not indicate any symptoms associated with coronavirus-19. Ebola Screen: Patient negative for fever greater than or equal to 101.5 degrees Fahrenheit, and additional compatible Ebola Virus Disease symptoms Patient denies exposure to infectious person. Patient denies travel to an Ebola-affected area in the 21 days before illness onset. No symptoms or risks identified at this time. Initial Sepsis Screen: Does the patient meet any 2 criteria? No. Patient's initial sepsis screen is negative. Does the patient have a suspected source of infection? No. Patient's initial sepsis screen is negative. Risk Assessment: Do you want to hurt yourself or someone else? Patient reports no desire to harm self or others. Onset of symptoms was September 30, 2020. 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 LMP N/A - Hysterectomy ca1 Historical: - Allergies: 21:29 Augmentin; ca1 21:29 BENZOYL PEROXIDE; ca1 21:29 Cleocin; ca1 21:29 Codeine; ca1 - Home Meds: 21:29 Synthroid 88 mcg oral tab 1 tab once daily [Active]; amitriptyline 25 mg Oral tab 1 tab ca1 once daily [Active]; montelukast 10 mg Oral tab 1 tab once daily [Active]; propranolol 40 mg Oral tab [Active]; Lunesta 3 mg oral tab [Active]; meloxicam 15 mg oral tab [Active]; methotrexate sodium 20 mg Oral tab 1 tab once wkly [Active]; emgality monthly injections [Active]; Trulicity 0.75 mg/0.5 mL subcutaneous pnij 0.5 mL once wkly [Active]; rosuvastatin 10 mg Oral tab 1 tab once daily [Active]; folic acid 1 mg Oral tab 1 tab once daily [Active]; Reanna 40 mg [Active]; alprazolam 0.5 mg Oral tab 1 tab nightly [Active]; Adderall XR 30 mg Oral cp24 [Active]; Viibryd 20 mg oral tab [Active]; - PMHx: 21:29 Arthritis; Diabetes - NIDDM; Hyperlipidemia; Hypothyroidism; Migraines; ca1 - Immunization history:: Flu vaccine is up to date. - Social history:: Smoking status: Patient/guardian denies using tobacco, the patient reports quitting approximately 15 years ago. - Family history:: not pertinent. Screenin/26 01:26 Abuse screen: Denies threats or abuse. Denies injuries from another. Nutritional rr5 screening: No deficits noted. Tuberculosis screening: No symptoms or risk factors identified. Fall Risk IV access (20 points). Total Hawkins Fall Scale indicates No Risk (0-24 pts). Assessment: 01:25 General: Appears in no apparent distress. comfortable, Behavior is calm, cooperative, rr5 appropriate for age. Pain: Complains of pain in head. Neuro: Level of Consciousness is awake, alert, obeys commands, Oriented to person, place, time, situation, Reports dizziness, headache. Cardiovascular: Capillary refill < 3 seconds Patient's skin is warm and dry. Respiratory: Airway is patent Respiratory effort is even, unlabored, Respiratory pattern is regular, symmetrical. GI: No signs and/or symptoms were reported involving the gastrointestinal system. : No signs and/or symptoms were reported regarding the genitourinary system. EENT: No signs and/or symptoms were reported regarding the EENT system. Derm: Skin is intact, is healthy with good turgor, Skin temperature is warm. Musculoskeletal: Circulation, motion, and sensation intact. Capillary refill < 3 seconds. 02:18 Reassessment: Patient and/or family updated on plan of care and expected duration. Pain ea level reassessed. Patient is alert, oriented x 3, equal unlabored respirations, skin warm/dry/pink. Awaiting on lab results. 03:30 Reassessment: Patient appears in no apparent distress at this time. Patient is alert, rr5 oriented x 3, equal unlabored respirations, skin warm/dry/pink. resting eyes closed breathing spontaneously at room air Patient states symptoms have improved. 04:39 Reassessment: Patient appears in no apparent distress at this time. Patient is alert, rr5 oriented x 3, equal unlabored respirations, skin warm/dry/pink. discharge instruction given and explained without complaints made Patient states feeling better. Patient states symptoms have improved. Vital Signs: 09/30 21:23 BP 140 / 91; Pulse 70; Resp 16 S; Temp 97.8(TE); Pulse Ox 97% on R/A; Weight 115.21 kg ca1 (R); Height 5 ft. 6 in. (167.64 cm) (R); Pain 4/10; 10/01 02:20 BP 143 / 89; Pulse 64; Resp 16; Pulse Ox 97% on R/A; ea 03:20 BP 135 / 80; Pulse 69; Resp 16; Pulse Ox 98% ; rr5 04:26 BP 141 / 93; Pulse 60; Resp 18; Pulse Ox 98% ; ea 09/30 21:23 Body Mass Index 41.00 (115.21 kg, 167.64 cm) ca1 ED Course: 09/30 21:14 Patient arrived in ED. am4 21:25 Triage completed. ca1 21:29 Arm band placed on right wrist. ca1 23:48 Amarjit Pedro, RN is Primary Nurse. rr5 10/01 00:43 Humza Hill MD is Attending Physician. brittni 01:10 EKG done, by ED staff, reviewed by Humza Hill MD. rr5 01:12 XRAY Chest (1 view) In Process Unspecified. EDMS 01:19 CT Head Brain wo Cont In Process Unspecified. EDMS 01:21 Inserted saline lock: 20 gauge in right antecubital area, using aseptic technique. ds4 Blood collected. 01:26 Patient has correct armband on for positive identification. Bed in low position. Call rr5 light in reach. Side rails up X2. handbag stitcher on. Pulse ox on. NIBP on. 04:26 Adrian Quick MD is Referral Physician. brittni 04:39 No provider procedures requiring assistance completed. IV discontinued, intact, rr5 bleeding controlled, No redness/swelling at site. Pressure dressing applied. Administered Medications: 01:24 Drug: NS 0.9% 1000 ml Route: IV; Rate: 1 bolus; Site: right antecubital; rr5 02:40 Follow up: Response: No adverse reaction; IV Status: Completed infusion; IV Intake: rr5 1000ml 01:24 Drug: Zofran (Ondansetron) 4 mg Route: IVP; Site: right antecubital; rr5 02:20 Follow up: Response: No adverse reaction rr5 01:25 Drug: Meclizine 50 mg Route: PO; rr5 02:25 Follow up: Response: No adverse reaction rr5 Intake: 02:40 IV: 1000ml; Total: 1000ml. rr5 Outcome: 04:26 Discharge ordered by MD. elkins 04:39 Discharged to home via wheelchair. rr5 04:39 Condition: stable 04:39 Discharge instructions given to patient, Instructed on discharge instructions, the need for admit, medication usage, Demonstrated understanding of instructions, follow-up care, medications, Prescriptions given X 2. 04:40 Patient left the ED. rr5 Signatures: Dispatcher [employer] EDHumza Dejesus MD MD cha Swanson, Donovan ds4 Yris Cast RN Amarjit Burns ea, RN RN rr5 Monica Beatty RN RN ca1 Martinez, Ashley am4
--- NOTE | 2020-10-01 07:56 | RAD REPORT ---
EXAM DESCRIPTION: RAD - Chest Single View - 10/01/2020 1:12 am CLINICAL HISTORY: COUGH COMPARISON: September 2019 TECHNIQUE: AP portable chest image was obtained 10/01/2020 1:12 am . FINDINGS: No focal lung parenchymal process. Portable technique and overlying breast soft tissue inc reases lung base density. Heart and vasculature are normal. No measurable pleural effusion and no pne umothorax. No acute bony abnormality seen. No acute aortic findings suspected. IMPRESSION: No acute cardiopulmonary process. No significant change from comparison study.
--- NOTE | 2020-10-01 11:05 | RAD REPORT ---
EXAM DESCRIPTION: CT - Head Brain Wo Cont - 10/01/2020 7:08 am CLINICAL HISTORY: 45 years Female DIZZINESS COMPARISON: September 23, 2019 TECHNIQUE: Images were obtained in axial, sagittal, and coronal planes. This exam was performed according to our departmental dose-optimization program which includes use of Automated Exposure Control, adjustment of the mA and/or kV according to patient size and/or use o f iterative reconstruction technique. FINDINGS: Ventricular system appears normal. No abnormal areas of increased attenuation seen. No extra-axial fluid collections noted. No evidence for skull fracture. Symmetric aeration mastoid air cells bilaterally. Unremarkable parana zechariah sinuses. IMPRESSION: No acute intracranial abnormality. No evidence for hemorrhage, mass lesion, or large acu te infarction. Electronically signed by: Bailey Bruno MD 10/01/2020 1:45 AM WOOD SCALER Due to temporary technical issues with the PACS/Fluency reporting system, reports are being signed by the in house radiologist without review as a courtesy to ensure prompt reporting. The interpreting r adiologist is fully responsible for the content of the report.
--- NOTE | 2020-10-01 14:10 | EKG ---
Test Date: 2020-09-30 Test Time: 21:35:23 Sharebroker: DEVIN MEASUREMENT RESULTS: Intervals: Rate: 68 ID: [id number] QRSD: 78 QT: 408 QTc: 433 [place]: P: 55 ID: [id number] QRS: 42 T: 47 INTERPRETIVE STATEMENTS: Normal sinus rhythm Junctional ST depression, probably normal Borderline ECG Compared to ECG 09/23/2019 20:09:14 ST (T wave) deviation now present Electronically Signed On 10-01-20 14:08:55 CARE MANAGEMENT SPECIALIST by Jordy Hdz
== END 2020-10-01 04:40 | disposition home or self-care (01) ==
LOC: ER 21:11
DX: R42 Dizziness and giddiness (principal); H82.9 Vertiginous syndromes in diseases classified elsewhere, unspecified ear; E11.9 Type 2 diabetes mellitus without complications; E03.9 Hypothyroidism, unspecified; E78.5 Hyperlipidemia, unspecified; Z88.1 Allergy status to other antibiotic agents; Z88.3 Allergy status to other anti-infective agents; Z88.5 Allergy status to narcotic agent; Z88.8 Allergy status to other drugs, medicaments and biological substances
CPT/HCPCS: 96361; 93005; 87088; 85025; 87086; 80048; 36415; 83735; 81025; 85610; 80076; 81003; 84484; 83880; 70450; 71045; 96374; 99285; J7030; J2405

== ENCOUNTER 2021-09-06 07:12 | Emergency (ER) | payer BC, OTHER ==
--- OUTSIDE RECORDS SUMMARY | 2021-09-06 07:15 | XMS REPORT | Continuity of Care Document ---
:1975 Author Organization [facility] t Address 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 Allergies, Adverse Reactions, Alerts Allergy Allergy Status Severity Reaction(s) Onset Inactive Treating Comm ents Source Name Type Date Date Clinician Amoxicil Propensi Active [facility] prieto-Pot ty to 20 College Clavulan adverse 00:00: of ate reaction 00 Medicin s to e drug Benzyl Propensi Active [facility] Benzoate ty to 4-20 College adverse 00:00: of reaction 00 Medicin s to e drug Clindamy Propensi Active [facility] suresh/Linc ty to 20 College omycin adverse 00:00: of reaction 00 Medicin s to e drug Codeine Propensi Active [facility] ty to 4-20 College adverse 00:00: of reaction 00 Medicin s to e drug Social History Social Habit Start Date Stop Date Quantity Comments Source History of Smoker [facility] tobacco use of Medicine Alcohol intake 2020-09-08 2020-09-08 Current drinker [facility] 00:00:00 00:00:00 of alcohol of Medicine (finding) Tobacco use and 2020-09-08 2020-09-08 Never used [facility] exposure 00:00:00 00:00:00 of Medicine Alcohol Comment 2017-11-23 2017-11-23 less than 1 a [facility] 00:00:00 00:00:00 week of Medicine Sex Ass[birth year] At [birth year] F [facility] llege 00:00:00 00:00:00 of Medicine Smoking Status Start Date Stop Date Source Former smoker 2020-09-08 00:00:00 2020-09-08 00:00:00 [facility] ol[facility] of Medicine Medications Ordered Filled Start Stop Current Ordering Indication Dosage Frequency Signature Comments Components Source Medication Medication Date Date Medication? Clinician (SIG) Name Name rosuvastati Yes 10mg Take 10 mg [facility] n (CRESTOR) 2-03 by mouth [place] 10 MG 19:20: daily. of tablet 04 Medicin e alprazolam Yes .5mg Take 0.5 [place] [facility] (XANAX) 0.5 2-03 mg by [place] MG tablet 19:20: mouth as of 04 needed. Medicin e Dulaglutide Yes Inject [facility] (TRULICITY) 2-03 into the [place] 0.75 19:20: skin. of MG/0.5ML 04 Medicin SOPN e montelukast Yes 10mg Take 10 mg [facility] (SINGULAIR) 2-03 by mouth [place] 10 MG 19:20: daily. of tablet 04 Medicin e escitalopra Yes 10mg Take 10 mg [facility] m (LEXAPRO) 2-03 by mouth [place] 10 MG 19:20: daily. of tablet 04 Medicin e Lisdexamfet Yes Take by ylor amine 2-03 mouth. [place] Dimesylate 19:20: of (VYVANSE) 04 Medicin 50 MG CAPS e Magnesium Yes Take by [facility] Oxide 2-03 mouth. [place] (MAGOX 400 19:20: of OR) 04 Medicin e buPROPion Yes 150mg Take 150 [place] [facility] (WELLBUTRIN 2-03 mg by [facility]) 19:20: mouth two of 150 MG SR 04 times Medicin tablet daily. e amphetamine Yes 10mg Take 10 mg [facility] -dextroamph 2-03 by mouth [place] etamine 19:20: daily. of (ADDERALL, 04 Medicin 10MG,) 10 e MG tablet FOLIC ACID Yes 2mg Take 2 mg [facility] OR 2-03 by mouth. [place] 19:20: of 04 Medicin e propranolol Yes 40mg Take 40 mg [facility] (INDERAL) 2-03 by mouth 3 [place] 40 MG 19:20: times of tablet 04 daily. Medicin e amobarbital Yes 500mg Inject 500 [facility] (AMYTAL 2-03 mg into College SODIUM) 500 19:20: the vein of MG 04 once. Medicin injection e meloxicam Yes [id number] 15mg Take 1 [place] [facility] (MOBIC) 15 1-12 Tablet by [place] MG tablet 00:00: mouth of 00 daily. Medicin e methotrexat Yes [id number] 15mg Take 6 [facility] e 1-12 Tablets by [place] (RHEUMATREX 00:00: mouth of ) 2.5 MG 00 every 7 Medicin tablet days. e buPROPion Yes 150mg Take 150 [place] [facility] (WELLBUTRIN 9-02 mg by [facility]) 18:33: mouth two of 150 MG SR 02 times Medicin tablet daily. e amphetamine Yes 10mg Take 10 mg [facility] -dextroamph 9-02 by mouth [place] etamine 18:33: daily. of (ADDERALL, 02 Medicin 10MG,) 10 e MG tablet FOLIC ACID Yes 2mg Take 2 mg [facility] OR 9-02 by mouth. [place] 18:33: of 02 Medicin e propranolol 2019-0 Yes 40mg Take 40 mg [facility] (INDERAL) 9-02 by mouth 3 [place] 40 MG 18:33: times of tablet 02 daily. Medicin e amobarbital 2020-0 Yes 500mg Inject 500 [facility] (AMYTAL - mg into College SODIUM) 500 18:33: the vein of MG 02 once. Medicin injection e rosuvastati 2020-0 Yes 10mg Take 10 mg [facility] n (CRESTOR) 04-07 by mouth [place] 10 MG 18:25: daily. of tablet 04 Medicin e alprazolam 2019-0 Yes .5mg Take 0.5 [place] [facility] (XANAX) 0.5 -02 mg by [place] MG tablet 18:25: mouth as of 04 needed. Medicin e Dulaglutide 0 Yes Inject [facility] (TRULICITY) 04-07 into the [place] 0.75 18:25: skin. of MG/0.5ML 04 Medicin SOPN e montelukast 2019-0 Yes 10mg Take 10 mg [facility] (SINGULAIR) 04-07 by mouth [place] 10 MG 18:25: daily. of tablet 04 Medicin e escitalopra 2019-0 Yes 10mg Take 10 mg [facility] m (LEXAPRO) 04-07 by mouth [place] 10 MG 18:25: daily. of tablet 04 Medicin e Lisdexamfet 2019-0 Yes Take by ylor amine 04-07 mouth. [place] Dimesylate 18:25: of (VYVANSE) 04 Medicin 50 MG CAPS e Adalimumab 2019-0 Yes [id number] 40mg Inject 40 [facility] 40 MG/0.4ML 9-02 mg into [facility] ge PNKT 00:00: the skin of 00 every 7 Medicin days. e methotrexat 2020-0 Yes [id number] 15mg Take 6 [facility] e - Tabs by [place] (RHEUMATREX 00:00: mouth of ) 2.5 MG 00 every 7 Medicin tablet days. e Adalimumab 2020-0 Yes [id number] 40mg Inject 40 [facility] 40 MG/0.4ML 9-02 mg into [facility] ge PNKT 00:00: the skin of 00 every 7 Medicin days. e methotrexat 2020-0 2020- No [id number] 20mg Take 8 [facility] e 6-29 - Tabs by [place] (RHEUMATREX 00:00: 00:00 mouth of ) 2.5 MG 00 :00 every 7 Medicin tablet days. e Diclofenac 2020-0 [id number] 1% Place 1 [facility] Sodium 1 % 5-22 Percent Colleg e GEL 00:00: onto the of 00 skin two Medicin times e daily. Diclofenac 2020-0 [id number] 1% Place 1 [facility] Sodium 1 % 5-22 Percent Colleg e GEL 00:00: onto the of 00 skin two Medicin times e daily. meloxicam 2020-0 Yes [id number] 15mg Take 1 Tab [facility] (MOBIC) 15 5-22 by mouth [facility]le [facility] MG tablet 00:00: daily. of 00 Medicin e Adalimumab 2020-0 2020- No 40mg Inject 40 [facility] 40 MG/0.4ML 3-24 09-02 mg into [place] PNKT 00:00: 00:00 the skin of 00 :00 every 14 Medicin days. e azithromyci 2020-0 Yes 250mg Take 1 Tab [facility] n 2-12 by mouth College (ZITHROMAX 00:00: daily. Day o f Z-CJ) 250 00 1- take 2 Medi suresh MG tablet pills once e a day , day 2-5 take 1 pill every day azithromyci 2020-0 Yes 250mg Take 1 Tab [facility] n 2-12 by mouth [facility] (ZITHROMAX 00:00: daily. Day o f Z-CJ) 250 00 1- take 2 Medi suresh MG tablet pills once e a day , day 2-5 take 1 pill every day Magnesium 2020-0 Yes Take by [facility] Oxide 1-28 mouth. College (MAGOX 400 16:55: of OR) 14 Medicin e rosuvastati 2020-0 Yes 10mg Take 10 mg [facility] n (CRESTOR) 1-28 by mouth [place] 10 MG 16:55: daily. of tablet 14 Medicin e alprazolam 2020-0 Yes .5mg Take 0.5 [place] [facility] (XANAX) 0.5 1-28 mg by [facility] MG tablet 16:55: mouth as of 14 needed. Medicin e Dulaglutide 2020-0 Yes Inject [facility] (TRULICITY) 1-28 into the [place] 0.75 16:55: skin. of MG/0.5ML 14 Medicin SOPN e montelukast 2020-0 Yes 10mg Take 10 mg [facility] (SINGULAIR) - by mouth [place] 10 MG 16:55: daily. of tablet 14 Medicin e escitalopra 2020-0 Yes 10mg Take 10 mg [facility] m (LEXAPRO) 09-02 by mouth [place] 10 MG 16:55: daily. of tablet 14 Medicin e Lisdexamfet 2020-0 Yes Take by [facility] amine 09-02 mouth. [place] Dimesylate 16:55: of (VYVANSE) 14 Medicin 50 MG CAPS e Magnesium 2020-0 Yes Take by [facility] Oxide 09-02 mouth. [place] (MAGOX 400 16:55: of OR) 14 Medicin e etanercept 2019-0 Yes 50mg Inject 50 [facility] (ENBREL 1-28 mg into [place] SURECLICK) 00:00: the skin of 50 MG/ML 00 every 7 Medicin injection days. e eszopiclone 2018-08 Yes 3mg Take 3 mg [facility] (LUNESTA) 3 1-11 by mouth [place] MG TABS 00:00: daily. of Medicin e eszopiclone 2018-08 Yes 3mg Take 3 mg [facility] (LUNESTA) 3 -11 by mouth [place] MG TABS 00:00: daily. of Medicin e eszopiclone 2018-08 Yes 3mg Take 3 mg [facility] (LUNESTA) 3 -11 by mouth [place] MG TABS 00:00: daily. of Medicin e EMGALITY 2019 Yes 120mg Inject 120 [facility] 120 MG/ML 9-24 mg into [place] SOAJ 00:00: the skin of 00 every 30 Medicin days. e EMGALITY Yes 120mg Inject 120 [facility] 120 MG/ML 9-24 mg into [place] SOAJ 00:00: the skin of 00 every 30 Medicin days. e EMGALITY Yes 120mg Inject 120 [facility] 120 MG/ML 9-24 mg into [place] SOAJ 00:00: the skin of 00 every 30 Medicin days. e methotrexat 2017- Yes 20mg Take 8 [facility] e 5-22 Tabs by [place] (RHEUMATREX 00:00: mouth of ) 2.5 MG 00 every 7 Medicin tablet days. e Indication s: 8 tabs weekly methotrexat 2018-0 Yes 20mg Take 8 [facility] e 5-22 Tabs by College (RHEUMATREX 00:00: mouth of ) 2.5 MG 00 every 7 Medicin tablet days. e Indication s: 8 tabs weekly methotrexat 2018-0 Yes 20mg Take 8 [facility] e 5-22 Tabs by [place] (RHEUMATREX 00:00: mouth of ) 2.5 MG 00 every 7 Medicin tablet days. e Indication s: 8 tabs weekly levothyroxi 2018-0 Yes 88ug 88 mcg [facility] ne 4-04 daily. [place] (SYNTHROID) 00:00: of 125 MCG 00 Medicin tablet e levothyroxi 2018-0 Yes 75ug 75 mcg [facility] ne 4-04 daily. [place] (SYNTHROID) 00:00: of 125 MCG 00 Medicin tablet e levothyroxi 2018-0 Yes 88ug 88 mcg [facility] ne 4-04 daily. [place] (SYNTHROID) 00:00: of 125 MCG 00 Medicin tablet e nadolol 2018-0 Yes daily. [facility] (CORGARD) 3-28 College 40 MG 00:00: of tablet 00 Medicin e nadolol 2018-0 Yes daily. [facility] (CORGARD) 3-28 College 40 MG 00:00: of tablet 00 Medicin e meloxicam 2018-0 Yes daily. [facility] (MOBIC) 15 3-28 College MG tablet 00:00: of 00 Medicin e nadolol 2018-0 Yes daily. [facility] (CORGARD) 3-28 College 40 MG 00:00: of tablet 00 Medicin e folic acid 2018-0 Yes daily. [place] [facility] (FOLVITE) 1 3-16 College MG tablet 00:00: of 00 Medicin e Vital Signs Vital Name Observation Time Observation Value Comments Source Systolic blood 2020-09-08 19:11:00 119 mm[Hg] [facility] pressure Medicine Diastolic blood 2020-09-08 19:11:00 80 mm[Hg] [facility] pressure Medicine Heart rate 2020-09-08 19:11:00 75 /min [facility] Body temperature 2020-09-08 19:11:00 36.28 [facility] Respiratory rate 2020-09-08 19:11:00 16 /min [facility] Body height 2020-09-08 19:11:00 167.6 cm [facility] Body weight 2020-09-08 19:11:00 115.486 kg [facility] BMI 2020-09-08 19:11:00 41.09 kg/m2 [facility] Oxygen saturation in 2020-09-08 19:11:00 97 /min [facility] of Arterial blood by Medicine Pulse oximetry Systolic blood 2020-09-08 19:11:00 119 mm[Hg] [facility] pressure Medicine Diastolic blood 2020-09-08 19:11:00 80 mm[Hg] [facility] Medicine Heart rate 2020-09-08 19:11:00 75 /min [facility] Body temperature 2020-09-08 19:11:00 36.28 [facility] Respiratory rate 2020-09-08 19:11:00 16 /min [facility] Body height 2020-09-08 19:11:00 167.6 cm [facility] Body weight 2020-09-08 19:11:00 115[facility]486 [facility] BMI 2020-09-08 19:11:00 41.09 kg/m2 [facility] Oxygen saturation in 2020-09-08 19:11:00 97 /min [facility] Arterial blood by Medicine Pulse oximetry Systolic blood 2020-04-07 18:19:00 119 mm[Hg] [facility] pressure Medicine Diastolic blood 2020-04-07 18:19:00 81 mm[Hg] [facility] Medicine Heart rate 2020-04-07 18:19:00 87 /min [facility] ollege of Medicine Body temperature 2020-04-07 18:19:00 37.11 [facility] Respiratory rate 2020-04-07 18:19:00 16 /min [facility] Body height 2020-04-07 18:19:00 167.6 cm [facility] Body weight 2020-04-07 18:19:00 111.857 kg [facility] BMI 2020-04-07 18:19:00 39.80 kg/m2 [facility] ollege of Medicine Oxygen saturation in 2020-04-07 18:19:00 97 /min [facility] of Arterial blood by Medicine Pulse oximetry Systolic blood 2020-04-07 18:19:00 119 mm[Hg] [facility] of pressure Medicine Diastolic blood 2020-04-07 18:19:00 81 mm[Hg] [facility] of pressure Medicine Heart rate 2020-04-07 18:19:00 87 /min [facility] Body temperature 2020-04-07 18:19:00 37.11 [facility] Respiratory rate 2020-04-07 18:19:00 16 /min [facility] Body height 2020-04-07 18:19:00 167.6 cm [facility] Body weight 2020-04-07 18:19:00 111.857 kg [facility] BMI 2020-04-07 18:19:00 39.80 kg/m2 [facility] ol[facility] of Medicine Oxygen saturation in 2020-04-07 18:19:00 97 /min [facility] of Arterial blood by Medicine Pulse oximetry Systolic blood 2019-09-02 16:53:00 155 mm[Hg] [facility] Medicine Diastolic blood 2019-09-02 16:53:00 84 mm[Hg] [facility] Medicine Heart rate 2019-09-02 16:53:00 59 /min [facility] ol[facility] of Medicine Body temperature 2019-09-02 16:53:00 36.89 [facility] Respiratory rate 2019-09-02 16:53:00 16 /min [facility] Body height 2019-09-02 16:53:00 167.6 cm [facility] ol[facility] of Medicine Body weight 2019-09-02 16:53:00 93.985 kg [facility] BMI 2019-09-02 16:53:00 33.44 kg/m2 [facility] ol[facility] of Medicine Oxygen saturation in 2019-09-02 16:53:00 99 /min [facility] of Arterial blood by Medicine Pulse oximetry Systolic blood 2019-09-02 16:53:00 155 mm[Hg] [employer] of pressure Medicine Diastolic blood 2019-09-02 16:53:00 84 mm[Hg] [facility] pressure Medicine Heart rate 2019-09-02 16:53:00 59 /min [facility] Body temperature 2019-09-02 16:53:00 36.89 [facility] Respiratory rate 2019-09-02 16:53:00 16 /min [facility] Body height 2019-09-02 16:53:00 167.6 cm [facility] Body weight 2019-09-02 16:53:00 93.985 kg [facility] BMI 2019-09-02 16:53:00 33.44 kg/m2 [facility] Oxygen saturation in 2019-09-02 16:53:00 99 /min [facility] Arterial blood by [facility] Pulse oximetry Procedures This patient has no known procedures. Plan of Care Planned Activity Planned Date Details Comments Source Diagnostic Test 2020-09-08 CBC W/AUTO DIFF WITH Expected: [facility] Pending 00:00:00 PLATELETS [code = 09/08/2020, of Medicin e 76844-2] Expires: 03/08/2021 Diagnostic Test 2020-09-08 COMPREHENSIVE Expected: [facility] [place] Pending 00:00:00 METABOLIC PANEL [code 09/08/2020, of Med icine = 34239-7] Expires: 03/08/2021 Diagnostic Test 2020-09-08 C-REACTIVE PROTEIN Expected: [facility] Pending 00:00:00 [code = 1988-5] 09/08/2020, of Medicine Expires: 03/08/2021 Diagnostic Test 2020-05-07 COMPREHENSIVE Expected: [facility] [place] Pending 00:00:00 METABOLIC PANEL [code 05/07/2020, of Med icine = 28320-9] Expires: 10/05/2020 Diagnostic Test 2020-05-07 C-REACTIVE PROTEIN Expected: [facility] Pending 00:00:00 [code = 1988-5] 05/07/2020, of Medicine Expires: 10/05/2020 Diagnostic Test 2020-04-07 CBC W/AUTO DIFF WITH Expected: [facility] Pending 00:00:00 PLATELETS [code = 04/07/2020, of Medicin e 39817-2] Expires: 10/05/2020 Future Scheduled TETANUS SHOT (ADULT) [place] [facility] [employer] Test [code = TETANUS SHOT of Medi cine (ADULT)] Future Scheduled BMI FOLLOW UP PLAN [employer] Test [code = BMI FOLLOW UP of Med icine PLAN] Future Scheduled HIV SCREENING [code = [employer] [facility] [employer] Test HIV SCREENING] of Medicine Future Scheduled CERVICAL CANCER [facility] C [facility]lege Test SCREENING 3 YEAR of Medicine FOLLOW UP [code = CERVICAL CANCER SCREENING 3 YEAR FOLLOW UP] Future Scheduled FLU VACCINE > 6 [facility] C [facility]lege Test MONTHS [code = FLU of Medici ne VACCINE > 6 MONTHS] Future Scheduled ZOSTER VACCINE (1 of [place] [facility] Test 2) [code = ZOSTER of Medicin e VACCINE (1 of 2)] Future Scheduled COVID-19 Vaccine [facility] [employer] Test Evaluation [code = of Medici ne COVID-19 Vaccine Evaluation] Future Scheduled MAMMOGRAM ANNUAL [facility] College Test [code = MAMMOGRAM of Medicin e ANNUAL] Future Scheduled TETANUS SHOT (ADULT) [place] [facility] Test [code = TETANUS SHOT of Medi cine (ADULT)] Future Scheduled BMI FOLLOW UP PLAN [employer] Test [code = BMI FOLLOW UP of Med icine PLAN] Future Scheduled HIV SCREENING [code = [employer] [facility] [employer] Test HIV SCREENING] of Medicine Future Scheduled CERVICAL CANCER [facility] Test SCREENING 3 YEAR of Medicine FOLLOW UP [code = CERVICAL CANCER SCREENING 3 YEAR FOLLOW UP] Future Scheduled FLU VACCINE > 6 [facility] Test MONTHS [code = FLU of Medici ne VACCINE > 6 MONTHS] Future Scheduled MAMMOGRAM ANNUAL [facility] Test [code = MAMMOGRAM of Medicin e ANNUAL] Future Scheduled TETANUS SHOT (ADULT) [place] [facility] Test [code = TETANUS SHOT of Medi cine (ADULT)] Future Scheduled BMI FOLLOW UP PLAN [employer] Test [code = BMI FOLLOW UP of Med icine PLAN] Future Scheduled HIV SCREENING [code = [employer] Test HIV SCREENING] of Medicine Future Scheduled CERVICAL CANCER [facility] C [facility]lege Test SCREENING 3 YEAR of Medicine FOLLOW UP [code = CERVICAL CANCER SCREENING 3 YEAR FOLLOW UP] Future Scheduled FLU VACCINE > 6 [facility] Test MONTHS [code = FLU of Medici ne VACCINE > 6 MONTHS] Future Scheduled MAMMOGRAM ANNUAL [facility] Test [code = MAMMOGRAM of Medicin e ANNUAL] Encounters Start End Encounter Admission Attending Care Care Encounter Source Date/Time Date/Time Type Type Clinicians Facility Department ID 2021-04-04 2021-04-04 Outpatient SONAL [facility] [id number] [facility] 13:16:17 13:28:57 [facility] of Medicin e 2021-03-28 2021-03-28 Outpatient SONAL [facility] [id number] [facility] 09:37:21 09:58:26 DESM[facility]in e 2021-03-22 2021-03-22 Outpatient SAL [facility] [id number] [facility] 10:37:37 10:47:12 DAVID [facility]in e 2021-03-17 2021-03-17 Outpatient HUANG, [facility] [id number] [facility] 14:20:35 14:35:25 DAVID [facility]in e 2021-03-16 2021-03-16 Outpatient SAL [facility] [id number] [facility] 11:44:03 11:52:25 DAVID [facility]in e 2021-03-14 2021-03-14 Outpatient SONAL [facility] [id number] [facility] 17:02:24 17:53:45 DESMOND [facility]in e 2021-03-11 2021-03-11 Outpatient RONI [facility] [id number] [facility] 10:00:21 10:10:17 DIPABEN [facility] of Medicin e 2020-10-21 2020-10-21 Patient Car NJLUIS [id number] 00:00:00 00:00:00 Outreach Antonio PRIMARY [id number] [facility] C[facility] [id number] IVET [id number] 2020-09-08 2020-09-08 Office Nya [facility] [id number] 12:48:29 16:15:07 Visit nissa [facility] AMBULATOR [id number] [place] [id number] 2020-09-08 2020-09-08 Office Bhairavaras BCM [id number] [facility] 12:48:29 16:15:07 Visit u, [place] AMBULATOR [id number] [facility] [place] [facility] [id number] of [id number] Medi suresh 370 e 2020-04-07 2020-04-07 Office Bhairavaras BCM [id number] 13:05:16 13:35:16 Visit u, [place] AMBULATOR [id number] [place] [facility] [id number] [id number] 2020-04-07 2020-04-07 Office Bhairavaras BCM [id number] [facility] 13:05:16 13:35:16 Visit u, [place] AMBULATOR [id number] [facility] [place] [id number] of [id number] Medi suresh 370 e 2019-09-02 2019-09-02 Office Bhairavaras BCM [id number] 10:34:12 11:59:44 Visit u, [place] AMBULATOR [id number] [place] [id number] 2019-09-02 2019-09-02 Office Bhairavaras BCM [id number] [facility] 10:34:12 11:59:44 Visit u, [place] AMBULATOR [id number] [facility] [place] [id number] of [id number] [facility] suresh 370 e Results This patient has no known results.
--- NOTE | 2021-09-06 08:14 | RAD REPORT ---
EXAM DESCRIPTION: CT - Soft Tissue Neck W/Contr CLINICAL HISTORY: left neck/jaw/facial pain with trismus COMPARISON: No comparisons TECHNIQUE All CT scans are performed using dose optimization technique as appropriate and may includ e automated exposure control or mA/KV adjustment according to patient size. FINDINGS: Nasopharyngeal tissues are normal in appearance. Fossa Rosenmller are normal. Parapharyngeal fat triangles are symmetric. Tongue base structures are normal. Epiglottis and aryepiglottic folds are normal. Piriform sinuses are well aerated. The vocal cords are normal in appearance. Salivary glands are normal in appearance. Upper lung kim are clear. Included intracranial contents are unremarkable. IMPRESSION: No acute soft tissue abnormality identified within the neck.
--- NOTE | 2021-09-06 08:32 | EDPHYS ---
Physician Documentation [facility] Name: Niki Martino Age: 46 yrs Sex: Female : 1975 Arrival Date: 09/06/2021 Time: 07:13 Bed 7 Private MD: Mojgan Diallo ED Physician Jose Francisco Michaud HPI: 09/06 08:01 This 46 yrs old Female presents to ER via Ambulatory with complaints of right cheek rn swelling/pain. 08:01 The patient or guardian complains of pain, that is acute. The symptoms are located left rn jawline and cheek. Onset: The symptoms/episode began/occurred yesterday. Context: The problem was sustained at home, The neck injury/problem resulted from from unknown cause. Associated signs and symptoms: Pertinent positives: This patient does not have any pertinent positive signs or symptoms associated with neck pain. Pertinent negatives: fever, headache, bladder incontinence, bowel incontinence, numbness, tingling, vomiting, weakness. The pain does not radiate. Modifying factors: The symptoms are alleviated by nothing. the symptoms are aggravated by movement, pressure. Severity of symptoms: At their worst the symptoms were moderate, in the emergency department the symptoms have improved. The patient has not experienced similar symptoms in the past. The patient has not recently seen a physician. Pt reports left jaw/cheek pain, began 2 days ago, no fever, no trauma, no dental pain. Reports had sore throat 2 weeks ago but took zithromax and got better. No difficulty swallowing. no change in voice. No chest pain or sob. . 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: 08:25 LMP N/A - Irregular menses jd3 Historical: - Allergies: 07:22 Augmentin; ww 07:22 Codeine; ww 07:22 Cleocin; ww 07:22 BENZOYL PEROXIDE; ww - Home Meds: 07:22 Synthroid 88 mcg Oral tab 1 tab once daily [Active]; Trulicity 0.75 mg/0.5 mL ww subcutaneous pnij 0.5 mL once wkly [Active]; emgality monthly injections [Active]; Viibryd 20 mg Oral tab [Active]; Lunesta 3 mg Oral tab [Active]; alprazolam 0.5 mg Oral tab 1 tab nightly [Active]; rosuvastatin 10 mg Oral tab 1 tab once daily [Active]; propranolol 40 mg Oral tab [Active]; folic acid 1 mg Oral tab 1 tab once daily [Active]; amitriptyline 25 mg Oral tab 1 tab once daily [Active]; Adderall XR 30 mg Oral cp24 [Active]; Tremfya 100 mg/mL subcutaneous atIn 1 mL every 8 wks [Active]; mirtazapine 7.5 mg Oral tab 1 tab once daily [Active]; Celebrex 200 mg Oral cap 1 cap 2 times per day [Active]; - PMHx: 07:22 Arthritis; Diabetes - NIDDM; Hyperlipidemia; Hypothyroidism; Migraines; ww - Immunization history:: Adult Immunizations up to date. - Social history:: Smoking status: Patient denies any tobacco usage or history of. - Family history:: not pertinent. - Hospitalizations: : No recent hospitalization is reported. ROS: 08:03 Constitutional: Negative for fever, chills, and weight loss, Eyes: Negative for injury, rn pain, redness, and discharge, ENT: + left dental and jaw pain Neck: Negative for injury, and swelling, Cardiovascular: Negative for chest pain, palpitations, and edema, Respiratory: Negative for shortness of breath, cough, wheezing, and pleuritic chest pain. Exam: 08:03 Constitutional: This is a well developed, well nourished patient who is awake, alert, rn and in no acute distress. Head/Face: Normocephalic, atraumatic. Eyes: Periorbital areas with no swelling, redness, or edema. ENT: No obvious abscess or oral swelling, uvula midline, MMM, no stridor Neck: Non-tender bilateral cervical LAD, no crepitus, no masses, Mild tenderness along left mandible and over left parotid 08:29 ECG was reviewed by the Attending Physician. rn Vital Signs: 07:17 BP 123 / 68; Pulse 67; Resp 18; Temp 97.7; Pulse Ox 97% on R/A; Weight 111.13 kg; ww Height 5 ft. 6 in. (167.64 cm); Pain 7/10; 09:10 BP 111 / 80; Pulse 64; Resp 18 S; Pulse Ox 94% on R/A; jd3 07:17 Body Mass Index 39.54 (111.13 kg, 167.64 cm) ww MDM: 07:17 Patient medically screened. rn 08:29 Differential diagnosis: parotitis, lymphadenitis, dentalgia, dental infection. Data rn reviewed: vital signs, nurses notes, EKG, radiologic studies, CT scan, and as a result, I will discharge patient. Counseling: I had a detailed discussion with the patient and/or guardian regarding: the historical points, exam findings, and any diagnostic results supporting the discharge/admit diagnosis, radiology results, the need for outpatient follow up, to return to the emergency department if symptoms worsen or persist or if there are any questions or concerns that arise at home. Special discussion: I discussed with the patient/guardian in detail that at this point there is no indication for admission to the hospital. It is understood, however, that if the symptoms persist or worsen the patient needs to return immediately for re-evaluation. 09/06 07:41 Order name: CT Soft Tissue Neck W/contr; Complete Time: 08:17 rn 09/06 08:03 Order name: EKG; Complete Time: 08:04 rn 09/06 07:41 Order name: IV Start; Complete Time: 07:55 rn 09/06 08:03 Order name: EKG - Nurse/Tech; Complete Time: 08:24 rn EC:29 Rate is 62 beats/min. Rhythm is regular. QRS [place] is Normal. AL interval is normal. QRS rn interval is normal. QT interval is normal. No Q waves. T waves are Normal. No ST changes noted. Clinical impression: Normal ECG. Administered Medications: No medications were administered Disposition Summary: 09/06/21 08:31 Discharge Ordered Location: Home rn Problem: new rn Symptoms: are unchanged rn Condition: Stable rn Diagnosis - Jaw pain rn Followup: rn - With: Private Physician - When: As needed - Reason: Recheck today's complaints, Re-evaluation by your physician Discharge Instructions: - Discharge Summary Sheet rn Forms: - Medication Reconciliation Form rn - Thank You Letter rn - Antibiotic tavern keeper - Prescription Opioid Use rn Prescriptions: - Zithromax Z-Jose Carlos 250 mg Oral Tablet - take 1 tablet by ORAL route as directed for 5 days Day 1 - take two (2) tablets rn one time. Day 2, 3, 4 , 5 take one (1) tablet once daily.; 6 tablet; Refills: 0, Product Selection Permitted - Medrol (Jose Carlos) 4 mg Oral Tablets, Dose Pack - take 1 tablet by ORAL route as directed - follow package instructions; 1 rn packet; Refills: 0, Product Selection Permitted Signatures: Dispatcher [employer] Jose Francisco Hodgson MD MD rn Wood, Whitney, RN RN ww
--- NOTE | 2021-09-06 08:32 | ER ---
Nurse's Notes [facility] Name: Niki Martino Age: 46 yrs Sex: Female : 1975 Arrival Date: 09/06/2021 Time: 07:13 Bed 7 Private MD: Mojgan Diallo Diagnosis: Jaw pain Presentation: 09/06 07:17 Chief complaint: Patient states: Left jaw pain that started yesterday. Coronavirus ww screen: Vaccine status: Patient reports receiving the 2nd dose of the covid vaccine. Client denies travel out of the [place] in the last 14 days. Ebola Screen: Patient negative for fever greater than or equal to 101.5 degrees Fahrenheit, and additional compatible Ebola Virus Disease symptoms Patient denies exposure to infectious person. Patient denies travel to an Ebola-affected area in the 21 days before illness onset. Ebola Screen: Patient negative for fever greater than or equal to 101.5 degrees Fahrenheit, and additional compatible Ebola Virus Disease symptoms Patient reports travel to Ebola-affected area in the 21 days before illness onset. Patient reports having traveled to: [place] 3 weeks ago. Initial Sepsis Screen: Does the patient meet any 2 criteria? No. Patient's initial sepsis screen is negative. Initial Sepsis Screen: Does the patient have a suspected source of infection? No. Patient's initial sepsis screen is negative. Risk Assessment: Do you want to hurt yourself or someone else? Patient reports no desire to harm self or others. Onset of symptoms was September 05, 2021. 07:17 Method Of Arrival: Ambulatory ww 07:17 Acuity: LUZMARIA 4 ww Triage Assessment: 07:22 General: Appears in no apparent distress. Behavior is calm, cooperative. Pain: ww Complains of pain in left ear, left cheek and left jaw. EENT:. Neuro: Level of Consciousness is awake, alert, obeys commands, Oriented to person, place, time, situation. Cardiovascular: Capillary refill < 3 seconds Patient's skin is warm and dry. Respiratory: Airway is patent Respiratory effort is even, unlabored, Respiratory pattern is regular, symmetrical. GI: No signs and/or symptoms were reported involving the gastrointestinal system. : No signs and/or symptoms were reported regarding the genitourinary system. Derm: Skin is healthy with good turgor. 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 N/A - Irregular menses jd3 Historical: - Allergies: 07:22 Augmentin; ww 07:22 Codeine; ww 07:22 Cleocin; ww 07:22 BENZOYL PEROXIDE; ww - Home Meds: 07:22 Synthroid 88 mcg Oral tab 1 tab once daily [Active]; Trulicity 0.75 mg/0.5 mL ww subcutaneous pnij 0.5 mL once wkly [Active]; emgality monthly injections [Active]; Viibryd 20 mg Oral tab [Active]; Lunesta 3 mg Oral tab [Active]; alprazolam 0.5 mg Oral tab 1 tab nightly [Active]; rosuvastatin 10 mg Oral tab 1 tab once daily [Active]; propranolol 40 mg Oral tab [Active]; folic acid 1 mg Oral tab 1 tab once daily [Active]; amitriptyline 25 mg Oral tab 1 tab once daily [Active]; Adderall XR 30 mg Oral cp24 [Active]; Tremfya 100 mg/mL subcutaneous atIn 1 mL every 8 wks [Active]; mirtazapine 7.5 mg Oral tab 1 tab once daily [Active]; Celebrex 200 mg Oral cap 1 cap 2 times per day [Active]; - PMHx: 07:22 Arthritis; Diabetes - NIDDM; Hyperlipidemia; Hypothyroidism; Migraines; ww - Immunization history:: Adult Immunizations up to date. - Social history:: Smoking status: Patient denies any tobacco usage or history of. - Family history:: not pertinent. - Hospitalizations: : No recent hospitalization is reported. Screenin:26 Abuse screen: Denies threats or abuse. Denies injuries from another. Nutritional ww screening: No deficits noted. Tuberculosis screening: No symptoms or risk factors identified. Fall Risk None identified. Assessment: 08:24 General: Appears in no apparent distress. comfortable, Behavior is calm, cooperative, jd3 appropriate for age. Pain: Complains of pain in left jaw Quality of pain is described as sharp. Neuro: Level of Consciousness is awake, alert, obeys commands, Oriented to person, place, time, situation. Cardiovascular: Capillary refill < 3 seconds Patient's skin is warm and dry. Rhythm is regular. Respiratory: Airway is patent Respiratory effort is even, unlabored, Respiratory pattern is regular, symmetrical, Denies cough, shortness of breath. GI: No signs and/or symptoms were reported involving the gastrointestinal system. : No signs and/or symptoms were reported regarding the genitourinary system. EENT: Good dentition noted. Derm: Skin is intact, Skin is dry, Skin is normal, Skin temperature is warm. Musculoskeletal: Circulation, motion, and sensation intact. Range of motion: intact in all extremities. Vital Signs: 07:17 BP 123 / 68; Pulse 67; Resp 18; Temp 97.7; Pulse Ox 97% on R/A; Weight 111.13 kg; ww Height 5 ft. 6 in. (167.64 cm); Pain 7/10; 09:10 BP 111 / 80; Pulse 64; Resp 18 S; Pulse Ox 94% on R/A; jd3 07:17 Body Mass Index 39.54 (111.13 kg, 167.64 cm) ww ED Course: 07:13 Patient arrived in ED. am2 07:13 Abigail Smith MD is Private Physician. am2 07:13 Mojgan Diallo MD is Private Physician. am2 07:17 Jose Francisco Michaud MD is Attending Physician. rn 07:22 Triage completed. ww 07:22 Arm band placed on right wrist. ww 07:56 Inserted saline lock: 20 gauge in right antecubital area, using aseptic technique. ww 08:04 Husam Samson RN is Primary Nurse. jd3 08:04 CT Soft Tissue Neck W/contr In Process Unspecified. EDMS 08:24 EKG done, by ED staff, reviewed by Jose Francisco Michaud MD. jd3 08:26 Patient has correct armband on for positive identification. Bed in low position. Call jd3 light in reach. Side rails up X 1. Adult w/ patient. Pulse ox on. NIBP on. 09:11 No provider procedures requiring assistance completed. IV discontinued, intact, jd3 bleeding controlled, No redness/swelling at site. Pressure dressing applied. Administered Medications: No medications were administered Outcome: 08:31 Discharge ordered by . rn 09:12 Discharged to home ambulatory, with family. jd3 09:12 Condition: stable 09:12 Discharge instructions given to patient, family, Instructed on discharge instructions, follow up and referral plans. medication usage, Demonstrated understanding of instructions, follow-up care, medications, Prescriptions given X 2. 09:13 Patient left the ED. jd3 Signatures: Dispatcher [employer] Jose Francisco Hodgson MD MD rn Cassia Calles Jonathon RN RN Ashley Ferguson RN RN ww Corrections: (The following items were deleted from the chart) 08:30 08:24 EKG done, by ED staff, reviewed by Jose Francisco rachel jd3
[2021-09-06 09:17] VITALS: TEMP 97.7
[2021-09-06 09:18] VITALS: BP 111/80; O2SAT 94
--- NOTE | 2021-09-07 13:08 | EKG ---
Test Date: 2021-09-06 Test Time: 08:21:48 Mine Safety Engineer: RENZO MEASUREMENT RESULTS: Intervals: Rate: 62 ME: 186 QRSD: 90 QT: 392 QTc: 397 [place]: P: 42 ME: 186 QRS: 34 T: 55 INTERPRETIVE STATEMENTS: Normal sinus rhythm Normal ECG Compared to ECG 09/30/2020 21:35:23 ST (T wave) deviation no longer present Electronically Signed On 09-07-21 13:03:22 BODY ARTIST by Jordy Hdz
== END 2021-09-06 09:13 | disposition home or self-care (01) ==
LOC: ER 07:12
DX: R68.84 Jaw pain (principal); E11.9 Type 2 diabetes mellitus without complications; E03.9 Hypothyroidism, unspecified; Z88.1 Allergy status to other antibiotic agents; Z88.5 Allergy status to narcotic agent; Z88.8 Allergy status to other drugs, medicaments and biological substances
CPT/HCPCS: 93005; 70491; 99284; Q9967

== ENCOUNTER 2022-06-21 16:22 | Emergency (ER) | payer BC ==
--- OUTSIDE RECORDS SUMMARY | 2022-06-21 16:26 | XMS REPORT | Continuity of Care Document ---
:1975 Author Organization [facility] t Address [address] [place] [address] Care Team Providers Name Role Phone Huoston Sahu MD Primary Care Physician DESMOND PRUITT Attending Clinician Unavailable DAVID HUANG Attending Clinician Unavailable MED TAMAYO Attending Clinician Unavailable Antonio Yoon DO Attending Clinician Izabel RIVERA, Pricilla Canales Attending Clinician [phone] Payers Payer Name Policy Type Policy Number Effective Date Expiration Date S ouryan OPEN ACCESS PLUS [id number] 2019 - [employer]IG[employer] 00:00:00 GENERIC PPO - [id number] 2013 GENERIC PAYOR 00:00:00 HEALTH FIRST TPA [id number] - PPO NEXT OPEN ACCESS [id number] HMO/POS/EPO/PPO - AETNA Problems Condition Condition Condition Status Onset Resolution Last Treating Co mments Source Name Details Category Date Date Treatment Clinician Date Vitamin D Vitamin D Disease Active Met [facility] deficiency deficiency 03-14 disease disease 00:00: Hospita 00 l Hip Hip Disease Active [facility] bursitis bursitis 03-14 00:00: Hospita 00 l 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 thritis thritis 08-16 00:00: Hospita 00 l Hypothyroi Hypothyroi Disease Active M ethodi dism dism 01-26 00:00: Hospita 00 l Migraines Migraines Disease Active Met hodi 01-26 00:00: Hospita 00 l Fatigue Fatigue Disease Active [facility] Visual Visual Disease [facility] Menstrual Menstrual Disease Active [facility] disorder disorder [facility] Allergies, Adverse Reactions, Alerts Allergy Allergy Status Severity Reaction(s) Onset Inactive Treating Comm ents Source Name Type Date Date Clinician Amoxicil Propensi Active [facility] prieto-Pot ty to 11-23 College Clavulan adverse 00:00: of ate reaction 00 Medicin s to e drug Benzyl Propensi Active [facility] Benzoate ty to 4-20 College adverse 00:00: of reaction 00 Medicin s to e drug Clindamy Propensi Active [facility] suresh/Linc ty to 20 [place] omycin adverse 00:00: of reaction 00 Medicin s to e drug Codeine Propensi Active [facility] ty to 4-20 College adverse 00:00: of reaction 00 Medicin s to e drug Amoxicil Propensi Active Method i prieto-Pot ty to 01-26 Clavulan adverse 00:00: Hospita ate reaction 00 l s to drug Clindamy Propensi Active [facility] i suresh Hcl ty to 01-26 adverse 00:00: Hospita reaction 00 l s to drug Codeine Propensi Active Methodi ty to 01-26 adverse 00:00: Hospita reaction 00 l s to drug Family History Family Member Diagnosis Comments Start Date Stop Date Source Maternal Breast cancer [facility] [place] Maternal Hyperlipidemia [facility] [place] Maternal Stroke [facility] [place] Natural mother Lung cancer [facility] Natural mother [facility] Natural mother Thyroid disease [facility] Paternal aunt Alzheimer's disease [facility] Paternal aunt [facility] Paternal Heart disease [facility] Natural sister Heart [facility] Natural father Multiple sclerosis [facility] Natural father Other [facility] Maternal aunt Hyperlipidemia [facility] Maternal aunt Hypertension [facility] Maternal aunt Psoriasis [facility] Social History Social Habit Start Date Stop Date Quantity Comments Source History of Smoker [facility] of tobacco use Medicine History [facility] Frequency Hospita l History [facility]AL [facility] Drinks History [facility] Alcohol intake 2016-06-16 2016-06-16 Current drinker [facility] 00:00:00 00:00:00 of alcohol Hospital (finding) Alcohol Comment 2016-06-16 2016-06-16 month [facility] 00:00:00 00:00:00 Hospital Tobacco use and 2016-06-16 2016-06-16 Smokeless tobacco [facility] exposure 00:00:00 00:00:00 non-user Hospital Sex Assigned At [birth year] [facility] 00:00:[facility]00 Hospital Smoking Status Start Date Stop Date Source Former smoker 2020-09-08 00:00:00 2020-09-08 00:00:00 [facility] Medicine Medications Ordered Filled Start Stop Current Ordering Indication Dosage Frequency Signature Comments Components Source Medication Medication Date Date Medication? Clinician (SIG) Name Name rosuvastati Yes 10mg Take 10 mg [facility] n (CRESTOR) 2-03 by mouth [place] 10 MG 19:20: daily. of tablet 04 Medicin e alprazolam Yes .5mg Take 0.5 [facility] (XANAX) 0.5 2-03 mg by College MG tablet 19:20: mouth as of 04 needed. Medicin e Dulaglutide Yes Inject [facility] (TRULICITY) 2-03 into the [place] 0.75 19:20: skin. of MG/0.5ML 04 Medicin SOPN e montelukast Yes 10mg Take 10 mg [facility] (SINGULAIR) 2-03 by mouth [place] 10 MG 19:20: daily. of tablet 04 Medicin e escitalopra Yes 10mg Take 10 mg [facility] m (LEXAPRO) 2-03 by mouth [place] 10 MG 19:20: daily. of tablet 04 Medicin e Lisdexamfet Yes Take by [facility] amine 2-03 mouth. College Dimesylate 19:20: of (VYVANSE) 04 Medicin 50 MG CAPS e Magnesium Yes Take by [facility] Oxide 2-03 mouth. [place] (MAGOX 400 19:20: of OR) 04 Medicin e buPROPion Yes 150mg Take 150 [facility] sa[facility] (WELLBUTRIN 2-03 mg by [facility]) 19:20: mouth two of 150 MG SR 04 times Medicin tablet daily. e amphetamine Yes 10mg Take 10 mg [facility] -dextroamph 2-03 by mouth [place] etamine 19:20: daily. of (ADDERALL, 04 Medicin 10MG,) 10 e MG tablet FOLIC ACID Yes 2mg Take 2 mg [facility] OR 2-03 by mouth. [place] 19:20: of 04 Medicin e propranolol Yes 40mg Take 40 mg [facility] (INDERAL) 2-03 by mouth 3 [place] 40 MG 19:20: times of tablet 04 daily. Medicin e amobarbital Yes 500mg Inject 500 [facility] (AMYTAL 2-03 mg into College SODIUM) 500 19:20: the vein of MG 04 once. Medicin injection e meloxicam Yes [id number] 15mg Take 1 [facility] (MOBIC) 15 1-12 Tablet by [place] MG tablet 00:00: mouth of 00 daily. Medicin e methotrexat Yes [id number] 15mg Take 6 [facility] e 1-12 Tablets by [place] (RHEUMATREX 00:00: mouth of ) 2.5 MG 00 every 7 Medicin tablet days. e buPROPion Yes 150mg Take 150 [facility] (WELLBUTRIN 9-02 mg by [place] [facility]) 18:33: mouth two of 150 MG SR 02 times Medicin tablet daily. e amphetamine Yes 10mg Take 10 mg [facility] -dextroamph 9-02 by mouth [place] etamine 18:33: daily. of (ADDERALL, 02 Medicin 10MG,) 10 e MG tablet FOLIC ACID Yes 2mg Take 2 mg [facility] OR 9-02 by mouth. [place] 18:33: of 02 Medicin e propranolol Yes 40mg Take 40 mg [facility] (INDERAL) 9-02 by mouth 3 [place] 40 MG 18:33: times of tablet 02 daily. Medicin e amobarbital 2020-0 Yes 500mg Inject 500 [facility] (AMYTAL 9- mg into College SODIUM) 500 18:33: the vein of MG 02 once. Medicin injection e rosuvastati 2020-0 Yes 10mg Take 10 mg [facility] n (CRESTOR) 04-07 by mouth [place] 10 MG 18:25: daily. of tablet 04 Medicin e alprazolam 2020-0 Yes .5mg Take 0.5 [facility] (XANAX) 0.5 -02 mg by [place] MG tablet 18:25: mouth as of 04 needed. Medicin e Dulaglutide 2019-0 Yes Inject [facility] (TRULICITY) 04-07 into the [place] 0.75 18:25: skin. of MG/0.5ML 04 Medicin SOPN e montelukast 2019-0 Yes 10mg Take 10 mg [facility] (SINGULAIR) 04-07 by mouth [place] 10 MG 18:25: daily. of tablet 04 Medicin e escitalopra 2019-0 Yes 10mg Take 10 mg [facility] m (LEXAPRO) 04-07 by mouth [place] 10 MG 18:25: daily. of tablet 04 Medicin e Lisdexamfet 2019-0 Yes Take by [facility] amine 04-07 mouth. [place] Dimesylate 18:25: of (VYVANSE) 04 Medicin 50 MG CAPS e Adalimumab 2020-0 Yes [id number] 40mg Inject 40 [facility] 40 MG/0.4ML 9-02 mg into Colle ge PNKT 00:00: the skin of 00 every 7 Medicin days. e methotrexat 2020-0 Yes [id number] 15mg Take 6 B aylor e - Tabs by [place] (RHEUMATREX 00:00: mouth of ) 2.5 MG 00 every 7 Medicin tablet days. e Adalimumab 2020-0 Yes [id number] 40mg Inject 40 [facility] 40 MG/0.4ML 9-02 mg into Colle ge PNKT 00:00: the skin of 00 every 7 Medicin days. e methotrexat 2020-0 2020- No [id number] 20mg Take 8 [facility] e 6-29 - Tabs by [place] (RHEUMATREX 00:00: 00:00 mouth of ) 2.5 MG 00 :00 every 7 Medicin tablet days. e Diclofenac 2020-0 Yes [id number] 1% Place 1 [facility] Sodium 1 % 5-22 Percent Colleg e GEL 00:00: onto the of 00 skin two Medicin times e daily. Diclofenac 2020-0 [id number] 1% Place 1 [facility] Sodium 1 % 5-22 Percent Colleg e GEL 00:00: onto the of 00 skin two Medicin times e daily. meloxicam 2020-0 Yes [id number] 15mg Take 1 Tab [facility] (MOBIC) 15 5-22 by mouth Colle ge [...] azithromyci 2020-0 Yes 250mg Take 1 Tab [facility] n 2-12 by mouth College (ZITHROMAX 00:00: daily. Day o f Z-CJ) 250 00 1- take 2 Medi suresh MG tablet pills once e a day , day 2-5 take 1 pill every day rosuvastati 2019-0 Yes 10mg Take 10 mg [facility] n (CRESTOR) 1-28 by mouth [place] 10 MG 16:55: daily. of tablet 14 Medicin e alprazolam 2019-0 Yes .5mg Take 0.5 [facility] (XANAX) 0.5 1-28 mg by College MG tablet 16:55: mouth as of 14 needed. Medicin e Dulaglutide 2019-0 Yes Inject [facility] (TRULICITY) 1-28 into the [place] 0.75 16:55: skin. of MG/0.5ML 14 Medicin SOPN e montelukast 2020-0 Yes 10mg Take 10 mg [facility] (SINGULAIR) 1-28 by mouth [place] 10 MG 16:55: daily. of tablet 14 Medicin e escitalopra 2019-0 Yes 10mg Take 10 mg [facility] m (LEXAPRO) 09-02 by mouth [place] 10 MG 16:55: daily. of tablet 14 Medicin e Lisdexamfet 2020-0 Yes Take by [facility] amine 09-02 mouth. [place] Dimesylate 16:55: of (VYVANSE) 14 Medicin 50 MG CAPS e Magnesium 2020-0 Yes Take by [facility] Oxide - mouth. [place] (MAGOX 400 16:55: of OR) 14 Medicin e Magnesium 2020-0 Yes Take by [facility] Oxide - mouth. [place] (MAGOX 400 16:55: of OR) 14 Medicin e etanercept 2019-0 Yes 50mg Inject 50 [facility] (ENBREL 1-28 mg into [place] SURECLICK) 00:00: the skin of 50 MG/ML [...] [place] MG TABS 00:00: daily. of 00 Medicin e EMGALITY Yes 120mg Inject 120 [facility] 120 MG/ML 9-24 mg into [place] SOAJ 00:00: the skin of 00 every 30 Medicin days. e EMGALITY Yes 120mg Inject 120 [facility] 120 MG/ML 9-24 mg into [place] SOAJ 00:00: the skin of 00 every 30 Medicin days. e EMGALITY Yes 120mg Inject 120 [facility] 120 MG/ML 9-24 mg into [place] SOAJ 00:00: the skin of 00 every 30 Medicin days. e meloxicam Yes TAKE 1 [facility] i (MOBIC) 15 1-[address] mg tablet 00:00: MOUTH Hospita 00 DAILY l meloxicam Yes TAKE 1 [facility] i (MOBIC) 15 1-[address] mg tablet 00:00: MOUTH Hospita 00 DAILY l methotrexat 2018-0 Yes 20mg Take 8 [facility] [...] 88 mcg [facility] ne 4-04 daily. [place] (SYNTHROID) 00:00: of 125 MCG 00 Medicin tablet e levothyroxi 2018-0 Yes 75ug 75 mcg [facility] ne 4-04 daily. [place] (SYNTHROID) 00:00: of 125 MCG 00 Medicin tablet e levothyroxi 2018-0 Yes 88ug 88 mcg [facility] ne 4-04 daily. [place] (SYNTHROID) 00:00: of 125 MCG 00 Medicin tablet e nadolol 2018-0 Yes daily. [facility] (CORGARD) 3-28 College 40 MG 00:00: of tablet 00 Medicin e nadolol 2018-0 Yes daily. [facility] (CORGARD) 3-28 College 40 MG 00:00: of tablet 00 Medicin e meloxicam 2018-0 Yes daily. [facility] (MOBIC) 15 3-28 College MG tablet 00:00: of 00 Medicin e nadolol 2018-0 Yes daily. [facility] (CORGARD) 3-28 College 40 MG 00:00: of tablet 00 Medicin e folic acid 2018-0 Yes daily. [facility] (FOLVITE) 1 3-16 College MG tablet 00:00: of 00 Medicin e cholecalcif 2016-08 Yes 2000U QD Take 2,000 Methodi martha, 2-[address] vitamin D3, 14:23: mouth Hospi ta (VITAMIN 28 daily. l D3) 2,000 unit capsule capsule B complex 2016-08 Yes QD Take by [facility] with 2-[address] C#20-folic 14:23: daily. Hospi ta acid 1 mg 28 l capsule cholecalcif 2016-08 Yes 2000U QD Take 2,000 Methodi martha, 2-[address] vitamin D3, 14:23: mouth Hospi ta (VITAMIN 28 daily. l D3) 2,000 unit capsule capsule B complex 2016-08 Yes QD Take by [facility] with 2-[address] C#20-folic 14:23: daily. Hospi ta acid 1 mg 28 l capsule rosuvastati 2016-08 Yes Method i n (CRESTOR) 09-03 st 10 MG 00:00: Hospita tablet 00 l rosuvastati 2016-08 Yes Method i n (CRESTOR) 09-03 st 10 MG 00:00: Hospita tablet 00 l levothyroxi 2016-08 Yes Method i ne 09-01 st (SYNTHROID, 00:00: Hospit a LEVOXYL) 00 l 125 mcg tablet levothyroxi 2016-08 Yes Method i ne 09-01 st (SYNTHROID, 00:00: Hospit a LEVOXYL) 00 l 125 mcg tablet nadolol Yes 40mg QD Take 40 mg [facility] (CORGARD) 6-[address] 40 MG 00:00: daily. Hospita tablet 00 l nadolol Yes 40mg QD Take 40 mg [facility] (CORGARD) 6-[address] 40 MG 00:00: daily. Hospita tablet 00 l Vital Signs Vital Name Observation Time Observation Value Comments Source Systolic blood 2020-09-08 19:11:00 119 mm[Hg] [facility] pressure Medicine Diastolic blood 2020-09-08 19:11:00 80 mm[Hg] [facility] pressure Medicine Heart rate 2020-09-08 19:11:00 75 /min [facility] Body temperature 2020-09-08 19:11:00 36.28 [facility] Respiratory rate 2020-09-08 19:11:00 16 /min [facility] Body height 2020-09-08 19:11:00 167.6 cm [facility] Body weight 2020-09-08 19:11:00 115.486 kg [facility] BMI 2020-09-08 19:11:00 41.09 kg/m2 [facility] Oxygen saturation in 2020-09-08 19:11:00 97 /min [facility] of Arterial blood by Medicine Pulse oximetry Systolic blood 2020-09-08 19:11:00 119 mm[Hg] [facility] of pressure Medicine Diastolic blood 2020-09-08 19:11:00 80 mm[Hg] [facility] Heart rate 2020-09-08 19:11:00 75 /min [facility] Body temperature 2020-09-08 19:11:00 36.28 [facility] Respiratory rate 2020-09-08 19:11:00 16 /min [facility] Body height 2020-09-08 19:11:00 [facility] Body weight 2020-09-08 19:11:00 115.486 [facility] BMI 2020-09-08 19:11:00 41.09 kg[facility]m2 [facility] Oxygen saturation in 2020-09-08 19:11:00 97 /min [facility] of Arterial blood by Medicine Pulse oximetry Systolic blood 2020-04-07 18:19:00 119 mm[Hg] [facility] Medicine Diastolic blood 2020-04-07 18:19:00 81 mm[Hg] [facility] Medicine Heart rate 2020-04-07 18:19:00 87 /min [facility] Body temperature 2020-04-07 18:19:00 37.11 [facility] Respiratory rate 2020-04-07 18:19:00 16 /min [facility] Body height 2020-04-07 18:19:00 167.6 [facility] Body weight 2020-04-07 18:19:00 111.857 [facility] BMI 2020-04-07 18:19:00 39.80 kg/m2 [facility] of Medicine Oxygen saturation in 2020-04-07 18:19:00 97 /min [facility] of Arterial blood by Medicine Pulse oximetry Systolic blood 2020-04-07 18:19:00 119 mm[Hg] [facility] Medicine Diastolic blood 2020-04-07 18:19:00 81 mm[Hg] [facility] Medicine Heart rate 2020-04-07 18:19:00 87 /min [facility] Body temperature 2020-04-07 18:19:00 37.11 [facility] Respiratory rate 2020-04-07 18:19:00 16 /min [facility] Body height 2020-04-07 18:19:00 167.6 cm [facility] Body weight 2020-04-07 18:19:00 111.857 [facility] BMI 2020-04-07 18:19:00 39.80 kg/m2 [facility] Oxygen saturation in 2020-04-07 18:19:00 97 /min [facility] of Arterial blood by Medicine Pulse oximetry Systolic blood 2019-09-02 16:53:00 155 mm[Hg] [facility] Medicine Diastolic blood 2019-09-02 16:53:00 84 mm[Hg] [facility] Medicine Heart rate 2019-09-02 16:53:00 59 /min [facility] Body temperature 2019-09-02 16:53:00 36.89 [facility] Respiratory rate 2019-09-02 16:53:00 16 /min [facility] Body height 2019-09-02 16:53:00 167.6 cm [facility] Body weight 2019-09-02 16:53:00 93.985 kg [facility] BMI 2019-09-02 16:53:00 33.44 kg/m2 [facility] Oxygen saturation in 2019-09-02 16:53:00 99 /min [facility] of Arterial blood by Medicine Pulse oximetry Systolic blood 2019-09-02 16:53:00 155 mm[Hg] [facility] Medicine Diastolic blood 2019-09-02 16:53:00 84 mm[Hg] [facility] Medicine Heart rate 2019-09-02 16:53:00 59 /min [facility] Medicine Body temperature 2019-09-02 16:53:00 36.89 [facility] Respiratory rate 2019-09-02 16:53:00 16 /min [facility] Body height 2019-09-02 16:53:00 167.6 cm [facility] Body weight 2019-09-02 16:53:00 93.985 kg [facility] BMI 2019-09-02 16:53:00 33.44 kg/m2 [facility] Oxygen saturation in 2019-09-02 16:53:00 99 /min [facility] Arterial blood by [facility] Pulse oximetry Procedures This patient has no known procedures. Plan of Care Planned Activity Planned Date Details Comments Source Future Scheduled 2022-06-08 HEPATITIS B VACCINES [facility] Test 12:55:41 (1 of 3 - 3-dose Hospital series) [code = HEPATITIS B VACCINES (1 of 3 - 3-dose series)] Future Scheduled 2022-06-08 COVID-19 VACCINE (#1) [facility] Test 12:55:41 [code = COVID-19 Hospital VACCINE (#1)] Future Scheduled 2022-06-08 Screening for [facility] Test 12:55:41 malignant neoplasm of Hospit al cervix (procedure) [code = 513058331] Future Scheduled 2022-06-08 BREAST CANCER [facility] Test 12:55:41 SCREENING [code = Hospital BREAST CANCER SCREENING] Future Scheduled 2022-06-08 COLONOSCOPY SCREENING [facility] Test 12:55:41 [code = COLONOSCOPY Hospital SCREENING] Future Scheduled 2022-06-08 INFLUENZA VACCINE Method ist Test 12:55:41 [code = INFLUENZA Hospital VACCINE] Future Scheduled 2021-09-06 COVID-19 VACCINE (1) [facility] Test 13:16:21 [code = COVID-19 Hospital VACCINE (1)] Future Scheduled 2021-09-06 Screening for [facility] Test 13:16:21 malignant neoplasm of Hospit al cervix (procedure) [code = 126121812] Future Scheduled 2021-09-06 INFLUENZA VACCINE Method ist Test 13:16:21 [code = INFLUENZA Hospital VACCINE] Diagnostic Test 2020-09-08 CBC W/AUTO DIFF WITH Expected: [facility] Pending 00:00:00 PLATELETS [code = 09/08/2020, of Medicin e 54499-5] Expires: 03/08/2021 Diagnostic Test 2020-09-08 COMPREHENSIVE Expected: [facility] [place] Pending 00:00:00 METABOLIC PANEL [code 09/08/2020, of Med icine = 92233-9] Expires: 03/08/2021 Diagnostic Test 2020-09-08 C-REACTIVE PROTEIN Expected: [facility] Pending 00:00:00 [code = 1987-] 09/08/2020, of Medicine Expires: 03/08/2021 Diagnostic Test 2020-05-07 COMPREHENSIVE Expected: [facility] [place] Pending 00:00:00 METABOLIC PANEL [code 05/07/2020, of Med icine = 92958-4] Expires: 10/05/2020 Diagnostic Test 2020-05-07 C-REACTIVE PROTEIN Expected: [facility] Pending 00:00:00 [code = 1987-] 05/07/2020, of Medicine Expires: 10/05/2020 Diagnostic Test 2020-04-07 CBC W/AUTO DIFF WITH Expected: [facility] Pending 00:00:00 PLATELETS [code = 04/07/2020, of Medicin e 44687-0] Expires: 10/05/2020 Future Scheduled TETANUS SHOT (ADULT) [facility] Test [code = TETANUS SHOT of Medi cine (ADULT)] Future Scheduled BMI FOLLOW UP PLAN [facility] [place] Test [code = BMI FOLLOW UP of Med icine PLAN] Future Scheduled HIV SCREENING [code = [facility] Test HIV SCREENING] of Medicine Future Scheduled [facility] of Medicine FOLLOW UP [code = CERVICAL CANCER SCREENING 3 YEAR FOLLOW UP] Future Scheduled FLU VACCINE > 6 [facility] C ollege Test MONTHS [code = FLU of Medici ne VACCINE > 6 MONTHS] Future Scheduled ZOSTER VACCINE (1 of [facility] Test 2) [code = ZOSTER of Medicin e VACCINE (1 of 2)] Future Scheduled COVID-19 Vaccine [facility] Test Evaluation [code = of Medici ne COVID-19 Vaccine Evaluation] Future Scheduled MAMMOGRAM ANNUAL [facility] Test [code = MAMMOGRAM of Medicin e ANNUAL] Future Scheduled TETANUS SHOT (ADULT) [facility] [place] Test [code = TETANUS SHOT of Medi cine (ADULT)] Future Scheduled BMI FOLLOW UP PLAN [facility] [place] Test [code = BMI FOLLOW UP of Med icine PLAN] Future Scheduled HIV SCREENING [code = [employer] Test HIV SCREENING] of Medicine Future Scheduled CERVICAL CANCER [facility] C ollege Test SCREENING 3 YEAR of Medicine FOLLOW UP [code = CERVICAL CANCER SCREENING 3 YEAR FOLLOW UP] Future Scheduled FLU VACCINE > 6 [facility] C [facility] Test MONTHS [code = FLU of Medici ne VACCINE > 6 MONTHS] Future Scheduled MAMMOGRAM ANNUAL [facility] Test [code = MAMMOGRAM of Medicin e ANNUAL] Future Scheduled TETANUS SHOT (ADULT) [facility] Test [code = TETANUS SHOT of Medi cine (ADULT)] Future Scheduled BMI FOLLOW UP PLAN [facility] Test [code = BMI FOLLOW UP of Med icine PLAN] Future Scheduled HIV SCREENING [code = [employer] Test HIV SCREENING] of Medicine Future Scheduled CERVICAL CANCER [facility] C ollege Test SCREENING 3 YEAR of Medicine FOLLOW UP [code = CERVICAL CANCER SCREENING 3 YEAR FOLLOW UP] Future Scheduled FLU VACCINE > 6 [facility] Test MONTHS [code = FLU of Medici ne VACCINE > 6 MONTHS] Future Scheduled MAMMOGRAM ANNUAL [facility] Test [code = MAMMOGRAM of Medicin e ANNUAL] Encounters Start End Encounter Admission Attending Care Care Encounter Source Date/Time Date/Time Type Type Clinicians Facility Department ID 2021-04-04 2021-04-04 Outpatient MONSE PRUITT [facility] [id number] [facility] 13:16:17 13:28:57 [facility]in e 2021-03-28 2021-03-28 Outpatient MONSE PRUITT [id number] [facility] 09:37:21 09:58:26 [facility] of Medicin e 2021-03-22 2021-03-22 Outpatient MONSE HUANG [facility] [id number] [facility] 10:37:37 10:47:12 DAVID [facility] of Medicin e 2021-03-17 2021-03-17 Outpatient MONSE HUANG [facility] [id number] [facility] 14:20:35 14:35:25 DAVID [facility] of Medicin e 2021-03-16 2021-03-16 Outpatient MONSE HUANG [facility] [id number] [facility] 11:44:03 11:52:25 DAVID [facility] of Medicin e 2021-03-14 2021-03-14 Outpatient SONAL [facility] [id number] [facility] 17:02:24 17:53:45 DESMONDJOSE [facility] of Medicin e 2021-03-11 2021-03-11 Outpatient RONI [facility] [id number] [facility] 10:00:21 10:10:17 DIPABEJose Stephensg e of Medicin e 2020-10-21 2020-10-21 Patient Car [facility] [id number] 00:00:00 00:00:00 Outreach [facility] [id number] [facility] [id number] IVET [id number] 2020-09-08 2020-09-08 Office Bhairavaras BCM [id number] 12:48:29 16:15:07 Visit u, [place] [facility] [id number] [place] [id number] [id number] 370 2020-09-08 2020-09-08 Office Bhairavaras BCM 1.2.840.114 [id number] [facility] 12:48:29 16:15:07 Visit u, [place] AMBULATOR [id number] [employer] [place] [id number] of [id number] [facility] 370 e 2020-04-07 2020-04-07 Office Bhairavaras BCM 1.2.840.114 [id number] 13:05:16 13:35:16 Visit u, [place] AMBULATOR [id number] [place] [id number] 2020-04-07 2020-04-07 Office Bhairavaras BCM 1.2.840.114 [id number] [facility] 13:05:16 13:35:16 Visit u, [place] AMBULATOR [id number] [employer] [place] [id number] of [id number] [facility] 370 e 2019-09-02 2019-09-02 Office Bhairavaras BCM 1.2.840.114 [id number] 10:34:12 11:59:44 Visit u, [place] AMBULATOR [id number] [place] [id number] 370 2019-09-02 2019-09-02 Office [facility] 1.2.840.114 [id number] [facility] 10:34:12 11:59:44 Visit u, [place] AMBULATOR [id number] [place] [id number] of [id number] [facility] 370 e Results This patient has no known results.
[2022-06-21 18:31] LABS: Hematocrit 43.7 % (36.0-45.0); Lymphocytes % 23.3 % (15.3-44.8); MCV 92.2 fL (80-100); MPV 7.8 fL (7.6-11.3); RBC Red Blood Cell Count 4.74 M/uL (3.86-4.86)
[2022-06-21 18:40] LABS: Bilirubin Total 0.9 mg/dL (0.2-1.0); Potassium 4.4 mmol/L (3.5-5.1); Protein, Total 7.9 g/dL (6.4-8.2)
[2022-06-21] MEDS ORDERED: MORPHINE 4 MG/ML SYR ONE ×2 (18:40→20:07)
[2022-06-21] MEDS ORDERED: NA CHLORIDE 0.9% 1,000 ML ONE (18:40)
[2022-06-21] MEDS ORDERED: ONDANSETRON 4 MG/2 ML VIAL ONE (18:40)
[2022-06-21] MEDS ORDERED: FAMOTIDINE 20 MG/2 ML VIAL IV ONE (18:41)
--- NOTE | 2022-06-21 19:38 | RAD REPORT ---
EXAM DESCRIPTION: CTAbdomen Pelvis W Contrast - 06/21/2022 7:03 pm CLINICAL HISTORY: Abdominal pain. mid, upper abdomen pain COMPARISON: Abdomen Pelvis W Contrast dated 09/23/2019; Abdomen Pelvis W Contrast dated 8; Abdomen Pelvis W Contrast dated 12/14/2017 TECHNIQUE: Biphasic CT imaging of the abdomen and pelvis was performed with 100 ml non-ionic IV cont rast. All CT scans are performed using dose optimization technique as appropriate and may include automated exposure control or mA/KV adjustment according to patient size. FINDINGS: The lung bases are clear.Cholecystectomy clips. The liver, spleen, pancreas, adrenal glands and kidneys are within normal limits. No bowel obstruction, free air, free fluid or abscess. Moderate fat containing ventral hernia. The ap pendix is normal. Sigmoid diverticulosis without diverticulitis. No evidence of significant lymphaden opathy. No suspicious bony findings. IMPRESSION: Moderate fat containing ventral hernia. Sigmoid diverticulosis without diverticulitis.
--- NOTE | 2022-06-21 20:19 | EDPHYS ---
Physician Documentation [facility] Name: Niki Martino Age: 47 yrs Sex: Female : 1975 Arrival Date: 06/21/2022 Time: 16:23 Bed 6 Private MD: MAKENZIE Physician Humza Hill HPI: 06/21 18:10 This 47 yrs old Female presents to ER via Ambulatory with complaints of Abdominal Pain. cp 18:10 The patient presents with abdominal pain mid and upper abdomen. Onset: The cp symptoms/episode began/occurred today, about noon. The symptoms do not radiate. Associated signs and symptoms: Pertinent positives: nausea and vomiting, Pertinent negatives: chest pain, constipation, diarrhea, fever, vomiting blood. The symptoms are described as constant. Historical: - Allergies: 16:35 Augmentin; ll1 16:35 BENZOYL PEROXIDE; ll1 16:35 Cleocin; ll1 16:35 Codeine; ll1 - PMHx: 16:35 Diabetes - NIDDM; Hypothyroidism; Hyperlipidemia; Migraines; Arthritis; ll1 - PSHx: 16:35 L foot SX, heel spur; ll1 - Immunization history:: Client reports receiving the 2nd dose of the Covid vaccine. - Social history:: Smoking status: Patient denies any tobacco usage or history of. ROS: 18:15 Constitutional: Negative for body aches, chills, fever, poor PO intake. cp 18:15 Eyes: Negative for injury, pain, redness, and discharge. cp 18:15 Cardiovascular: Negative for chest pain, palpitations. 18:15 Respiratory: Negative for cough, shortness of breath, wheezing. 18:15 Abdomen/GI: Positive for abdominal pain, of the mid and mid upper abdomen, Negative for vomiting, diarrhea, constipation. 18:15 Back: Negative for pain at rest, pain with movement. 18:15 Neuro: Negative for altered mental status, headache, numbness, syncope, weakness. 18:15 All other systems are negative. Vital Signs: 16:33 BP 150 / 92; Pulse 82; Resp 17; Temp 97.6; Pulse Ox 99% ; Weight 113.4 kg; Height 5 ft. ll1 6 in. (167.64 cm); Pain 9/10; 18:51 BP 132 / 70; Pulse 72; Pulse Ox 99% on R/A; ko1 19:50 BP 129 / 75; Pulse 66; Resp 16; Pulse Ox 100% ; jj7 20:56 BP 141 / 82; Pulse 61; Resp 17; Pulse Ox 100% ; Pain 2/10; jj7 16:33 Body Mass Index 40.35 (113.40 kg, 167.64 cm) ll1 MDM: 18:17 Patient medically screened. [facility] 06/21 17:57 Order name: CBC with Diff; Complete Time: 19:41 cp 06/21 19:42 Interpretation: Normal except: WBC 13.00. cp 06/21 17:57 Order name: CMP; Complete Time: 19:41 cp 06/21 19:42 Interpretation: Normal except: GLUC 124; AST 50; GLOB 3.9; A/G 1.0. cp 06/21 17:57 Order name: Lipase; Complete Time: 19:41 cp 06/21 19:42 Interpretation: LIP 65; Reviewed. cp 06/21 17:57 Order name: CT Abd/Pelvis - IV Contrast Only; Complete Time: 19:41 cp 06/21 19:43 Interpretation: Report reviewed. cp 06/21 17:57 Order name: IV Saline Lock; Complete Time: 18:15 cp 06/21 17:57 Order name: Labs collected and sent; Complete Time: 18:15 cp Administered Medications: 18:42 Drug: NS 0.9% 1000 ml Route: IV; Rate: 1 bolus; Site: right antecubital; ko1 19:50 Follow up: IV Status: Completed infusion jj7 18:42 Drug: Zofran (Ondansetron) 4 mg Route: IVP; Site: right antecubital; ko1 18:50 Drug: Pepcid (famotidine) 20 mg Route: IVP; Site: right antecubital; ko1 18:50 Drug: morphine 4 mg Route: IVP; Infused Over: 4 mins; Site: right antecubital; ko1 20:07 Drug: morphine 4 mg Route: IVP; Infused Over: 4 mins; Site: right antecubital; jj7 Disposition: 06/22 09:24 Co-signature as Attending Physician, Humza Hill MD I agree with the assessment and brittni plan of care. Disposition Summary: 06/21/22 20:19 Discharge Ordered Location: Home cp Problem: new cp Symptoms: have improved cp Condition: Stable cp Diagnosis - Ventral hernia without obstruction or gangrene cp Followup: cp - With: Hugo Weber MD - When: 1 - 2 days - Reason: Recheck today's complaints Discharge Instructions: - Discharge Summary Sheet cp - Ventral Hernia cp Forms: - Medication Reconciliation Form cp - Thank You Letter cp - Antibiotic Education cp - Prescription Opioid Use cp Prescriptions: - Diclofenac Sodium 75 mg Oral Tablet Sustained Release - take 1 tablet by ORAL route 2 times per day; 30 tablet; Refills: 0, Product cp Selection Permitted Signatures: Dispatcher [employer] EDHumza Dejesus MD MD cha Page, Corey, PA PA cp Lewis, Lynsay RN RN ll1 Shaye Guillen RN RN ko1 Galileo Cr RN RN jj7
--- NOTE | 2022-06-21 20:19 | ER ---
Nurse's Notes [facility] Name: Niki Matrino Age: 47 yrs Sex: Female : 1975 Arrival Date: 06/21/2022 Time: 16:23 Bed 6 Private MD: Diagnosis: Ventral hernia without obstruction or gangrene Presentation: 06/21 16:33 Chief complaint: Patient states: Epigastric pain started today at noon. + nausea and ll1 dry heaves. Coronavirus screen: Vaccine status: Patient reports receiving the 2nd dose of the covid vaccine. Client denies travel out of the [place] in the last 14 days. At this time, the client does not indicate any symptoms associated with coronavirus-19. Ebola Screen: Patient denies travel to an Ebola-affected area in the 21 days before illness onset. Initial Sepsis Screen: Does the patient meet any 2 criteria? No. Patient's initial sepsis screen is negative. Does the patient have a suspected source of infection? Yes: Acute abdominal pain. Risk Assessment: Do you want to hurt yourself or someone else? Patient reports no desire to harm self or others. Onset of symptoms was June 21, 2022. 16:33 Method Of Arrival: Ambulatory ll1 16:33 Acuity: LUZMARIA 3 ll1 Triage Assessment: 16:36 General: Appears uncomfortable, Behavior is cooperative, appropriate for age. Pain: ll1 Complains of pain in abdomen Pain currently is 9 out of 10 on a pain scale. GI: Abdomen is round Reports upper abdominal pain, nausea, vomiting. Historical: - Allergies: 16:35 Augmentin; ll1 16:35 BENZOYL PEROXIDE; ll1 16:35 Cleocin; ll1 16:35 Codeine; ll1 - PMHx: 16:35 Diabetes - NIDDM; Hypothyroidism; Hyperlipidemia; Migraines; Arthritis; ll1 - PSHx: 16:35 L foot SX, heel spur; ll1 - Immunization history:: Client reports receiving the 2nd dose of the Covid vaccine. - Social history:: Smoking status: Patient denies any tobacco usage or history of. Screenin:51 Abuse screen: Denies threats or abuse. Denies injuries from another. Nutritional ko1 screening: No deficits noted. Tuberculosis screening: No symptoms or risk factors identified. Fall Risk None identified. Assessment: 18:51 General: Appears in no apparent distress. uncomfortable, Behavior is calm, cooperative, ko1 appropriate for age. Pain: Complains of pain in abdomen. Neuro: No deficits noted. Cardiovascular: No deficits noted. Respiratory: No deficits noted. GI: Bowel sounds present X 4 quads. Abd is soft Abdomen is tender to palpation X 4 quads. Reports nausea. : No deficits noted. EENT: No deficits noted. Derm: No deficits noted. Musculoskeletal: No deficits noted. Vital Signs: 16:33 BP 150 / 92; Pulse 82; Resp 17; Temp 97.6; Pulse Ox 99% ; Weight 113.4 kg; Height 5 ft. ll1 6 in. (167.64 cm); Pain 9/10; 18:51 BP 132 / 70; Pulse 72; Pulse Ox 99% on R/A; ko1 19:50 BP 129 / 75; Pulse 66; Resp 16; Pulse Ox 100% ; jj7 20:56 BP 141 / 82; Pulse 61; Resp 17; Pulse Ox 100% ; Pain 2/10; jj7 16:33 Body Mass Index 40.35 (113.40 kg, 167.64 cm) ll1 ED Course: 16:23 Patient arrived in ED. as 16:35 Triage completed. ll1 16:36 Arm band placed on. ll1 17:04 Humza Knox PA is PHCP. cp 17:04 Humza Hill MD is Attending Physician. cp 18:15 Initial lab(s) drawn, by me, sent to lab. Inserted saline lock: 20 gauge in right em1 antecubital area, using aseptic technique. Blood collected. 18:36 Shaye Guillen, CY is Primary Nurse. ko1 18:51 Patient has correct armband on for positive identification. Bed in low position. Call ko1 light in reach. Side rails up X 1. Pulse ox on. NIBP on. Door closed. Noise minimized. Warm blanket given. Head of bed lowered. 19:04 CT Abd/Pelvis - IV Contrast Only In Process Unspecified. EDMS 20:18 Hugo Weber MD is Referral Physician. cp 20:37 IV discontinued, intact, bleeding controlled, No redness/swelling at site. Pressure jj7 dressing applied. 20:37 No provider procedures requiring assistance completed. jj7 Administered Medications: 18:42 Drug: NS 0.9% 1000 ml Route: IV; Rate: 1 bolus; Site: right antecubital; ko1 19:50 Follow up: IV Status: Completed infusion jj7 18:42 Drug: Zofran (Ondansetron) 4 mg Route: IVP; Site: right antecubital; ko1 18:50 Drug: Pepcid (famotidine) 20 mg Route: IVP; Site: right antecubital; ko1 18:50 Drug: morphine 4 mg Route: IVP; Infused Over: 4 mins; Site: right antecubital; ko1 20:07 Drug: morphine 4 mg Route: IVP; Infused Over: 4 mins; Site: right antecubital; jj7 Medication: 20:37 VIS not applicable for this client. jj7 Outcome: 20:19 Discharge ordered by . quang 20:38 Condition: improved jj7 20:56 Discharged to home via wheelchair, with significant other. jj7 20:56 Discharge instructions given to patient, family, Instructed on discharge instructions, follow up and referral plans. medication usage, Demonstrated understanding of instructions, follow-up care, medications, Prescriptions given X 1. 20:58 Patient left the ED. jj7 Signatures: Dispatcher [employer] EDMS Isabela Weber Eric em1 Humza Knox PA PA cp Lewis, Lynsay, RN RN ll1 Shaye Guillen RN RN ko1 Galileo Cr RN RN jj7
[2022-06-21 21:39] VITALS: TEMP 97.6
[2022-06-21 21:42] VITALS: O2SAT 100
[2022-06-21 21:43] VITALS: BP 141/82
== END 2022-06-21 20:58 | disposition home or self-care (01) ==
LOC: ER 16:22
DX: K43.9 Ventral hernia without obstruction or gangrene (principal); Z88.1 Allergy status to other antibiotic agents; Z88.5 Allergy status to narcotic agent; Z88.8 Allergy status to other drugs, medicaments and biological substances
CPT/HCPCS: 96361; 85025; 36415; 83690; 80053; 74177; 96375; 96374; 99284; Q9967; J7030; J2405

== ENCOUNTER 2022-07-03 08:09 | Observation (INO) | payer BC ==
[2022-07-03] MEDS ORDERED: CEFAZOLIN SODIUM 1 GM/VIAL ONE (08:33)
[2022-07-03] MEDS ORDERED: NA CHLORIDE 0.9% 1,000 ML ONE (08:33)
[2022-07-03] MEDS ORDERED: LIDOCAINE 2% MPF 5 ML VIAL ONE (08:41)
[2022-07-03] MEDS ORDERED: ONDANSETRON 4 MG/2 ML VIAL ONE ×2 (08:41→11:27)
[2022-07-03] MEDS ORDERED: FENTANYL CITR 100 MCG/2 ML ONE (08:41)
[2022-07-03] MEDS ORDERED: propofoL 200 MG/20 ML VIAL IV ONE (08:41)
[2022-07-03] MEDS ORDERED: MIDAZOLAM HCL 2 MG/2 ML INJ ONE (08:42)
[2022-07-03] MEDS ORDERED: ROCURONIUM 50 MG/5 ML VIAL IV ONE (08:42)
[2022-07-03] MEDS ORDERED: CIPROFLOXACIN 400mg IV 400 MG/200 ML BAG IV ONE (08:57)
--- NOTE | 2022-07-03 10:10 | RAD REPORT ---
EXAM DESCRIPTION: RAD - Chest Pa And Lat (2 Views) - 07/03/2022 8:11 am CLINICAL HISTORY: Pre op pending hernia surgery Chest pain. COMPARISON: Chest Pa And Lat (2 Views) dated 03/14/2021; Chest Pa And Lat (2 Views) dated 03/03/2021; C hest Single View dated 10/01/2020; Chest Single View dated 09/23/2019 FINDINGS: The lungs are clear. The heart is normal in size. No displaced fractures. IMPRESSION: No acute or concerning finding suspected.
[2022-07-03] MEDS ORDERED: GLYCOPYRROLATE 0.2 MG/ML SYR ONE ×2 (10:17→10:38)
[2022-07-03] MEDS ORDERED: KETOROLAC 30 MG/ML INJ ONE (10:36)
[2022-07-03] MEDS ORDERED: NEOSTIGMINE 1 MG/ML -5 ML ONE (10:38)
[2022-07-03] MEDS ORDERED: Mastisol Adhesive Liq ONE (10:49)
--- NOTE | 2022-07-03 10:59 | P.BOP ---
Preoperative diagnosis: ventral incisional hernia, abd pain Postoperative diagnosis: Multiple incisional hernias ( epigastric and lower abd ventral hernias), ad Primary procedure: 1. Laparoscopic repair of incisional lower abd ventral hernia with mesh Secondary procedure: 2. Laparoscopic repair of incisional epigastric ventral hernia with mesh Other procedure(s): 3. Laparoscopic lysis of adhesions Stem Teacher: BRIDGET RIOS (ELECTRONIC GLUER) Estimated blood loss: <20cc Specimen: sac x 2 Findings: incarcerated omentum l Anesthesia: General Complications: None Implants: large ventralex mesh for lower abdomen and medium ventralex for epigastric Transferred to: Recovery Room Condition: Good
[2022-07-03] MEDS ORDERED: TRAMADOL 37.5mg/APAP 325mg PER TAB ONE (13:22)
[2022-07-03 14:41] LABS: SARS-CoV-2 Antigen Rapid Res Negative (Negative)
[2022-07-03] MEDS: MORPHINE 4 MG/ML SYR IV PRN ×4 (15:53→23:12)
--- OUTSIDE RECORDS SUMMARY | 2022-07-03 16:08 | XMS REPORT | Continuity of Care Document ---
:1975 Author Organization [facility] t Address [address] [place] [address] Care Team Providers Name Role Phone Houston Sahu MD Primary Care Physician DESMOND PRUITT Attending Clinician Unavailable DAVID HUANG Attending Clinician Unavailable MED TAMAYO Attending Clinician Unavailable Antonio Yoon DO Attending Clinician Izabel RIVERA, Pricilla Canales Attending Clinician [phone] Payers Payer Name Policy Type Policy Number Effective Date Expiration Date S ouryan OPEN ACCESS PLUS [id number] 2019 - [employer] 00:00:00 GENERIC PPO - [id number] 2013 GENERIC PAYOR 00:00:00 [employer] FIRST TPA [id number] - PPO NEXT OPEN ACCESS [id number] HMO/POS/EPO/PPO - AETNA Problems Condition Condition Condition [...] Visual Disease [facility] Menstrual Menstrual Disease Active Met hodi disorder disorder [facility] Allergies, Adverse Reactions, Alerts Allergy Allergy Status Severity Reaction(s) Onset Inactive Treating Comm ents Source Name Type Date Date Clinician Amoxicil Propensi Active [facility] prieto-Pot ty to 11-23 College Clavulan adverse 00:00: of ate reaction 00 Medicin s to e drug Benzyl Propensi Active [facility] Benzoate ty to 4-20 College adverse 00:00: of reaction 00 Medicin s to e drug Clindamy Propensi Active [facility] suresh/Linc ty to 20 [place] omycin adverse 00:00: of reaction 00 Medicin s to e drug Codeine Propensi Active [facility] ty to 4-20 College adverse [...] Date Stop Date Source Maternal Breast cancer [facility] Maternal Hyperlipidemia [facility] Maternal Stroke [facility] Natural mother Lung cancer [facility] Natural mother Other [facility] Natural mother Thyroid disease [facility] Paternal aunt Alzheimer's disease [facility] Paternal aunt Diabetes [facility] Paternal Heart disease [facility] [place] Natural sister Heart attack [facility] Natural father Multiple sclerosis [facility] Natural father Other [facility] Maternal aunt Hyperlipidemia [facility] Maternal aunt Hypertension [facility] Maternal aunt Psoriasis [facility] Social History Social Habit Start Date Stop Date Quantity Comments Source History of Smoker [facility] of tobacco use Medicine History [facility] Alcohol Frequency Hospita l History SDHI [facility] Alcohol Std Hospital Drinks History [facility] Alcohol [facility] Alcohol intake 2016-06-16 2016-06-16 Current drinker [facility] 00:00:00 00:00:00 of alcohol Hospital (finding) Alcohol Comment 2016-06-16 2016-06-16 month [facility] 00:00:00 00:00:00 Hospital Tobacco use and 2016-06-16 2016-06-16 Smokeless tobacco [facility] exposure 00:00:00 00:00:00 non-user Hospital Sex Assigned At [birth year] [facility] 00:00:00 00:00:00 Hospital Smoking Status Start Date Stop Date Source Former smoker 2020-09-08 00:00:00 2020-09-08 00:00:00 [facility] Medicine Medications Ordered Filled Start Stop Current Ordering Indication Dosage Frequency Signature Comments Components Source Medication Medication Date Date Medication? Clinician (SIG) Name Name rosuvastati Yes 10mg Take 10 mg [facility] n (CRESTOR) 2-03 by mouth [place] 10 MG 19:20: daily. of tablet 04 Medicin e alprazolam Yes .5mg Take 0.5 Vera saurabh (XANAX) 0.5 2-03 mg by College [...] 04 Medicin e Lisdexamfet Yes Take by Vera saurabh amine 2-03 mouth. College Dimesylate 19:20: of (VYVANSE) 04 Medicin 50 MG CAPS e Magnesium Yes Take by [facility] Oxide 2-03 mouth. [place] (MAGOX 400 19:20: of OR) 04 Medicin e buPROPion Yes 150mg Take 150 Vera saurabh (WELLBUTRIN 2-03 mg by [facility]) 19:20: mouth two of 150 MG SR 04 times Medicin tablet daily. e amphetamine Yes 10mg Take 10 mg Al[facility]so -dextroamph 2-03 by mouth [place] etamine 19:20: daily. of (ADDERALL, 04 Medicin 10MG,) 10 e MG tablet FOLIC ACID Yes 2mg Take 2 mg [facility] OR 2-03 by mouth. [place] 19:20: of 04 Medicin e propranolol Yes 40mg Take 40 mg [facility] (INDERAL) 2-03 by mouth 3 [place] 40 MG 19:20: times of tablet 04 daily. Medicin e amobarbital Yes 500mg Inject 500 [facility] (AMYTAL 2-03 mg into College SODIUM) 500 19:20: the vein of MG 04 once. Medicin injection e meloxicam Yes [id number] 15mg Take 1 Vera saurabh (MOBIC) 15 1-12 Tablet by [place] MG tablet 00:00: mouth of 00 daily. Medicin e methotrexat Yes [id number] 15mg Take 6 [facility] e 1-12 Tablets by [place] (RHEUMATREX 00:00: mouth of ) 2.5 MG 00 every 7 Medicin tablet days. e buPROPion Yes 150mg Take 150 Vera saurabh (WELLBUTRIN 9-02 mg by [place] [facility]) 18:33: mouth two of 150 MG SR 02 times Medicin tablet daily. e amphetamine Yes 10mg Take 10 mg [facility] -dextroamph 9-02 by mouth [place] etamine 18:33: daily. of (ADDERALL, 02 Medicin 10MG,) 10 e MG tablet FOLIC ACID Yes 2mg Take 2 mg [facility] OR 9-02 by mouth. [place] 18:33: of 02 Medicin e propranolol Yes 40mg Take 40 mg [facility] (INDERAL) 9-02 by mouth 3 [place] 40 MG 18:33: times of tablet 02 daily. Medicin e amobarbital 2020-0 Yes 500mg Inject 500 [facility] (AMYTAL 9- mg into College SODIUM) 500 18:33: the vein of MG 02 once. Medicin injection e rosuvastati 2020-0 Yes 10mg Take 10 mg Alfonso n (CRESTOR) 04-07 by mouth [place] 10 MG 18:25: daily. of tablet 04 Medicin e alprazolam 2020-0 Yes .5mg Take 0.5 Vera saurabh (XANAX) 0.5 -02 mg by [place] MG tablet 18:25: mouth as of 04 [...] Medicin e Lisdexamfet 2019-0 Yes Take by Vera saur[facility] amine 04-07 mouth. [place] Dimesylate 18:25: of (VYVANSE) 04 Medicin 50 MG CAPS e Adalimumab 2020-0 Yes [id number] 40mg Inject 40 [facility] 40 MG/0.4ML 9-02 mg into Colle ge PNKT 00:00: the skin of 00 every 7 Medicin days. e methotrexat 2020-0 Yes [id number] 15mg Take 6 B aylor e - Tabs by [place] (RHEUMATREX 00:00: mouth of ) 2.5 MG 00 every 7 Medicin tablet days. e Adalimumab 2020-0 Yes [id number] 40mg Inject 40 [facility] 40 MG/0.4ML 9-02 mg into Colle ge PNKT 00:00: the skin of 00 every 7 Medicin days. e methotrexat 2020-0 2020- No [id number] 20mg Take 8 [facility] e 6-29 - Tabs by [place] (RHEUMATREX 00:00: 00:00 mouth of ) 2.5 MG 00 :00 every 7 Medicin tablet days. e Diclofenac 2020-0 [id number] 1% Place 1 [facility] Sodium 1 % 5-22 Percent Colleg e GEL 00:00: onto the of 00 skin two Medicin times e daily. Diclofenac 2020-0 Yes [id number] 1% Place 1 [facility] Sodium 1 % 5-22 Percent Colleg e GEL 00:00: onto the of 00 skin two Medicin times e daily. meloxicam 2020-0 Yes [id number] 15mg Take 1 Tab [facility] (MOBIC) 15 5-22 by mouth [...] azithromyci 2020-0 Yes 250mg Take 1 Tab [facility] n 2-12 by mouth College (ZITHROMAX 00:00: daily. Day o f Z-CJ) 250 00 1- take 2 Medi suresh MG tablet pills once e a day , day 2-5 take 1 pill every day rosuvastati 2019-0 Yes 10mg Take 10 mg [facility] n (CRESTOR) 1-28 by mouth [place] 10 MG 16:55: daily. of tablet 14 Medicin e alprazolam 2019-0 Yes .5mg Take 0.5 Vera saurabh (XANAX) 0.5 1-28 mg by College MG tablet 16:55: mouth as of 14 needed. Medicin e Dulaglutide 2019-0 Yes Inject [facility] (TRULICITY) 1-28 into the [place] [facility] 0.75 16:55: skin. of MG/0.5ML 14 Medicin SOPN e montelukast 2020-0 Yes 10mg Take 10 mg [facility] (SINGULAIR) 1-28 by mouth [place] 10 MG 16:55: daily. of tablet 14 Medicin e escitalopra 2019-0 Yes 10mg Take 10 mg [facility] m (LEXAPRO) 09-02 by mouth [place] 10 MG 16:55: daily. of tablet 14 Medicin e Lisdexamfet 2020-0 Yes Take by Vera saurabh amine 09-02 mouth. [place] Dimesylate 16:55: of (VYVANSE) 14 Medicin 50 MG CAPS e Magnesium 2020-0 Yes Take by [facility]ide - mouth. [place] (MAGOX 400 16:55: of OR) 14 Medicin e Magnesium 2020-0 Yes Take by [facility] Oxide - mouth. [place] (MAGOX 400 16:55: of OR) 14 Medicin e etanercept 2019-0 Yes 50mg Inject 50 [facility] (ENBREL 1-28 mg into [place] SURECLICK) 00:00: the skin of 50 MG/ML [...] [facility] 120 MG/ML 9-24 mg into [place] SOAJ 00:00: the skin of 00 every 30 Medicin days. e EMGALITY Yes 120mg Inject 120 [facility] 120 MG/ML 9-24 mg into [place] SOAJ 00:00: the skin of 00 every 30 Medicin days. e EMGALITY Yes 120mg Inject 120 [facility] 120 MG/ML 9-24 mg into [place] SOAJ 00:00: the skin of 00 every 30 Medicin days. e meloxicam Yes TAKE 1 Method i (MOBIC) 15 1-[address] mg tablet 00:00: MOUTH Hospita 00 DAILY l meloxicam Yes TAKE 1 [facility] i (MOBIC) 15 1-[address] mg tablet 00:00: MOUTH Hospita 00 DAILY l meloxicam 2019-0 Yes TAKE 1 [facility] i (MOBIC) 15 1-[address] mg tablet 00:00: MOUTH Hospita 00 DAILY l methotrexat 2018-0 Yes 20mg Take 8 [facility] e 5-22 Tabs by [place] (RHEUMATREX 00:00: mouth of ) 2.5 MG [...] 88 mcg [facility] ne 4-04 daily. [place] (SYNTHROID) 00:00: of 125 MCG 00 Medicin tablet e levothyroxi 2018-0 Yes 75ug 75 mcg [facility] ne 4-04 daily. [place] (SYNTHROID) 00:00: of 125 MCG 00 Medicin tablet e levothyroxi 2018-0 Yes 88ug 88 mcg [facility] ne 4-04 daily. [place] (SYNTHROID) 00:00: of 125 MCG 00 Medicin tablet e nadolol 2018-0 Yes daily. [facility] (CORGARD) 3-28 College 40 MG 00:00: of tablet 00 Medicin e nadolol 2018-0 Yes daily. [facility] (CORGARD) 3-28 College 40 MG 00:00: of tablet 00 Medicin e meloxicam 2018-0 Yes daily. [facility] (MOBIC) 15 3-28 College MG tablet 00:00: of 00 Medicin e nadolol 2018-0 Yes daily. [facility] (CORGARD) 3-28 College 40 MG 00:00: of tablet 00 Medicin e folic acid 2018-0 Yes daily. [facility] (FOLVITE) 1 3-16 College MG tablet 00:00: of 00 Medicin e cholecalcif 2017-1 Yes 2000U QD Take 2,000 Methodi martha, 2-19 Units by vitamin D3, 14:23: mouth Hospi ta (VITAMIN [...] QD Take 40 mg [facility] (CORGARD) 6- by mouth st 40 MG 00:00: daily. Hospita tablet 00 l nadolol 2016-0 Yes 40mg QD Take 40 mg [facility] (CORGARD) 6-[address] 40 MG 00:00: daily. Hospita tablet 00 l Vital Signs Vital Name Observation Time Observation Value Comments Source Systolic blood 2020-09-08 19:11:00 119 mm[Hg] [facility] pressure Medicine Diastolic blood 2020-09-08 19:11:00 80 mm[Hg] [facility] Medicine Heart rate 2020-09-08 19:11:00 75 /min [facility] ol[facility] of [facility] Body temperature 2020-09-08 19:11:00 36.28 Tona [facility] Respiratory rate 2020-09-08 19:11:00 16 /min [facility] Body height 2020-09-08 19:11:[address] [facility] [place] [place] Body weight 2020-09-08 19:11:[address] [facility] [place] [place] BMI 2020-09-08 19:11:00 41.09 kg/m[facility] [place] [place] Oxygen saturation in 2020-09-08 19:11:00 97 /min [facility] Arterial blood by Medicine Pulse oximetry Systolic blood 2020-09-08 19:11:00 119 mm[Hg] [facility] Medicine Diastolic blood 2020-09-08 19:11:00 80 mm[Hg] [facility] Medicine Heart rate 2020-09-08 19:11:00 75 /min [facility] Body temperature 2020-09-08 19:11:00 36.28 Tona [facility] Respiratory rate 2020-09-08 19:11:00 16 /min [facility] Body height 2020-09-08 19:11:00 167.6 [facility] Body weight 2020-09-08 19:11:00 115.486 [facility] BMI 2020-09-08 19:11:00 41.09 kg/m2 [facility] Oxygen saturation in 2020-09-08 19:11:00 97 /min [facility] [employer] of Arterial blood by Medicine Pulse oximetry Systolic blood 2020-04-07 18:19:00 119 mm[Hg] [facility] pressure Medicine Diastolic blood 2020-04-07 18:19:00 81 mm[Hg] [facility] of pressure Medicine Heart rate 2020-04-07 18:19:00 87 /min [facility] ol[facility] of [facility] Body temperature 2020-04-07 18:19:00 37.11 Tona [facility] Respiratory rate 2020-04-07 18:19:00 16 /min [facility] Body height 2020-04-07 18:19:00 167.6 cm [facility] ol[facility] Body weight 2020-04-07 18:19:00 111.857 [facility] BMI 2020-04-07 18:19:00 39.80 kg/m2 [facility] ol[facility] Oxygen saturation in 2020-04-07 18:19:00 97 /min [facility] of Arterial blood by Medicine Pulse oximetry Systolic blood 2020-04-07 18:19:00 119 mm[Hg] [facility] Medicine Diastolic blood 2020-04-07 18:19:00 81 mm[Hg] [facility] Medicine Heart rate 2020-04-07 18:19:00 87 /min [facility] ol[facility] Body temperature 2020-04-07 18:19:00 37.11 [facility] Respiratory rate 2020-04-07 18:19:00 16 /min [facility] Body height 2020-04-07 18:19:00 167.6 cm [facility] Body weight 2020-04-07 18:19:00 111.857 kg [facility] BMI 2020-04-07 18:19:00 39.80 kg/m2 [facility] Oxygen saturation in 2020-04-07 18:19:00 97 /min [facility] of Arterial blood by Medicine Pulse oximetry Systolic blood 2019-09-02 16:53:00 155 mm[Hg] [facility] of pressure Medicine Diastolic blood 2019-09-02 16:53:00 84 mm[Hg] [facility] pressure Medicine Heart rate 2019-09-02 16:53:00 59 /min [facility] C ollege of [facility] Body temperature 2019-09-02 16:53:00 36.89 Tona [facility] Respiratory rate 2019-09-02 16:53:00 16 /min [facility] Body height 2019-09-02 16:53:00 167.6 cm [facility] ol[facility] of [facility] Body weight 2019-09-02 16:53:00 93.985 kg [facility] BMI 2019-09-02 16:53:00 33.44 kg/m2 [facility] Oxygen saturation in 2019-09-02 16:53:00 99 /min [facility] of Arterial blood by Medicine Pulse oximetry Systolic blood 2019-09-02 16:53:00 155 mm[Hg] [facility] pressure Medicine Diastolic blood 2019-09-02 16:53:00 84 mm[Hg] [facility] Medicine Heart rate 2019-09-02 16:53:00 59 /min [facility] ol[facility] of [facility] Body temperature 2019-09-02 16:53:00 36.89 Tona [facility] Respiratory rate 2019-09-02 16:53:00 16 /min [facility] Body height 2019-09-02 16:53:00 167.6 cm [facility] [place] [place] Body weight 2019-09-02 16:53:00 93.985 kg [facility] BMI 2019-09-02 16:53:00 33.44 kg/m2 [facility] Oxygen saturation in 2019-09-02 16:53:00 99 /min [facility] Arterial blood by Medicine Pulse oximetry Procedures This patient has no [...] VACCINE (#1)] Future Scheduled 2022-06-08 Screening for [facility] Test 12:55:41 malignant neoplasm of Hospit al cervix (procedure) [code = 443565399] Future Scheduled 2022-06-08 BREAST CANCER [facility] Test 12:55:41 SCREENING [code = Hospital BREAST CANCER SCREENING] Future Scheduled 2022-06-08 COLONOSCOPY SCREENING [facility] Test 12:55:41 [code = COLONOSCOPY Hospital SCREENING] Future Scheduled 2022-06-08 INFLUENZA VACCINE Method ist Test 12:55:41 [code = INFLUENZA Hospital VACCINE] Future Scheduled 2022-06-08 HEPATITIS B VACCINES [facility] Test 12:55:41 (1 of 3 - 3-dose Hospital series) [code = HEPATITIS B VACCINES (1 of 3 - 3-dose series)] Future Scheduled 2022-06-08 COVID-19 VACCINE (#1) [facility] Test 12:55:41 [code = COVID-19 Hospital VACCINE (#1)] Future Scheduled 2022-06-08 Screening for [facility] Test 12:55:41 malignant neoplasm of Hospit al cervix (procedure) [code = 942294714] Future Scheduled 2022-06-08 BREAST CANCER [facility] Test 12:55:41 SCREENING [code = Hospital BREAST CANCER SCREENING] Future Scheduled 2022-06-08 COLONOSCOPY SCREENING [facility] Test 12:55:41 [code = COLONOSCOPY Hospital SCREENING] Future Scheduled 2022-06-08 INFLUENZA VACCINE Method ist Test 12:55:41 [code = INFLUENZA Hospital VACCINE] Future Scheduled 2021-09-06 COVID-19 VACCINE (1) [facility] Test 13:16:21 [code = COVID-19 Hospital VACCINE (1)] Future Scheduled 2021-09-06 Screening for [facility] Test 13:16:21 malignant neoplasm of Hospit al cervix (procedure) [code = 841138537] Future Scheduled 2021-09-06 INFLUENZA VACCINE [facility] Test 13:16:21 [code = INFLUENZA Hospital VACCINE] Diagnostic Test 2020-09-08 CBC W/AUTO DIFF WITH Expected: [facility] Pending 00:00:00 PLATELETS [code = 09/08/2020, of Medicin e 69652-9] Expires: 03/08/2021 Diagnostic Test 2020-09-08 COMPREHENSIVE Expected: [facility] [place] [facility] Pending 00:00:00 METABOLIC PANEL [code 09/08/2020, of Med icine = 36165-1] Expires: 03/08/2021 Diagnostic Test 2020-09-08 C-REACTIVE PROTEIN Expected: [facility] Pending 00:00:00 [code = 1987-] 09/08/2020, of Medicine Expires: 03/08/2021 Diagnostic Test 2020-05-07 COMPREHENSIVE Expected: [facility] ege Pending 00:00:00 METABOLIC PANEL [code 05/07/2020, of Med icine = 22102-4] Expires: 10/05/2020 Diagnostic Test 2020-05-07 C-REACTIVE PROTEIN Expected: [facility] Pending 00:00:00 [code = 1987-] 05/07/2020, of Medicine Expires: 10/05/2020 Diagnostic Test 2020-04-07 CBC W/AUTO DIFF WITH Expected: [facility] Pending 00:00:00 PLATELETS [code = 04/07/2020, of Medicin e 45641-9] Expires: 10/05/2020 Future Scheduled TETANUS SHOT (ADULT) [facility] Test [code = TETANUS SHOT of Medi cine (ADULT)] Future Scheduled BMI FOLLOW UP PLAN [facility] [place] Test [code = BMI FOLLOW UP of Med icine PLAN] Future Scheduled HIV SCREENING [code = [facility] Test HIV SCREENING] of Medicine Future Scheduled CERVICAL CANCER [facility] C ollege Test SCREENING 3 YEAR of Medicine FOLLOW UP [code = CERVICAL CANCER SCREENING 3 YEAR FOLLOW UP] Future Scheduled FLU VACCINE > 6 [facility] C ollege Test MONTHS [code = FLU of Medici ne VACCINE > 6 MONTHS] Future Scheduled ZOSTER VACCINE (1 of [facility] Test 2) [code = ZOSTER of Medicin e VACCINE (1 of 2)] Future Scheduled COVID-19 Vaccine [facility] Test Evaluation [code = of Medici ne COVID-19 Vaccine Evaluation] Future Scheduled MAMMOGRAM ANNUAL [facility] Test [code = MAMMOGRAM of Medicin e ANNUAL] Future Scheduled TETANUS SHOT (ADULT) [facility] Test [code = TETANUS SHOT of Medi cine (ADULT)] Future Scheduled BMI FOLLOW UP PLAN [facility] College Test [code = BMI FOLLOW UP of Med icine PLAN] Future Scheduled HIV SCREENING [code = [employer] Test HIV SCREENING] of Medicine Future Scheduled CERVICAL CANCER [facility] C ollege Test SCREENING 3 YEAR of Medicine FOLLOW UP [code = CERVICAL CANCER SCREENING 3 YEAR FOLLOW UP] Future Scheduled FLU VACCINE > 6 [facility] C ollege Test MONTHS [code = FLU of Medici ne VACCINE > 6 MONTHS] Future Scheduled MAMMOGRAM ANNUAL [facility] College Test [code = MAMMOGRAM of Medicin e ANNUAL] Future Scheduled TETANUS SHOT (ADULT) [facility] Test [code = TETANUS SHOT of Medi cine (ADULT)] Future Scheduled BMI FOLLOW UP PLAN [facility] Test [code = BMI FOLLOW UP of Med icine PLAN] Future Scheduled HIV SCREENING [code = [employer] Test HIV SCREENING] of Medicine Future Scheduled CERVICAL CANCER [facility] C ollege Test SCREENING 3 YEAR of Medicine FOLLOW UP [code = CERVICAL CANCER SCREENING 3 YEAR FOLLOW UP] Future Scheduled FLU VACCINE > 6 [facility] C ollege Test MONTHS [code = FLU of Medici ne VACCINE > 6 MONTHS] Future Scheduled MAMMOGRAM ANNUAL [facility] Test [code = MAMMOGRAM of Medicin e ANNUAL] Encounters Start End Encounter Admission Attending Care Care Encounter Source Date/Time Date/Time Type Type Clinicians Facility Department ID 2021-04-04 2021-04-04 Outpatient MONSE PRUITT Timoteo [id number] [facility] 13:16:17 13:28:57 DESMOND [facility] of Medicin e 2021-03-28 2021-03-28 Outpatient MONSE PRUITT [facility] [id number] [facility] 09:37:21 09:58:26 DESMOND [facility] Medicin e 2021-03-22 2021-03-22 Outpatient MONSE HUANG [id number] [facility] 10:37:37 10:47:12 DAVID [facility] of Medicin e 2021-03-17 2021-03-17 Outpatient MONSE HUANG [id number] [facility] 14:20:35 14:35:25 DAVID [facility] Medicin e 2021-03-16 2021-03-16 Outpatient MONSE HUANG [place] [id number] [facility] 11:44:03 11:52:25 DAVID [facility] of Medicin e 2021-03-14 2021-03-14 Outpatient MONSE PRUITT [facility] [id number] [facility] 17:02:24 17:53:45 DESMOND [facility] of Medicin e 2021-03-11 2021-03-11 Outpatient MONSE TAMAYO [facility] [id number] [facility] 10:00:21 10:10:17 MED [facility] of Medicin e 2020-10-21 2020-10-21 Patient Car KYLUIS [id number] 00:00:00 00:00:00 Outreach Antonio MERCADO [id number] [facility] [id number] IVET [id number] 2020-09-08 2020-09-08 Office Bhairavaras BCM [id number] 12:48:29 16:15:07 Visit u, Pricilla AMBULATOR [id number] [place] [id number] [id number] 2020-09-08 2020-09-08 Office Bhairavaras BCM [id number] [facility] 12:48:29 16:15:07 Visit u, Pricilla AMBULATOR [id number] [facility] [place] 0.2.7.2.686 of [id number] [facility] suresh 370 e 2020-04-07 2020-04-07 Office Bhairavaras BCM [id number] 13:05:16 13:35:16 Visit u, Pricilla AMBULATOR [id number] [place] Y [id number] [id number] 2020-04-07 2020-04-07 Office Bhairavaras BCM [id number] [facility] 13:05:16 13:35:16 Visit u, [place] AMBULATOR [id number] [facility] [place] Y [id number] of [id number] [facility] suresh 370 e 2019-09-02 2019-09-02 Office Bhairavaras BCM [id number] 10:34:12 11:59:44 Visit u, [place]ricilla AMBULATOR [id number] [place] Y [id number] 2019-09-02 2019-09-02 Office Bhairavaras BCM [id number] [facility] 10:34:12 11:59:44 Visit uPricilla AMBULATOR [id number] [facility] Y [id number] [id number] [facility] 370 e Results This patient has no known results.
[2022-07-03 16:15] VITALS: O2SAT 97
[2022-07-03 17:39] VITALS: BMI 40.3
[2022-07-03] MEDS: NA CHLORIDE 0.9% 1,000 ML IV SCH (18:03)
[2022-07-03] MEDS: CIPROFLOXACIN 400mg IV 400 MG/200 ML BAG IV SCH (20:10)
[2022-07-03] MEDS: ONDANSETRON 4 MG/2 ML VIAL IV PRN (20:10)
--- NOTE | 2022-07-03 23:20 | OP ---
Date of Procedure: 07/03/2022 Surgeon: Hugo Weber MD [employer] Certified Network Professional: CALVIN Vargas. Preoperative Diagnoses: Ventral tender incisional hernia, abdominal pain. Postoperative Diagnoses: Multiple ventral hernias, incisional ventral hernias, one of them is in the epigastric area, another one is in the lower abdominal area below the umbilical region. Those herni as are completely different and they were repaired on their own. One of them was repaired using the mesh. Procedures: 1.Laparoscopic repair of incisional lower abdominal ventral hernia with mesh. 2.Laparoscopic repair of an incisional epigastric ventral hernia with mesh. 3.Laparoscopic lysis of adhesions. Estimated Blood Loss: Less than 20 cc. Specimen: Hernia sac x2. Findings: Patient has 2 hernias, 1 of them in the epigastric area, partially incarcerated first for ligament coming through it. The lower abdomen has a hernia and omentum is trapped and incarcerated i n that area with multiple adhesions that needs to be removed with the help of LigaSure. Each hernia was fixed individually. Anesthesia: General plus local. Implant: A large Ventralex mesh in the lower abdominal area and a medium Ventralex mesh in the epiga stric hernia region. Complications: None. Estimated Blood Loss: Less than 20 cc. Indications: This is a case of a female, who comes to us with a ventral bulging and tenderness. Pat ient was diagnosed with a ventral hernia. The benefits, alternatives, and risks of laparoscopic poss ible repair of ventral hernia, incisional ventral hernia with mesh fully explained, which include, bu t not limited to infection, bleeding, damage to adjacent structures, anesthesia complication, recurre nce, [place], and . She also understands this may not relieve any symptoms. She might need more jennifer n one surgical intervention. She also understands that we might be using mesh in that region, so the pros and cons of mesh were discussed with the patient. All the questions were answered to her satis faction. She signed a consent. She also understands the importance of no heavy lifting in the futur e and also losing weight to diminish the chance of recurrence. She signed a consent. Description Of Procedure: Patient was brought to the operating room, placed in supine position. Ane sthesia was then induced without complication. The area of concern was marked by me and the patient in the holding room. An incision was made in the periumbilical region. Incision was carried down to fascia. Fascia was opened under direct vision. Peritoneum was encountered, opened under direct vis ion. Vicryl #1 placed inside the fascia. James trocar was carefully introduced. Pneumoperitoneum was obtained. Once we put the cameras in, we were able to identify 2 areas of concern. We guess we have the epigastric hernia with some omentum in a falciform ligament going through it. But unfortuna tely we had a lower ventral abdominal hernia, also incisional. This one has omentum coming through i t and cannot be reduced until we remove the adhesions from it. So, we proceeded to work in the epiga stric area first. We made a tiny incision where the patient had previous incision. This allowed me to clean the fascial edges. With the help of the LigaSure, we will proceed to mobilize the falciform ligament to allow me to clean the fascia edges from inside the abdomen better, so the repair is trish le bit stronger. We did that with the help of LigaSure. We put 5 mm trocars 2 more in right and lef t side. This allowed me to address the issue of the lower abdomen. Patient has multiple omental adh esions adhesions that we have to remove slowly. Some intestines are close by, so with the help of Caro Rai under direct visualization, we proceeded to do lysis of adhesions until we removed the omentum off the abdominal wall hernia cavity. We checked hemostasis of this omentum with no bleeding. No e nterotomies. At that moment, we noticed the fascial edges were friable. We made an incision in that area from the skin. To be able to hold these fascial edges treatment properly, #1 Prolene in a figu re-of-eight fashion multiple times. Before we tied all the stitches together in a arbrof-wy-fbyla, w e proceeded then to place a large Ventralex to overlap this defect by about 3-5 cm. The straps were pulled through. All the stitches were tied except to allow movement of this strap as we pull it agai nst the abdominal wall and as we secured that with the SorbaFix. Once we put this anteriorly with So rbaFix, we removed the straps and tied the rest of the sutures Prolene in that area making this water and air seal. We did further fixation of that via mesh with the help of SorbaFix circumferentially to diminish the chance of any intestines coming through. At that moment, we checked the area of the lysis of adhesions, it looks intact. At this moment, we already closed the umbilical incision too wi th #1 Vicryl in a bjsleo-at-jitju fashion. So, the mesh looked nice and flat in the lower abdomen. We went to the epigastric area due to the fascia edges were weak. We proceeded then to trim them and closed that with Prolene in a cwafjh-bn-rsjic fashion. Before that tied, we put a medium Ventralex mesh, pulled the straps and laparoscopically fixated that mesh anteriorly with the help of SorbaFix. The straps were removed. The stitches were tied closing the fascia edges to seal from water or air. Area was irrigated. We continued fixation of the epigastric mesh region to make sure there are no intestines coming in between the fascia and the mesh. Once we have that, we obtained hemostasis. We looked once again at the falciform ligament that was mobilized previously and there was no bleeding there. Local anesthesia was applied followed by a removal of the trocars under direct vision. Defla ivania pneumoperitoneum, closed the subcutaneous tissue with 3-0 chromic and Steri-Strips on top. Patie nt tolerated the procedure well. Patient was sent to recovery in stable condition. BURT/VEDA Voice ID: [id number] Report ID: [id number]
[2022-07-04] MEDS: MORPHINE 4 MG/ML SYR IV PRN ×3 (01:35→08:20)
--- NOTE | 2022-07-04 08:18 | DS ---
Diagnoses: Ventral incisional hernia, epigastric and lower abdominal wall, and intraabdominal adhesi ons. Procedures: Laparoscopic repair of incisional lower abdominal wall ventral hernia with mesh and lapa roscopic repair of incisional epigastric ventral hernia with mesh and laparoscopic lysis of adhesions . Disposition: Home. Activity: As tolerated. No heavy lifting. Followup: In my office in 1 week. Call for appointment at [phone]. Keep area dry for 48 hours and may shower. This is discharge pending on the postop pain. If we see postoperative she is having too much pain, we might have to get her overnight for 23 hours. She want to make the decision when she is fully awake. BURT/VEDA Voice ID: [id number] Report ID: [id number]
[2022-07-04] MEDS: CIPROFLOXACIN 400mg IV 400 MG/200 ML BAG IV SCH (08:21)
[2022-07-04] MEDS: ONDANSETRON 4 MG/2 ML VIAL IV PRN (08:27)
[2022-07-04] MEDS: TRAMADOL 37.5mg/APAP 325mg PER TAB PO PRN ×3 (11:51→21:00)
--- NOTE | 2022-07-04 14:14 | EKG ---
Test Date: 2022-07-03 Test Time: 07:55:16 Silo Painter: RASHAD MEASUREMENT RESULTS: Intervals: Rate: 62 LA: 172 QRSD: 88 QT: 394 QTc: 399 [place]: P: 43 LA: 172 QRS: 5 T: 25 INTERPRETIVE STATEMENTS: Normal sinus rhythm Normal ECG Compared to ECG 09/06/2021 08:21:48 No significant changes Electronically Signed On 07-04-22 14:12:36 GUIDANCE COUNSELOR by Marcial Booth
[2022-07-04] MEDS: NA CHLORIDE 0.9% 1,000 ML IV SCH (17:01)
--- NOTE | 2022-07-04 18:11 | PN ---
Date of Progress Note: 07/04/2022 Diagnosis: Status post repair of multiple incisional ventral hernias with mesh and also laparoscopic lysis of adhesions. Subjective: This is a case of a 47-year-old patient, comes to us for repair of ventral hernias. We ended up finding multiple hernias and a lot of scar tissues inside the abdomen, so the procedure urvashi me double that we were expecting. So after the surgery, we advised the patient, in trying to get her pain control, she still needed IV medications, so she was admitted to the hospital overnight. Today , she is still requiring IV pain medication. She is tolerating a full liquid diet. She does not hav e any shortness of breath or any chest pain, although the abdomen is very tender and it is hard for h er to get out of bed. We have been recommending incentive spirometry, SCDs, and ambulation. Objective: Chest: Clear. Abdomen: Intact surgical site. Extremities: No calf tenderness. Plan: The patient is still requiring IV medication. By this afternoon she thinks she can handle jus t medication by mouth, then she will be discharged home. Otherwise tomorrow if she is still requirin g IV pain medication for pain control. BURT/VEDA Voice ID: [id number] Report ID: [id number]
[2022-07-04] MEDS: CIPROFLOXACIN HCL 500 MG TAB PO SCH (20:59)
[2022-07-04] MEDS: ENSURE CLEAR 200 ML CAN PO SCH (21:00)
[2022-07-05] MEDS: NA CHLORIDE 0.9% 1,000 ML IV SCH (00:20)
[2022-07-05] MEDS: TRAMADOL 37.5mg/APAP 325mg PER TAB PO PRN ×2 (00:39→06:07)
[2022-07-05] MEDS: CIPROFLOXACIN HCL 500 MG TAB PO SCH (08:27)
[2022-07-05] MEDS: ENSURE CLEAR 200 ML CAN PO SCH (08:28)
[2022-07-05 08:45] VITALS: BP 138/81; TEMP 98.8
--- NOTE | 2022-07-05 09:14 | P.DS ---
Admission Date: 07/03/22 Discharge Date: 07/05/22 Disposition: ROUTINE DISCHARGE Discharge Condition: GOOD Hospital Course: unremarkable Vital Signs/Physical Exam: Temp Pulse Resp BP Pulse Ox 98.8 F 71 16 138/81 95 07/05/22 08:00 07/05/22 08:00 07/05/22 08:00 07/05/22 08:00 07/05/22 08:00 General: Alert, In no apparent distress, Cooperative HEENT: Normocephalic, PERRLA Neck: Supple Respiratory: Normal air movement Cardiovascular: No edema, Normal pulses Gastrointestinal: Soft and benign Integumentary: No rashes, No breakdown, No warmth, No cyanosis Neurological: Normal gait, Normal speech Home Medications: ALPRAZolam [Xanax] 0.5 mg PO BEDTIME 07/03/22 Amitriptyline [Elavil] 25 mg PO BEDTIME 07/03/22 Atogepant [Qulipta] 60 mg PO BEDTIME 07/03/22 Celecoxib [Celebrex] 200 mg PO BID 07/03/22 Cimzia 400 mg SQ SEECOM 07/03/22 Dextroamphetamine/Amphetamine [Adderall 20 mg Tablet] 20 mg PO BID 07/03/22 Dulaglutide [Trulicity] 0.75 mg SQ EVERY 7TH DAY 07/03/22 Eszopiclone [Lunesta] 3 mg PO BEDTIME 07/03/22 Fluticasone [Flonase 50mcg Nasal [place]] 2 sprays NS DAILY PRN 07/03/22 Folic Acid 1 mg PO BEDTIME 07/03/22 Inulin/Chromium Picolinate [Fiber Gummies] 1 each PO DAILY 07/03/22 Levothyroxine [Synthroid] 100 mcg PO [id number] 07/03/22 Mirtazapine 7.5 mg PO BEDTIME 07/03/22 Multivitamin 1 each PO DAILY 07/03/22 Propranolol [Inderal] 40 mg PO BEDTIME 07/03/22 Rosuvastatin Calcium [Crestor] 10 mg PO BEDTIME 07/03/22 Tramadol HCl/Acetaminophen [Ultracet Tablet] 1 each PO Q4H PRN #1 07/03/22 Vilazodone HCl [Viibryd] 20 mg PO BEDTIME 07/03/22 predniSONE [Deltasone] 5 mg PO DAILYPRN PRN 07/03/22 Ubrogepant [Ubrelvy] 100 mg PO DIRECTED PRN 07/04/22 New Medications: Tramadol HCl/Acetaminophen [Ultracet Tablet] 1 each PO Q4H PRN #1 PRN Reason: Pain Scale 5-7 (Moderate) Physician Discharge Instructions: Diet:AHA Activity:No lifting more than 10 lbs PHYSICIAN'S DISCHARGE INSTRUCTIONS Keep area intact for 48h then may remove outer dressing and shower. Keep sterile strips intact. P controlling pain with PO meds today Diet: AHA Activity: No lifting more than 10 lbs Followup: Hugo Weber MD [ACTIVE - CAN ADMIT] - 1 Week Mojgan Diallo, DO [Primary Care Provider] - If your Condition Changes
== END 2022-07-05 10:06 | disposition home or self-care (01) ==
LOC: OR 08:09 → 2ND 14:10
PROVIDERS: ADMIT Surgery; ATTEND Surgery
PROC: 0WUF4JZ Supplement Abdominal Wall with Synthetic Substitute, Percutaneous Endoscopic Approach (ICD-10-PCS; principal; 2022-07-03 10:30)
DX: K43.2 Incisional hernia without obstruction or gangrene (principal); K66.0 Peritoneal adhesions (postprocedural) (postinfection); Z20.822 Contact with and (suspected) exposure to COVID-19
CPT/HCPCS: 93005; 36415; 82947 ×2; 88302; 71046; 94010; 87811; 49654; J2704; J2001; J2250; J3010; J2710; J7030 ×3; J2405 ×4; J0744 ×3; G0378; G0379; J0690

== ENCOUNTER 2024-08-02 18:37 | Emergency (ER) | payer BC ==
--- OUTSIDE RECORDS SUMMARY | 2024-08-02 18:39 | XMS REPORT | Continuity of Care Document ---
Author Name Unknown Address [address] [facility] [place] [address] [facility] thconnect Address [address] [facility] [address] [place] [address] Care Team Providers Care Security Systems Integrator Name Role Phone Antonio Yoon DO Attending Clinician Encounters Start Date/Time End Date/Time Encounter Type Admission Type Attending Clinicians Care Facility Care Department Encounter ID Source 2020-10-21 00:00:00 2020-10-21 00:00:00 Patient Outreach Antonio Yoon [facility] [id number]
[2024-08-02] MEDS ORDERED: IBUPROFEN 400 MG TAB ONE (19:13)
[2024-08-02] MEDS ORDERED: HYDROCODONE/CHLORPHEN 5 ML/OSYR ONE (19:13)
[2024-08-02 20:17] LABS: SARS-CoV-2 Antigen CONTROL BLUE LINE VIS/BG OK; SARS-CoV-2 Antigen Rapid Res Negative (Negative)
--- NOTE | 2024-08-02 21:53 | EDPHYS ---
Physician Documentation [facility] Name: Niki Martino Age: 49 yrs Sex: Female : 1975 Arrival Date: 08/02/2024 Time: 18:37 Bed 19 Private MD: ED Physician Humza Hill HPI: 08/02 19:00 This 49 yrs old Female presents to ER via Ambulatory with complaints of Flu Symptoms. cp 19:00 The patient or guardian reports cough, that is intermittent, flu symptoms, headache, cp body aches. Onset: The symptoms/episode began/occurred yesterday. Associated signs and symptoms: Pertinent positives: fever, Pertinent negatives: chest pain, diarrhea, vomiting, abdominal pain. 19:00 Severity of symptoms: in the emergency department the symptoms are unchanged despite cp home interventions. Historical: - Allergies: 18:49 Augmentin; hb 18:49 BENZOYL PEROXIDE; hb 18:49 Cleocin; hb 18:49 Codeine; hb - PMHx: 18:49 Diabetes - NIDDM; Hyperlipidemia; Arthritis; Migraines; Hypothyroidism; hb - PSHx: 18:49 L foot SX; hb - Immunization history:: Adult Immunizations up to date. - Infectious Disease History:: Denies. - Social history:: Smoking status: Reported history of juuling and/or vaping. ROS: 19:05 Constitutional: Positive for body aches, fever, cp 19:05 Eyes: Negative for injury, pain, redness, and discharge, cp 19:05 ENT: Negative for drainage from ear(s), ear pain, difficulty swallowing, difficulty handling secretions, 19:05 Neck: Negative for pain with movement, pain at rest, stiffness, 19:05 Respiratory: Positive for cough, Negative for shortness of breath, wheezing, 19:05 Abdomen/GI: Positive for nausea, Negative for abdominal pain, vomiting, diarrhea, constipation, 19:05 Neuro: Positive for headache, Negative for altered mental status, numbness, weakness, 19:05 All other systems are negative, Exam: 19:10 Constitutional: The patient appears in no acute distress, alert, awake, non-toxic, well cp developed, well nourished, uncomfortable, 19:10 Head/Face: Normocephalic, atraumatic. cp 19:10 Eyes: Periorbital structures: appear normal, Conjunctiva: normal, no exudate, no injection, Sclera: no appreciated abnormality, Lids and lashes: appear normal, bilaterally, 19:10 ENT: External ear(s): are unremarkable, Ear canal(s): are normal, clear, TM's: dullness, bilaterally, Nose: is normal, Mouth: Lips: moist, Oral mucosa: moist, Posterior pharynx: Airway: no evidence of obstruction, patent, Tonsils: no enlargement, no exudate, erythema, that is mild, exudate, is not appreciated, 19:10 Neck: ROM/movement: Meningeal signs: are not present, nuchal rigidity, is not appreciated, 19:10 Chest/axilla: Inspection: normal, 19:10 Cardiovascular: Rate: normal, Rhythm: regular, 19:10 Respiratory: the patient does not display signs of respiratory distress, Respirations: normal, no use of accessory muscles, no retractions, labored breathing, is not present, Breath sounds: are clear throughout, no decreased breath sounds, no stridor, no wheezing, 19:10 Abdomen/GI: Inspection: abdomen appears normal, Palpation: abdomen is soft and non-tender, in all quadrants, 19:10 Back: CVA tenderness, is absent, 19:10 Neuro: Orientation: to person, place \T\ time. Mentation: is normal, Motor: moves all fours, strength is normal, Sensation: is normal, Vital Signs: 18:47 BP 156 / 78; Pulse 97; Resp 20; Temp 100.4(O); Pulse Ox 100% on R/A; Weight 97.52 kg; hb Height 5 ft. 6 in. ; Pain 10/10; 20:22 BP 156 / 75; Pulse 82; Resp 18 S; Pulse Ox 98% on R/A; br2 20:27 BP 134 / 69; Pulse 82; Resp 18 S; Temp 100; Pulse Ox 98% on R/A; br2 18:47 Body Mass Index 34.70 (97.52 kg, 167.64 cm) hb 18:47 Pain Scale: Adult hb MDM: 18:41 Medical Screening Exam initiated cp 21:52 Data reviewed: vital signs, nurses notes, lab test result(s), radiologic studies, plain cp films, and as a result, I will discharge patient. 21:52 I considered the following discharge prescriptions or medication management in the emergency department Medications were administered in the Emergency Department. See MAR. Independent interpretation of the following test(s) in the Emergency Department X-Ray: My interpretation is chest xray negative for focal pneumonia. Care significantly affected by the following chronic conditions: Diabetes. Counseling: I had a detailed discussion with the patient and/or guardian regarding the historical points, exam findings, and any diagnostic results supporting the discharge/admit diagnosis, lab results, radiology results, to return to the emergency department if symptoms worsen or persist or if there are any questions or concerns that arise at home. 08/02 18:53 Order name: Influenza Screen (a \T\ B); Complete Time: 20:20 08/02 20:20 Interpretation: Reviewed. 08/02 18:53 Order name: SARS RAPID; Complete Time: 20:20 08/02 20:20 Interpretation: Reviewed. 08/02 18:53 Order name: Strep 08/02 20:20 Interpretation: Reviewed. 08/02 18:53 Order name: RSV; Complete Time: 20:20 08/02 20:20 Interpretation: Reviewed. 08/02 20:21 Order name: Throat Culture EDMI 08/02 20:21 Order name: XRAY Chest (1 view) cp Administered Medications: 19:22 Drug: Tussionex Pennkinetic ER PO Suspension 5 ml PO once Route: PO; br2 20:00 Follow up: Response: No adverse reaction br2 19:23 Drug: Ibuprofen PO 800 mg PO once Route: PO; br2 20:00 Follow up: Response: No adverse reaction br2 22:06 Drug: Acetaminophen PO 1000 mg PO once Route: PO; br2 22:06 Follow up: Response: Medication administered at discharge. br2 Disposition Summary: 08/02/24 21:53 Discharge Ordered Notes: Location: Home cp Problem: new cp Symptoms: have improved cp Condition: Stable cp Diagnosis - Influenza due to unidentified influenza virus with other respiratory manifestations cp Followup: cp - With: Private Physician - When: 2 - 3 days - Reason: Worsening of condition Discharge Instructions: - Discharge Summary Sheet cp - Influenza, Adult cp Forms: - Medication Reconciliation Form cp - Antibiotic Education cp - Prescription Opioid Use cp - Patient Portal Instructions cp - Leadership Thank You Letter cp - Work release form br2 Prescriptions: - Bromfed DM 2-30-10 mg/5 mL Oral syrup - administer 10 milliliter ORAL route every 6 hours as needed for cold symptoms; cp 240 milliliter; Refills: 0, Product Selection Permitted - Ibuprofen 800 mg Oral Tablet - take 1 tablet ORAL route every 8 hours As needed take with food; 30 tablet; cp Refills: 0, Product Selection Permitted - Tamiflu 75 mg Oral capsule - take 1 tablet ORAL route every 12 hours for 5 days; 10 tablet; Refills: 0, cp Product Selection Permitted Addendum: 08/04/2024 15:02 Co-signature as Attending Physician, Humza Hill MD I agree with the assessment and c francis plan of care. Signatures: Dispatcher [employer] EDMI Humza Hill MD MD cha Page, Corey, PA PA cp Feli Montes De Oca, CY RN Korin Ortega RN RN br2 Corrections: (The following items were deleted from the chart) 08/02 18:50 18:49 Social history: Smoking status: Patient denies any tobacco usage or history of. [facility] 08/03 15:26 08/02 19:00 Onset: The symptoms/episode began/occurred this morning, cp cp
--- NOTE | 2024-08-02 21:53 | ER ---
Nurse's Notes [facility] Name: Niki Martino Age: 49 yrs Sex: Female : 1975 Arrival Date: 08/02/2024 Time: 18:37 Bed 19 Private MD: Diagnosis: Influenza due to unidentified influenza virus with other respiratory manifestations Presentation: 08/02 18:47 Chief complaint: Fever, Headache, cough, and body aches x 2 days. 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 Coronavirus screen: Client presents with at least one sign or symptom that may indicate coronavirus-19. Provider contacted for isolation considerations. Ebola Screen: No symptoms or risks identified at this time. Initial Sepsis Screen: Does the patient meet any 2 criteria? No. Patient's initial sepsis screen is negative. Does the patient have a suspected source of infection? No. Patient's initial sepsis screen is negative. Risk Assessment: Do you want to hurt yourself or someone else? Patient reports no desire to harm self or others. Onset of symptoms was August 01, 2024. 18:47 Method Of Arrival: Ambulatory hb 18:47 Acuity: LUZMARIA 3 hb Historical: - Allergies: 18:49 Augmentin; hb 18:49 BENZOYL PEROXIDE; hb 18:49 Cleocin; hb 18:49 Codeine; hb - PMHx: 18:49 Diabetes - NIDDM; Hyperlipidemia; Arthritis; Migraines; Hypothyroidism; hb - PSHx: 18:49 L foot SX; hb - Immunization history:: Adult Immunizations up to date. - Infectious Disease History:: Denies. - Social history:: Smoking status: Reported history of juuling and/or vaping. Screenin:05 [facility] ED Fall Risk Assessment (Adult) History of falling in the last 3 months, br2 including since admission. 19:05 [facility] ED Fall Risk Assessment (Adult) Confusion or Disorientation No (0 pts) br2 Intoxicated or Sedated No (0 pts) Impaired Gait No (0 pts) Mobility Assist Device Used No (0 pt) Altered Elimination No (0 pt) Score/Fall Risk Level 0 - 2 = Low Risk Oriented to surroundings. Abuse screen: Denies threats or abuse. Denies injuries from another. Nutritional screening: No deficits noted. Tuberculosis screening: No symptoms or risk factors identified. Assessment: 19:05 Reassessment: Patient and/or family updated on plan of care and expected duration. Pain br2 level reassessed. Patient is alert, oriented x 3, equal unlabored respirations, skin warm/dry/pink. General: Appears in no apparent distress. comfortable, Behavior is calm, cooperative. 20:22 Pain: Complains of pain in head, chest, abdomen, pelvis, right arm, right hand, left br2 arm, left hand, right leg, right foot, left leg, left foot, face and scalp Pain currently is 7 out of 10 on a pain scale. 21:09 Reassessment: Patient and/or family updated on plan of care and expected duration. Pain br2 level reassessed. Patient is alert, oriented x 3, equal unlabored respirations, skin warm/dry/pink. SYMPTOMS IMPROVED A LITTLE. Vital Signs: 18:47 BP 156 / 78; Pulse 97; Resp 20; Temp 100.4(O); Pulse Ox 100% on R/A; Weight 97.52 kg; hb Height 5 ft. 6 in. ; Pain 10/10; 20:22 BP 156 / 75; Pulse 82; Resp 18 S; Pulse Ox 98% on R/A; br2 20:27 BP 134 / 69; Pulse 82; Resp 18 S; Temp 100; Pulse Ox 98% on R/A; br2 18:47 Body Mass Index 34.70 (97.52 kg, 167.64 cm) hb 18:47 Pain Scale: Adult hb ED Course: 18:39 Patient arrived in ED. im 18:41 Humza Knox PA is PHCP. cp 18:41 Humza Hill MD is Attending Physician. cp 18:49 Triage completed. hb 18:50 Arm band placed on. hb 19:00 Report received from CY BAILEY. br2 19:05 Patient has correct armband on for positive identification. Bed in low position. Call br2 light in reach. Side rails up X 1. Provided Education on: plan of care. 19:10 Korin Tovar RN is Primary Nurse. br2 21:47 XRAY Chest (1 view) In Process Unspecified. EDMS 22:05 No provider procedures requiring assistance completed. IV discontinued, intact, br2 bleeding controlled, No redness/swelling at site. Pressure dressing applied. Administered Medications: 19:22 Drug: Tussionex Pennkinetic ER PO Suspension 5 ml PO once Route: PO; br2 20:00 Follow up: Response: No adverse reaction br2 19:23 Drug: Ibuprofen PO 800 mg PO once Route: PO; br2 20:00 Follow up: Response: No adverse reaction br2 22:06 Drug: Acetaminophen PO 1000 mg PO once Route: PO; br2 22:06 Follow up: Response: Medication administered at discharge. br2 Medication: 22:05 VIS not applicable for this client. br2 Outcome: 21:53 Discharge ordered by MD. cp 22:05 Discharged to home ambulatory, br2 22:05 Condition: improved 22:05 Discharge instructions given to patient, Instructed on discharge instructions, follow up and referral plans. medication usage, Demonstrated understanding of instructions, follow-up care, medications, Prescriptions given X 3, 22:09 Patient left the ED. br2 Signatures: Dispatcher [employer] EDMS Humza Knox PA PA cp Baxter, Heather, RN RN Gely Mitchell Belinda, RN RN br2 Corrections: (The following items were deleted from the chart) 18:50 18:49 Social history: Smoking status: Patient denies any tobacco usage or history of. [facility] 20:27 19:05 Reassessment: Patient and/or family updated on plan of care and expected br2 duration. Pain level reassessed. Patient is alert, oriented x 3, equal unlabored respirations, skin warm/dry/pink. Patient states feeling better. Patient states symptoms have improved. br2 21:11 20:27 BP 134 / 69; Pulse 82bpm; Resp 18bpm; Spontaneous; Pulse Ox 98% RA; br2 br2
--- NOTE | 2024-08-02 21:54 | RAD REPORT ---
EXAM: Chest Single View HISTORY: Cough;Fever COMPARISON: 01/26/2023 FINDINGS: LUNGS/PLEURA: The lungs are clear. No pleural effusions or pneumothorax. No pulmonary edema. MEDIASTINUM: The mediastinal silhouette is within normal limits. CARDIAC: Within normal limits. UPPER ABDOMEN: No significant abnormality. BONES: No acute fracture. LINES/TUBES/OTHER: N/A IMPRESSION: No evidence of acute cardiopulmonary disease.
[2024-08-02] MEDS ORDERED: ACETAMINOPHEN 500 MG TAB ONE (22:01)
[2024-08-02 23:06] VITALS: O2SAT 98
[2024-08-02 23:08] VITALS: BP 134/69; TEMP 100
== END 2024-08-02 22:09 | disposition home or self-care (01) ==
LOC: ER 18:37
DX: J10.1 Influenza due to other identified influenza virus with other respiratory manifestations (principal); Z11.52 Encounter for screening for COVID-19
CPT/HCPCS: 36415; 71045; 87070; 87081; 87804; 87807; 87811; 99283

== ENCOUNTER 2024-10-30 06:08 | Day surgery (SDC) | payer BC, OTHER ==
[2024-10-27 11:27] LABS: Absolute Basophils 0.1 K/uL (0-0.5); Absolute Eosinophils 0.3 K/uL (0-0.5); Absolute Lymphocytes (CBC) 3.1 K/uL (0.7-4.9); Absolute Monocytes 0.7 K/uL (0.1-1.3); Basophils % 0.8 % (0-1.3); Eosinophils % 4.2 % (0-4.4); Hematocrit 38.2 % (36.0-45.0); Lymphocytes % 38.2 % (15.3-44.8); MCH 30.9 pg (27.0-35.0); MCHC 33.9 g/dL (32.0-36.0); MCV 91.2 fL (80-100); MPV 8.4 fL (7.6-11.3); Monocytes % 8.6 % (3.3-12.3); Neutrophils % 48.2 % (41.7-73.7); Platelets 317 thou/uL (152-406); RBC Red Blood Cell Count 4.19 M/uL (3.86-4.86); Red Cell Distribution Width 12.8 % (12.1-15.2)
[2024-10-27 11:41] LABS: Anion Gap 5.9 mEq/L (5.0-15.0); Potassium 3.9 mEq/L (3.5-5.1)
--- NOTE | 2024-10-27 11:59 | EKG ---
Test Date: 2024-10-27 Test Time: 10:58:03 Case Assembler: ALVIN MEASUREMENT RESULTS: Intervals: Rate: 73 NV: 160 QRSD: 94 QT: 362 QTc: 398 [place]: P: 59 NV: 160 QRS: 59 T: 28 INTERPRETIVE STATEMENTS: Normal sinus rhythm Normal ECG Compared to ECG 07/03/2022 07:55:16 No significant changes Electronically Signed On 10-27-24 11:59:02 CDT by Yosi Freeman
[2024-10-30] MEDS: NA CHLORIDE 0.9% 1,000 ML ONE (07:00)
[2024-10-30] MEDS ORDERED: MIDAZOLAM HCL 2 MG/2 ML INJ ONE (07:25)
[2024-10-30] MEDS ORDERED: propofoL 200 MG/20 ML VIAL IV ONE (07:35)
[2024-10-30] MEDS ORDERED: LIDOCAINE 2% MPF 5 ML VIAL ONE (07:35)
[2024-10-30] MEDS ORDERED: ROCURONIUM 50 MG/5 ML VIAL IV ONE (07:35)
[2024-10-30] MEDS ORDERED: FENTANYL CITR 100 MCG/2 ML ONE (07:35)
[2024-10-30] MEDS ORDERED: ONDANSETRON 4 MG/2 ML VIAL ONE (07:35)
[2024-10-30] MEDS ORDERED: EPHEDRINE SULF 50 MG/ML VIAL ONE (07:47)
[2024-10-30] MEDS: BUPIVACAINE 0.25% PF 10 ML VIAL ONE (08:02)
[2024-10-30] MEDS: ONDANSETRON 4 MG/2 ML VIAL ONE (08:34)
[2024-10-30] MEDS: PROMETHAZINE INJ 25 MG/ML AMP ONE (08:46)
[2024-10-30] MEDS: HYDROMORPHONE HCL 1 MG/ML INJ ONE (08:51)
[2024-10-30 08:58] VITALS: O2SAT 98
[2024-10-30] MEDS: ACETAMINOPHEN 160 MG/5 ML UCUP ONE (09:23)
[2024-10-30 10:00] VITALS: BP 144/79; TEMP 97.4
[2024-10-30] MEDS ORDERED: SUCCINYLCHOLINE 20 MG/ML (10 ML) IV ONE (10:03)
--- NOTE | 2024-10-30 12:56 | OP ---
Date of Procedure: 10/30/2024 Surgeon: SALVATORE GOMEZ Preoperative Diagnoses: 1. Chronic adenotonsillitis. 2. Benign neoplasm of tonsils. Postoperative Diagnoses: 1. Chronic adenotonsillitis. 2. Benign neoplasm of tonsils. Procedures: 1. Tonsillectomy. 2. Adenoidectomy. Anesthesia: General endotracheal anesthesia was administered. I also infiltrated approximately 10 m L of 0.25% Marcaine without epinephrine into bilateral tonsillar fossa. Estimated Blood Loss: Less than 5 mL. Specimens: Bilateral tonsils. Findings: Bilateral cryptic tonsils 2/4 with left tonsil stones; adenoidal hypertrophy 2/4. Complications: None. Disposition: Stable. The patient tolerated procedure well. Indications For Procedure: The patient is a pleasant 49-year-old female, who presented to my outpati ent clinic with chronic adenotonsillitis since childhood. She has been on multiple medications inclu ding multiple rounds of antibiotics, but still continued to have chronic throat pain secondary to ton antonietta stones and inflammation. These were indications to bring the patient to operative suite for the above-mentioned procedure. She understood. All questions were answered. Risks versus benefits and complications were explained in detail and a consent form signed, which was placed on the chart. Description Of Procedure: The patient was transferred from the preoperative holding area to the oper ative suite by Department of Anesthesia, placed on the operating table supine, sedated and intubated in normal fashion. Table was rotated 90 degrees and a shoulder roll was placed. Head and eyes were covered with sterile blue towels and moist Ray-Izabel placed over the upper lip. The McIvor retractor w as introduced to the right oral commissure and directed along the endotracheal tube and suspended fro m the [place] stand. Right tonsil was removed by retracting the superior pole midline and I dissected t hrough the mucosa down the peritonsillar fascial plane with monopolar electrocautery on a setting of 20 for coagulation and 1 of cutting. Dissection continued within the plane whereby the inferior pole was amputated with suction Bovie. I then removed the left tonsil by retracting the superior pole mi dline and I dissected through the mucosa down the peritonsillar fascial plane with monopolar electroc autery on a setting of 20 for coagulation and 1 of cutting. I dissected inferiorly to the inferior p ole whereby the pole was amputated with suction Bovie. Saline irrigation was introduced into oral ca vity and removed with suction Bovie. Next, a red rubber catheter was introduced into the left nasal cavity in order to suspend the soft pa late and uvula. A small amount of adenoid tissue was removed by using 35 of coagulation and 20 of cu tting to perform. Saline irrigation was introduced into oral cavity and removed with suction Bovie. Approximately 10 mL of 0.25% Marcaine without epinephrine was infiltrated into bilateral tonsillar f benedicto and then a flexible orogastric tube was inserted into the esophagus and stomach and all fluid co ntents were removed. The patient was de-suspended from the [place] stand. The McIvor retractor was removed. The patient's j aw was checked and found to be in proper alignment. She was transferred back to Department of Anesth esia in stable condition, subsequently awakened, extubated, and transferred to postoperative care [facility] and discharged home on analgesic medication and will follow up in 2 to 4 weeks or sooner if needed. SHERIN/VEDA Voice ID: [id number] Report ID: [id number]
== END 2024-10-30 10:03 | disposition home or self-care (01) ==
LOC: OR 06:08
PROVIDERS: ATTEND Otolaryngology Facial Plastic Surgery
PROC: 0CTPXZZ Resection of Tonsils, External Approach (ICD-10-PCS; 2024-10-30)
PROC: 0CTQXZZ Resection of Adenoids, External Approach (ICD-10-PCS; principal; 2024-10-30 07:30)
DX: J35.03 Chronic tonsillitis and adenoiditis (principal)
CPT/HCPCS: 36415; 80048; 85025; 88304; 93005; J1171; J2003; J2250; J2405; J2550; J2704; J3010; J7030